=== PATIENT | male | born 1960 | race Caucasian/White ===

== ENCOUNTER → 2018-07-27 12:34 | Outpatient (CLI) | payer OTHER, SELFPAY ==
--- NOTE | 2018-07-27 12:38 | XR_ITS ---
XR shoulder LT min 2V HISTORY: ITS.REASON: Shoulder pain ORDERING PHYSICIAN: Devika Heath MD PATIENT AGE: 58 years Comparison: None FINDINGS: Osteoarthritic changes are present at the acromioclavicular joint. There is subacromial narrowing which may result in impingement symptomatology. Mild irregularity is present involving the greater tuberosity cortical surface which may be seen with rotator cuff disease. No acute fracture or dislocation. No lytic or blastic change. There is some cortical thickening of the distal shaft of the clavicle. Has the patient had an old clavicular fracture? IMPRESSION: Acromioclavicular arthropathy with subacromial stenosis which may result in impingement symptomatology. Please correlate with clinical findings
== END ==
PROVIDERS: PCP Family Medicine; Visit Provider Orthopaedic Surgery
DX: M25.512 Pain in left shoulder (principal)
CPT/HCPCS: 73030

== ENCOUNTER → 2022-07-06 14:16 | Outpatient (CLI) | payer OTHER, SELFPAY ==
--- NOTE | 2022-07-06 14:24 | CA_ITS ---
APPROVED REPORT EXAM: Comprehensive 2D, Doppler, and color-flow Echocardiogram College Administrator: HELIO Cabrera, RVS Ht: 5 ft 5 in Wt: 257lbs BSA: 2.20 BP: 130/78 mmHg Indications: SOA, Obesity, DM, HTN, HLD Echo Enhancing Agent Comments: Poor acoustic windows due to exterme body habitus. 2D Dimensions IVSd 1.17 cm LVEF (Visual) 64.50 % PWd 1.41 cm LA Volume 51.90 mL LVDd 5.17 cm LA Volume Index [id number] mL/m2 (M/F) 16-34 LVDs 3.34 cm LVOT 1.85 cm (M/F) 1.5-2.5 M-Mode Dimensions LA Diam 4.30 cm (1.9-4.0) Ao Diam 3.32 cm (2.0-3.7) EPSs 0.72 cm TAPSE 2.29 (<1.7) LV Diastology E Decel Time 203.00 (160-240 msec) E/A Ratio 0.99 MED E' 6.90 (< 7 cm/sec) MED A' 11.80 cm/s E'/MED E' Ratio 13.88 (>14) LAT E' 6.20 (<10 cm/sec) LAT A' 9.30 cm/s E/LAT E' Ratio 15.45 (>14) Aortic Valve LVOT Max 136.00 (70-110 cm/s) LVOT VTI 25.08 cm AoV Peak Coleman. 175.00 (50-130 cm/s) AO Peak GR. 12.30 mmHg AO Mean GR. 6.10 (<5 mmHg) AO VTI 31.00 (18-25 cm) RADHA (VTI) 2.17 (2.5-4.5 cm2) Mitral Valve MV A Velocity 97.00 (40-130 cm/s) E/A Ratio 0.99 MV Decel. Time 203.00 (160-240 ms) Pulmonary Valve PV Peak Velocity 130.00 (50-150 cm/s) Tricuspid Valve TR P. Velocity 152.00 cm/s Left Ventricle Left atrium is mildly enlarged, left ventricle is normal size, mild concentric left ventricular hypertrophy, estimated ejection fraction 55% with no regional wall motion abnormality. Grade 1 diastolic dysfunction seen without tissue Doppler evidence of raise left atrial pressure. Right Ventricle Right atrium and right ventricle are mildly enlarged with normal contractility. Aortic Valve Aortic valve is minimally thickened and fibrosed there is no aortic stenosis or aortic insufficiency. Mitral Valve Mitral valve is grossly normal, there is trace mitral regurgitation. Tricuspid Valve Tricuspid valve grossly normal, there is trace tricuspid regurgitation, tricuspid regurgitation jet velocity is inadequate for calculation of the right ventricular systolic pressure. Pulmonic Valve Pulmonic valve is poorly visualized. Great Vessels Aortic root is normal size. Inferior vena cava is poorly visualized. Pericardium No significant pericardial effusion noted. Conclusion 1. Technically difficult study because of the patient factors and poor acoustic windows. Mild biatrial enlargement, normal left ventricular size, mild concentric left ventricular hypertrophy, estimated ejection fraction 55% with no regional wall motion abnormality, grade 1 diastolic dysfunction seen without tissue Doppler evidence of raise left atrial pressure. 2. Mildly enlarged right ventricle with normal contractility. 3. Trace mitral and tricuspid regurgitation. 4. No significant pericardial effusion noted. 5. Inferior vena cava is poorly visualized. Electronically signed by : Bogdan Lara MD 07/07/2022 19:01:28
--- NOTE | 2022-07-06 14:51 | XR_ITS ---
FINAL REPORT TECHNIQUE: Chest PA & Lateral CLINICAL HISTORY: SOB FINDINGS: 2 views of the chest were performed. The heart size is normal. The mediastinum is within normal limits. There is no acute cardiopulmonary process. There are mild chronic changes in both lungs. There are no pleural effusions. There is no pneumothorax. The bony thorax appears intact. IMPRESSION: No acute cardiopulmonary process. Reviewed, Interpreted and Dictated by Yonis Coleman MD Transcribed by An Syed Authenticated and [facility]
== END ==
PROVIDERS: PCP Family Medicine; Visit Provider Family Medicine
DX: R06.02 Shortness of breath (principal)
CPT/HCPCS: 71046; 93306

== ENCOUNTER → 2022-08-05 10:30 | Outpatient (CLI) | payer OTHER, SELFPAY ==
[2022-08-05 19:29] LABS: Anion Gap 15.9 mEq/L (5-15); Blood Urea Nitrogen 17 mg/dl (9-20); Calcium 10.3 mg/dl (8.4-10.2); Carbon Dioxide 28 mmol/L (22.0-30.0); Chloride 102 mmol/L (98-107); Chol/HDL Ratio 5.7 (1-3.5); Cholesterol 176 mg/dl (140-200); Estimated Glomerular Filt Rate 114 ml/min (>60); GFR (African American) 138 ML/MIN (>60); Glucose 137 mg/dl (74-100); HDL Cholesterol 31 mg/dl (40-60); Potassium 4.9 mmoL/L (3.5-5.1); Sodium 141 mmol/L (136-145); Triglycerides 381 mg/dl (30-150); VLDL Cholesterol 76 mg/dL (0-40)
[2022-08-05 19:40] LABS: Direct LDL Cholesterol 73.47 mg/dL (100-129)
[2022-08-05 19:53] LABS: Microalbumin/Creatinine Ratio 215.2
[2022-08-05 19:55] LABS: Creatinine,Urine Random 17 mg/dL (Not Estab.)
[2022-08-05 20:00] LABS: Thyroid Stimulating Hormone 0.64 uIU/mL (0.465-4.68)
== END ==
PROVIDERS: PCP Family Medicine; Visit Provider Family Medicine
DX: E11.9 Type 2 diabetes mellitus without complications (principal); Z79.84 Long term (current) use of oral hypoglycemic drugs
CPT/HCPCS: 80048; 80061; 82043; 82570; 84443

== ENCOUNTER → 2022-10-07 23:30 | Outpatient (CLI) | payer OTHER, SELFPAY ==
[2022-10-07 19:20] LABS: Anion Gap 14.4 mEq/L (5-15); Blood Urea Nitrogen 15 mg/dl (9-20); Calcium 9.3 mg/dl (8.4-10.2); Carbon Dioxide 26 mmol/L (22.0-30.0); Chloride 103 mmol/L (98-107); Estimated Glomerular Filt Rate 136 ml/min (>60); GFR (African American) 165 ML/MIN (>60); Glucose 135 mg/dl (74-100); Potassium 4.4 mmoL/L (3.5-5.1); Sodium 139 mmol/L (136-145)
== END ==
PROVIDERS: PCP Family Medicine; Visit Provider Family Medicine
DX: I10 Essential (primary) hypertension (principal)
CPT/HCPCS: 80048

== ENCOUNTER → 2022-11-30 23:21 | Outpatient (CLI) | payer OTHER, SELFPAY ==
[2022-11-30 17:55] LABS: Adenovirus,PCR Not Detected (NotDetected); Bordetella Pertussis Not Detected (NotDetected); Chlamydophila Pneumoniae, PCR Not Detected (NotDetected); Coronavirus 19, PCR Not Detected (NotDetected); Coronavirus 229E Not Detected (NotDetected); Coronavirus NL63 Not Detected (NotDetected); Coronavirus OC43 Not Detected (NotDetected); Coronovirus HKU1,PCR Not Detected (NotDetected); Human Metapneumovirus Not Detected (NotDetected); Influenza A, PCR Not Detected (NotDetected); Influenza AH1, 2009 Not Detected (NotDetected); Influenza AH1, PCR Not Detected (NotDetected); Influenza AH3,PCR Not Detected (NotDetected); Influenza B, PCR Not Detected (NotDetected); Mycoplasma Pneumoniae, PCR Not Detected (NotDetected); Parainfluenza 1, PCR Not Detected (NotDetected); Parainfluenza 2, PCR Not Detected (NotDetected); Parainfluenza 4, PCR Not Detected (NotDetected); Respiratory Syncytial Virus Not Detected (NotDetected); Rhinovirus/Enterovirus Not Detected (NotDetected)
[2022-11-30 18:49] LABS: Basophils # 0.1 K/mm3 (0-0.2); Basophils % 0.7 % (0.1-2.0); Eosinophils # 0.2 K/mm3 (0.0-0.4); Eosinophils % 3.1 % (0.1-12.0); Hematocrit 53.8 % (42.0-52.0); Hemoglobin 16.4 g/dL (14.1-18.0); Lymphocytes # 1.7 K/mm3 (0.7-4.5); Mean Corpuscular HGB Conc 30.5 g/dL (31.8-35.4); Mean Corpuscular Hemoglobin 29.3 pg (27.0-31.2); Mean Corpuscular Volume 96.1 fl (80-94); Mean Platelet Volume 9.1 fl (7.4-10.4); Monocytes # 0.6 K/mm3 (0.1-1.0); Monocytes % 8.7 % (1.7-9.3); Neutrophils # 4.1 K/mm3 (1.8-7.8); Neutrophils % 61.5 % (37.0-80.0); Platelet Count 201 K/mm3 (142-424); White Blood Count 6.6 K/mm3 (4.8-10.8)
[2022-11-30 20:48] LABS: Parainfluenza 3, PCR Detected (NotDetected)
== END ==
PROVIDERS: PCP Nurse Practitioner; Visit Provider Nurse Practitioner
DX: J06.9 Acute upper respiratory infection, unspecified (principal); B34.8 Other viral infections of unspecified site
CPT/HCPCS: 85025; 87581; 87632; 87798; C9803; U0003; U0005

== ENCOUNTER → 2023-01-13 11:51 | Outpatient (CLI) | payer OTHER, SELFPAY ==
--- NOTE | 2023-01-13 12:05 | XR_ITS ---
FINAL REPORT CLINICAL HISTORY: cough COMPARISON: 07/06/2022 FINDINGS: Two views of the chest were obtained. The heart size and pulmonary vascularity are within normal limits. The mediastinum is normal. No acute pulmonary abnormality is identified. There is no pneumothorax. The bony thorax is intact. IMPRESSION: No active cardiopulmonary disease. Reviewed, Interpreted and Dictated by Ba Wilson III, MD Transcribed by Carley Mike Authenticated and [facility]
--- NOTE | 2023-01-13 12:05 | XR_ITS ---
FINAL REPORT CLINICAL HISTORY: low back pain FINDINGS: LUMBAR SPINE Five views demonstrate no acute fracture. There is a mild chronic T12 compression fracture. Mild and moderate degenerative changes with osteophytes are present. There is mild vascular calcification. Note is made of rightward curvature. There is no malalignment. IMPRESSION: Degenerative and chronic appearing findings. Reviewed, Interpreted and Dictated by Ba Wilson III, MD Transcribed by Carley Mike Authenticated and [facility]
[2023-01-13 13:06] LABS: Basophils # 0.1 K/mm3 (0-0.2); Basophils % 0.3 % (0.1-2.0); Eosinophils # 0.1 K/mm3 (0.0-0.4); Eosinophils % 0.4 % (0.1-12.0); Hematocrit 50.6 % (42.0-52.0); Hemoglobin 15.8 g/dL (14.1-18.0); Lymphocytes # 1.7 K/mm3 (0.7-4.5); Lymphocytes % 9.7 % (10-50); Mean Corpuscular HGB Conc 31.2 g/dL (31.8-35.4); Mean Corpuscular Hemoglobin 29.2 pg (27.0-31.2); Mean Corpuscular Volume 93.4 fl (80-94); Mean Platelet Volume 9.1 fl (7.4-10.4); Monocytes % 5.4 % (1.7-9.3); Neutrophils % 84.1 % (37.0-80.0); Platelet Count 248 K/mm3 (142-424); Red Blood Count 5.41 M/mm3 (4.60-6.20); Red Cell Distribution Width 13.8 % (11.5-17.5); White Blood Count 17.9 K/mm3 (4.8-10.8)
[2023-01-13 13:07] LABS: Creatinine,Urine Random 53 mg/dL (Not Estab.)
[2023-01-13 13:11] LABS: MANUAL DIFFERENTIAL MANUAL DIFFERENTIAL (MANUAL DIFF)
[2023-01-13 14:47] LABS: Lymphocytes % 11 % (10-50); Monocytes % 7 % (2-9); Neutrophils % 82 % (42-76); Platelet Estimate Normal; RBC Morphology Normal; Total Cells Counted 100
[2023-01-13 22:00] LABS: Creatinine,Urine Random 34 mg/dL (Not Estab.)
[2023-01-13 22:27] LABS: Microalbumin/Creatinine Ratio 161.7
== END ==
PROVIDERS: PCP Family Medicine; Visit Provider Family Medicine
DX: M54.50 Low back pain, unspecified (principal); R05.9 Cough, unspecified; E11.9 Type 2 diabetes mellitus without complications; Z79.84 Long term (current) use of oral hypoglycemic drugs
CPT/HCPCS: 36415; 71046; 72110; 82043; 82570; 85007; 85025

== ENCOUNTER → 2023-02-03 11:30 | Outpatient (CLI) | payer OTHER, SELFPAY ==
[2023-02-03 18:43] LABS: Basophils % 0.5 % (0.1-2.0); Eosinophils # 0.1 K/mm3 (0.0-0.4); Eosinophils % 1.9 % (0.1-12.0); Hematocrit 52.7 % (42.0-52.0); Hemoglobin 16.2 g/dL (14.1-18.0); Lymphocytes # 2.2 K/mm3 (0.7-4.5); Lymphocytes % 33.1 % (10-50); Mean Corpuscular HGB Conc 30.9 g/dL (31.8-35.4); Mean Corpuscular Hemoglobin 28.6 pg (27.0-31.2); Mean Corpuscular Volume 92.6 fl (80-94); Mean Platelet Volume 9.9 fl (7.4-10.4); Monocytes # 0.4 K/mm3 (0.1-1.0); Monocytes % 6.5 % (1.7-9.3); Neutrophils # 3.9 K/mm3 (1.8-7.8); Platelet Count 242 K/mm3 (142-424); Red Blood Count 5.69 M/mm3 (4.60-6.20); Red Cell Distribution Width 14.2 % (11.5-17.5); White Blood Count 6.7 K/mm3 (4.8-10.8)
[2023-02-03 19:48] LABS: Alanine Aminotransferase 44 U/L (12-78); Albumin Level 4.6 g/dl (3.5-5.0); Albumin/Globulin Ratio 1.9 (1.1-1.8); Alkaline Phosphatase 124 U/L (38-126); Anion Gap 19.6 mEq/L (5-15); Aspartate Amino Transferase 38 U/L (17-59); Bilirubin,Total 0.4 mg/dl (0.2-1.3); Blood Urea Nitrogen 12 mg/dl (9-20); Calcium 9.4 mg/dl (8.4-10.2); Carbon Dioxide 29 mmol/L (22.0-30.0); Chloride 97 mmol/L (98-107); Estimated Glomerular Filt Rate 167 ml/min (>60); GFR (African American) 203 ML/MIN (>60); Globulin 2.4 g/dL (1.3-3.2); Glucose 135 mg/dl (74-100); Magnesium 1.8 mg/dl (1.6-2.3); Phosphorous 3.9 mg/dl (2.5-4.5); Potassium 4.6 mmoL/L (3.5-5.1); Sodium 141 mmol/L (136-145)
[2023-02-03 20:04] LABS: 25-OH Vitamin D, Total 21.7 ng/mL (30-100)
[2023-02-03 20:15] LABS: Thyroid Stimulating Hormone 0.46 uIU/mL (0.465-4.68)
[2023-02-03 20:34] LABS: Vitamin B12 266 pg/mL (239-931)
== END ==
PROVIDERS: PCP Family Medicine; Visit Provider Family Medicine
DX: R53.83 Other fatigue (principal); I10 Essential (primary) hypertension; E55.9 Vitamin D deficiency, unspecified; E11.9 Type 2 diabetes mellitus without complications; Z79.84 Long term (current) use of oral hypoglycemic drugs
CPT/HCPCS: 80053; 82306; 82607; 83735; 84100; 84443; 85025

== ENCOUNTER → 2023-02-08 09:07 | Outpatient (CLI) | payer OTHER, SELFPAY | PROVIDERS: PCP Family Medicine; Visit Provider Family Medicine | DX: G47.33 Obstructive sleep apnea (adult) (pediatric) (principal); I10 Essential (primary) hypertension; R06.83 Snoring; R53.83 Other fatigue; E66.01 Morbid (severe) obesity due to excess calories | CPT/HCPCS: G0399 ==

== ENCOUNTER → 2023-08-12 16:46 | Outpatient (CLI) | payer OTHER, SELFPAY ==
--- NOTE | 2023-08-12 16:48 | MR_ITS ---
FINAL REPORT CLINICAL HISTORY: BILATERAL LOW BACK PAIN COMPARISON: None FINDINGS: Multiplanar MR imaging of the lumbar spine was performed without contrast. On the sagittal T2-weighted images, there is abnormal decreased signal throughout the lumbar discs. There is 30% loss of height of the superior endplate of T12 with associated bone marrow edema, likely an acute to subacute compression fracture. The vertebral alignment is normal. L1-2: There is no significant canal stenosis or neural foraminal narrowing. L2-3: There is no significant canal stenosis or neural foraminal narrowing. L3-4: There is no significant canal stenosis or neural foraminal narrowing. L4-5: There is no significant canal stenosis or neural foraminal narrowing. L5-S1: Mild annular bulge is present with endplate hypertrophy eccentric to the right, producing moderate right neural foraminal narrowing. IMPRESSION: 30% loss of height of the superior endplate of T12 with associated bone marrow edema, consistent with an acute to subacute compression fracture. Mild degenerative change at the L5-S1 level. Reviewed, Interpreted and Dictated by Yonis Coleman MD Transcribed by Natali Castillo Authenticated and [facility]
== END ==
PROVIDERS: PCP Family Medicine; Visit Provider Family Medicine
DX: M51.36 Other intervertebral disc degeneration, lumbar region (principal); M54.50 Low back pain, unspecified
CPT/HCPCS: 72148; 76376

== ENCOUNTER → 2023-09-09 09:02 | Outpatient (POV) | payer OTHER, SELFPAY ==
[2023-09-09 09:38] VITALS: BP 165/73; PULSE 87; RESP 18; O2SAT 92; BMI 40.2
--- NOTE | 2023-09-09 09:56 | EXP.PAIN.OV ---
HPI Data of Consult Patient: new to practice Consult date: 09/09/23 Requesting Physician: Kristin Low APRN Primary Care Provider: Harshal Garcia MD Consult Narrative Reason for consult: Mid back pain, low back pain History of present illness: Mr. Devries is a 63 year old male who presents today as a new patient. He is a referral from Dr. Garcia's office. Today he rates his pain an 8 out of 10. Patient states his pain is all in his mid to low back. He describes this as a fairly constant pain that is hard to describe. He states it is worse when he is getting up in the mornings and trying to get up and move around. He states the pain can go to a 10 out of 10. He states it is a achy, sharp sensation that does radiate around the bottom of his ribs and can go towards the left side of his abdomen. Patient states this is all related to a fall that occurred back in around March where he fell off a ladder. Patient does state he immediately had sharp shooting pains however it has gotten a little better from the initial injury. He states he had trouble getting imaging done due to insurance problems. Patient states that they just got the MRI approved in July. Patient states he has used Tylenol and ibuprofen along with heat and ice and topicals such as Aspercreme for temporary relief. Patient denies any recent physical therapy. Patient states that he tries to stay active but is limited due to the worsening pain. Patient denies any previous back surgery or history of osteoporosis to his knowledge. Patient does state that he had previous issues with his shoulders and did use to get steroid injections. Patient denies any blood thinners. His Tony has been reviewed and is appropriate. CC: Kristin Low APRN [facility] Disclaimer: The information contained in this section may have been updated after the patient was seen, as this information can be updated by other users. 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 Diastolic dysfunction DM type 2 (diabetes mellitus, type 2) Gout Hyperlipemia Hypertension Morbid obesity Negative colorectal cancer screening using DNA-based stool test Olecranon bursitis of left elbow Vitamin D deficiency Surgical History History of rotator cuff surgery History of tonsillectomy Family History Other Heart attack Stroke Social History (Updated 09/09/23 @ 09:39 by Poppy Tapia RN) Smoking Status: Never smoker alcohol intake: never current occupational status: employed Travel in the last 8 weeks: None Review of Systems Review of Systems Review of systems:: pertinent systems reviewed and negative unless documented below Review of systems (narrative): Review of Systems: General: No recent weight changes, no fever, no sleep disturbances Respiratory: No cough, no shortness of air, no recurring pulmonary infections Cardiovascular/peripheral vascular: No chest pain, no palpitations, no edema, no shortness of breath Gastrointestinal: No new onset incontinence, normal bowel movements reported Genitourinary: No new onset incontinence Musculoskeletal: Mid back pain, low back pain Psychiatric: [Normal mood/affect] Neurological: [Denies weakness in extremities], [denies balance issues] Meds Home Medications and Allergies Home Medications Medication Instructions Recorded Confirmed Type meloxicam 15 mg tablet 15 mg PO DAILY 03/11/22 09/09/23 History fluticasone propionate 50 1 spray intranasal DAILY #16 grams 08/31/22 09/09/23 Rx mcg/actuation nasal spray,suspension (Allergy Relief (fluticasone)) albuterol sulfate 90 mcg/actuation 2 puff inhalation Q4-6H PRN 11/30/22 09/09/23 Rx aerosol inhaler shortness of breath or wheezing #8.5 grams diazepam 5 mg tablet 5 mg PO DAILY PRN prior to 02/03/23 09/09/23 Rx procedure #1 tab blood sugar diagnostic (Accu-Chek #50 strips 02/17/23 09/09/23 Rx Jaz Plus test strips) ertugliflozin 15 mg tablet See Rx Instructions .Route 05/19/23 09/09/23 Rx (Steglatro) .COMPLEX #30 tabs pioglitazone 30 mg tablet 30 mg PO DAILY #90 tabs 07/08/23 09/09/23 Rx losartan 100 mg tablet See Rx Instructions .Route 07/27/23 09/09/23 Rx .COMPLEX #90 tabs spironolactone 25 mg tablet 25 mg PO DAILY #90 tabs 07/27/23 09/09/23 Rx simvastatin 20 mg tablet See Rx Instructions .Route 08/02/23 09/09/23 Rx .COMPLEX #30 tabs allopurinol 300 mg tablet See Rx Instructions .Route 08/16/23 09/09/23 Rx .COMPLEX #30 tabs metformin 1,000 mg tablet See Rx Instructions .Route 08/16/23 09/09/23 Rx .COMPLEX #60 tabs New Prescriptions to Start Prescriptions: Allergies Allergy/AdvReac Type Severity Reaction Status Date / Time No Known Allergies Allergy Verified 02/17/23 09:40 Objective Vital signs: Pulse Resp BP Pulse Ox O2 Del Method 87 18 165/73 H 92 L Room Air 09/09/23 09:38 09/09/23 09:38 09/09/23 09:38 09/09/23 09:38 09/09/23 09:38 Narrative: Physical Exam: General: Alert and oriented x3, no acute distress, pleasant and cooperative Lungs: Respirations even and unlabored, symmetrical chest expansion Eyes: PERRL Musculoskeletal: Flexion and extension of thoracic [spine] somewhat guarded secondary to pain, [antalgic gait noted] Neurological: Speech clear, no gross sensory deficit Additional findings Additional findings: FINDINGS: Multiplanar MR imaging of the lumbar spine was performed without contrast. On the sagittal T2-weighted images, there is abnormal decreased signal throughout the lumbar discs. There is 30% loss of height of the superior endplate of T12 with associated bone marrow edema, likely an acute to subacute compression fracture. The vertebral alignment is normal. L1-2: There is no significant canal stenosis or neural foraminal narrowing. L2-3: There is no significant canal stenosis or neural foraminal narrowing. L3-4: There is no significant canal stenosis or neural foraminal narrowing. L4-5: There is no significant canal stenosis or neural foraminal narrowing. L5-S1: Mild annular bulge is present with endplate hypertrophy eccentric to the right, producing moderate right neural foraminal narrowing. IMPRESSION: 30% loss of height of the superior endplate of T12 with associated bone marrow edema, consistent with an acute to subacute compression fracture. Mild degenerative change at the L5-S1 level. Reviewed, Interpreted and Dictated by Yonis Coleman MD Transcribed by Natali Castillo Authenticated and [facility] Assessment and Plan *Assessment and plan (1) Degenerative disc disease, lumbar: Status: Acute Category: Medical Code(s): M51.36 - Other intervertebral disc degeneration, lumbar region (2) Compression fracture of thoracic vertebra: Status: Acute Qualifiers: Thoracic vertebra fracture level: T12 Fracture healing: with delayed healing Encounter type: subsequent encounter Qualified Code(s): S22.080G - Wedge compression fracture of T11-T12 vertebra, subsequent encounter for fracture with delayed healing Category: Medical Code(s): S22.000A - Wedge compression fracture of unspecified thoracic vertebra, initial encounter for closed fracture (3) Mid back pain: Status: Acute Category: Medical Code(s): M54.9 - Dorsalgia, unspecified (4) Low back pain: Status: Acute Qualifiers: Chronicity: acute Back pain laterality: bilateral Sciatica presence: without sciatica Qualified Code(s): M54.50 - Low back pain, unspecified Category: Medical Code(s): M54.50 - Low back pain, unspecified Plan Patient is experiencing significant pain in his mid back related to a recent compression fracture of T12. I have discussed with the patient that he may be a beneficial candidate of a kyphoplasty procedure however due to this fracture occurring possibly in March we will review the images additionally with Dr. Hogue. Risk and benefits and educational handouts were given during today's visit. I will order a DEXA scan to review possible osteoporosis diagnosis. I have discussed with the patient that I do believe he would benefit from a thoracic epidural steroid injection at this level. Patient is agreeable to this. Risk and benefits were discussed with the patient and he would like to proceed forward. Patient is not on any blood thinners. We will schedule the patient for a TESI T12. Patient has been instructed to contact the clinic with any concerns before the next appointment. Dr. Hogue has reviewed this note and agrees with this plan of care. This note was dictated using voice recognition software and make contain errors or omissions.
== END ==
LOC: SC.PAIN 09:03
PROVIDERS: PCP Family Medicine; Visit Provider Nurse Practitioner Family
DX: M51.36 Other intervertebral disc degeneration, lumbar region (principal); S22.080G Wedge compression fracture of T11-T12 vertebra, subsequent encounter for fracture with delayed healing; M54.50 Low back pain, unspecified
CPT/HCPCS: 99202; G0463

== ENCOUNTER 2023-09-29 08:51 | Outpatient (CLI) | payer OTHER, SELFPAY ==
--- NOTE | 2023-09-29 08:55 | XR_ITS ---
FINAL REPORT TECHNIQUE: Bone densitometry calculations of the lumbar spine and left hip were obtained. CLINICAL HISTORY: SCREENING COMPARISON: None FINDINGS: Using L1-4, the bone mineral density of the spine is 0.98 g/cm2, corresponding to T-score of -1 and a Z score of -0.3. This is within the range of mild osteopenia. Using the left hip, the bone mineral density of the femoral neck is 0.76 g/cm2, corresponding to a T-score of -1.3 and a Z-score of -0.2. This is within the range of mild osteopenia. NOTE: T-score: Standard deviation compared with peak bone mass of young adult mean. *Following the recommendations of the International Society of Bone densitometry, classification of hip BMD is based on the lower of two T-scores; total hip or femoral neck. IMPRESSION: Bone mineral density of the lumbar spine within the range of mild osteopenia. Bone mineral density of the left femoral neck within the range of mild osteopenia. Reviewed, Interpreted and Dictated by Brinda Dunlap MD Transcribed by Natali Castillo Authenticated and [facility]
== END 2023-09-29 23:59 ==
LOC: RAD 08:51
PROVIDERS: PCP Family Medicine; Visit Provider Nurse Practitioner Family
DX: S22.000A Wedge compression fracture of unspecified thoracic vertebra, initial encounter for closed fracture (principal); M85.89 Other specified disorders of bone density and structure, multiple sites
CPT/HCPCS: 77080

== ENCOUNTER → 2023-10-21 12:45 | Outpatient (POV) | payer OTHER, SELFPAY ==
--- NOTE | 2023-10-21 13:18 | A.OFFVIS_ITS ---
[facility] Pain Management SOAP Note Subjective:: Patient is a pleasant 63-year-old who presents today for insurance denial of a kyphoplasty of T12 as well as a thoracic epidural of T12. We are currently treating the patient for mid to low back pain, degenerative disc disease of thoracic and lumbar spine with thoracic and lumbar radiculopathy symptoms, T12 superior endplate fracture. Today he rates his pain a 5 out of 10. Patient states he continues to have significant pain in and around his mid to low back more prominent on the left side. He does state it radiates down and describes it as a sharp achy sensation that is worse with increased activity or ambulation. He states he has significant difficulty getting up and going on due to this pain. He states it does interfere with his ability perform activities of daily living such as cooking and cleaning. Patient did have a fall that initially started all of his symptoms back in March where he fell off a ladder however the pain seemed to get better and then worse and just more recently. Patient was denied a MRI up until July and at that time was diagnosed with a compression fracture with 30% height loss. Patient is still wanting to proceed forward with the thoracic epidural and kyphoplasty if possible. Patient has tried Tylenol and ibuprofen along with heat and ice and multiple topicals with minimal relief. Patient is unable to tell right current physical therapy due to the worsening pain and limited range of motion related to the compression fracture. Patient was also given diazepam and tramadol in the past from his primary care provider however this did very little to change his pain symptoms. His Tony has been reviewed and is appropriate. Review of Systems: General: No recent weight changes, no fever, no sleep disturbances Respiratory: No cough, no shortness of air, no recurring pulmonary infections Cardiovascular/peripheral vascular: No chest pain, no palpitations, no edema, no shortness of breath Gastrointestinal: No new onset incontinence, normal bowel movements reported Genitourinary: No new onset incontinence Musculoskeletal: Mid to low back pain Psychiatric: [Normal mood/affect] Neurological: [Denies weakness in extremities], [denies balance issues] Objective:: Physical Exam: General: Alert and oriented x3, no acute distress, pleasant and cooperative Lungs: Respirations even and unlabored, symmetrical chest expansion Eyes: PERRL Musculoskeletal: Flexion and extension of thoracic [spine] somewhat guarded secondary to pain, [antalgic gait noted] point tenderness along the lower thoracic/upper lumbar region with palpation Neurological: Speech clear, no gross sensory deficit Assessment:: Mid to low back pain, degenerative disc disease of thoracic and lumbar spine with thoracic and lumbar radiculopathy symptoms, T12 superior endplate compression fracture Plan:: Patient is still experiencing significant pain related to his compression fracture of the T12 vertebra. Patient does have acute on chronic consistent findings. I have discussed with the patient that I will order a standing thoracic/lumbar x-ray of AP and lateral views to compare it to the previous MRI and determine if the fracture is still evolving. Patient will be resubmitted for the thoracic epidural steroid injection and kyphoplasty if his x-ray imaging findings are consistent with still an acute diagnosis. Risk and benefits of both of these procedures were explained to the patient and he would like to proceed forward with this plan of care. Patient has tried and failed conservative treatment such as oral medications, heat and ice, topicals, at home stretching and exercise longer than 6 weeks. We will submit for a TESI T11-T12 under fluoroscopy and wait until we have x-ray findings to determine whether or not to resubmit for the kyphoplasty. Patient has been instructed to contact the clinic with any concerns before the next appointment. Dr. Hogue has reviewed this note and agrees with this plan of care. This note was dictated using voice recognition software and make contain errors or omissions. [facility] Disclaimer: The information contained in this section may have been updated after the patient was seen, as this information can be updated by other users. 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
--- NOTE | 2023-10-21 13:30 | XR_ITS ---
FINAL REPORT CLINICAL HISTORY: MID BACK PAIN, COMPARE TO RECENT MRI COMPRESSION FX ALL IMAGES WERE DONE STANDING FINDINGS: THORACIC SPINE 2 views were obtained. There is no acute fracture. There is no malalignment. The disc spaces are preserved. There is minimal anterior osteophyte formation in the mid thoracic spine. There is no soft tissue abnormality. IMPRESSION: No acute bony abnormality. LUMBAR SPINE 2 views were obtained. There is no acute fracture. There is no malalignment. There are mild hypertrophic changes at L1-2 and L5-S1. There is no soft tissue abnormality. IMPRESSION: No acute bony abnormality. Reviewed, Interpreted and Dictated by Yonis Coleman MD Transcribed by Jyoti Barcenas Authenticated and [facility]
[2023-10-21 15:24] VITALS: BP 133/67; PULSE 94; RESP 18; O2SAT 92; BMI 39.1
== END ==
PROVIDERS: PCP Family Medicine; Visit Provider Nurse Practitioner Family
DX: M51.14 Intervertebral disc disorders with radiculopathy, thoracic region (principal); M51.16 Intervertebral disc disorders with radiculopathy, lumbar region; M48.54XG Collapsed vertebra, not elsewhere classified, thoracic region, subsequent encounter for fracture with delayed healing
CPT/HCPCS: 72083; 99212; G0463

== ENCOUNTER 2023-11-02 11:17 | Day surgery (SDC) | payer OTHER, SELFPAY ==
[2023-11-02 11:44] VITALS: BP 152/72; PULSE 93; RESP 18; TEMP 36.7; O2SAT 94; BMI 38.3
[2023-11-02] MEDS: methylPREDNISolone ACETATE 80MG/ML VIAL 80 MG (12:10)
--- NOTE | 2023-11-02 12:14 | P.PCN_ITS ---
Procedure Date: 11/02/23 Time: 12:00 Anesthesiologist:: Scott Dominguez CRNA Complications:: None Pre-procedure Diagnosis:: Degenerative disc thoracic spine. Thoracic radiculopathy. Post-procedure Diagnosis:: Same. Indications for Procedure:: Patient is a very pleasant 63-year-old male who comes our clinic today for thoracic epidural steroid injection at the T11-12 level. Patient reports T- spine pain. Some T-spine pain radiculopathy as well. He rates his pain 7/10. Procedure Details:: Procedure:Thoracic epidural steroid injection under fluoroscopy Informed consent was obtained and the risks and benefits of the procedure were explained to the patient. The patient was taken to the procedure room and noninvasive monitors placed, including noninvasive blood pressure cuff and pulse oximeter. The back was viewed using C-Arm fluoroscopy and prepped using Betadine as a cleansing solution and the T11-12 interspace was palpated. Skin and subcutaneous tissues were anesthetized using lidocaine 1.5% and a 25-gauge needle. After this, an 18-gauge Touhy epidural needle was placed into the T11-12 interspace and advanced using fluoroscopic guidance and loss of resistance to air until the epidural space was encountered. After confirmation of needle placement in the epidural space, with dye, a solution containing lidocaine 1.5%, 4 mL and Depo-Medrol 80 mg were incrementally injected into the thoracic epidural space. The patient tolerated the procedure well with no complications. The patient was observed in the Pain Clinic and then discharged home neurologically intact. Plan and Disposition:: Patient was discharged out incident.
[2023-11-02 12:18] VITALS: BP 164/90; PULSE 82; RESP 18; O2SAT 94
== END 2023-11-02 12:18 | disposition home or self-care (01) ==
PROVIDERS: PCP Family Medicine; Visit Provider Nurse Anesthetist, Certified Registered
DX: M51.14 Intervertebral disc disorders with radiculopathy, thoracic region (principal)
CPT/HCPCS: 62321; J1040

== ENCOUNTER 2023-11-17 14:05 | Outpatient (POV) | payer OTHER, SELFPAY ==
[2023-11-17 14:17] VITALS: BP 134/71; PULSE 90; RESP 18; BMI 40.1
--- NOTE | 2023-11-17 14:53 | A.OFFVIS_ITS ---
[facility] Pain Management SOAP Note Subjective:: Patient is a pleasant 63-year-old male who presents today for follow-up of thoracic epidural steroid injection T11-T12 on 11/02/2023. Today he rates his pain a 3 out of 10. Patient denies any new trauma or injury. He states he has had at least 80% relief following this injection and feels like it still providing continuous improvement. He does state that he has been able to increase his activity with decreased pain symptoms overall. He states he will occasionally still have some pain but is much more manageable and not as severe. His Tony has been reviewed and is appropriate. Review of Systems: General: No recent weight changes, no fever, no sleep disturbances Respiratory: No cough, no shortness of air, no recurring pulmonary infections Cardiovascular/peripheral vascular: No chest pain, no palpitations, no edema, no shortness of breath Gastrointestinal: No new onset incontinence, normal bowel movements reported Genitourinary: No new onset incontinence Musculoskeletal: Mid back pain Psychiatric: [Normal mood/affect] Neurological: [Denies weakness in extremities], [denies balance issues] Objective:: Physical Exam: General: Alert and oriented x3, no acute distress, pleasant and cooperative Lungs: Respirations even and unlabored, symmetrical chest expansion Eyes: PERRL Musculoskeletal: Flexion and extension of thoracic [spine] somewhat guarded secondary to pain, [antalgic gait noted] Neurological: Speech clear, no gross sensory deficit Assessment:: Degenerative disc disease of thoracic and lumbar spine with thoracic and lumbar radiculopathy symptoms, T12 superior endplate fracture Plan:: Patient has had significant improvement following his thoracic epidural and does not require any additional injection therapy. Patient will return to clinic in 1 month for reevaluation of symptoms and plan of care. Patient has been instructed to contact the clinic with any concerns before the next appointment. Dr. Hogue has reviewed this note and agrees with this plan of care. This note was dictated using voice recognition software and make contain errors or omissions. [facility] Disclaimer: The information contained in this section may have been updated after the patient was seen, as this information can be updated by other users. 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
== END 2023-11-17 23:59 ==
LOC: SC.PAIN 14:06
PROVIDERS: PCP Family Medicine; Visit Provider Nurse Practitioner Family
DX: M51.14 Intervertebral disc disorders with radiculopathy, thoracic region (principal); M51.16 Intervertebral disc disorders with radiculopathy, lumbar region; S22.080D Wedge compression fracture of T11-T12 vertebra, subsequent encounter for fracture with routine healing
CPT/HCPCS: 99212; G0463

== ENCOUNTER 2023-12-15 08:36 | Outpatient (POV) | payer OTHER, SELFPAY ==
[2023-12-15 08:44] VITALS: BP 173/71; PULSE 73; RESP 18; O2SAT 96; BMI 40.1
--- NOTE | 2023-12-15 09:05 | EXP.PAIN.SOA ---
[facility] Pain Management SOAP Note Subjective:: Patient is a pleasant 63-year-old male who presents today for 1 month follow-up. Today he rates his pain a 3 out of 10. Patient denies any new trauma or injury. He does state that he is still doing really well following his thoracic epidural. He states that it has continued to provide relief. Patient states that he has not had to even use [id number] medication due to the pain decreased. His Tony has been reviewed and is appropriate. Review of Systems: General: No recent weight changes, no fever, no sleep disturbances Respiratory: No cough, no shortness of air, no recurring pulmonary infections Cardiovascular/peripheral vascular: No chest pain, no palpitations, no edema, no shortness of breath Gastrointestinal: No new onset incontinence, normal bowel movements reported Genitourinary: No new onset incontinence Musculoskeletal: Mid back pain Psychiatric: [Normal mood/affect] Neurological: [Denies weakness in extremities], [denies balance issues] Objective:: Physical Exam: General: Alert and oriented x3, no acute distress, pleasant and cooperative Lungs: Respirations even and unlabored, symmetrical chest expansion Eyes: PERRL Musculoskeletal: Flexion and extension of thoracic [spine] somewhat guarded secondary to pain, [antalgic gait noted] Neurological: Speech clear, no gross sensory deficit Assessment:: Degenerative disc disease of thoracic and lumbar spine with thoracic and lumbar radiculopathy symptoms, T12 superior endplate fracture Plan:: Patient continues to do well and does not require any injection therapy at this time. Patient will return to clinic in 3 months for reevaluation of symptoms and plan of care. Patient has been instructed to contact the clinic with any concerns before the next appointment. Dr. Hogue has reviewed this note and agrees with this plan of care. This note was dictated using voice recognition software and make contain errors or omissions. [facility] Disclaimer: The information contained in this section may have been updated after the patient was seen, as this information can be updated by other users. 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
== END 2023-12-15 23:59 ==
LOC: SC.PAIN 08:37
PROVIDERS: PCP Family Medicine; Visit Provider Nurse Practitioner Family
DX: M51.14 Intervertebral disc disorders with radiculopathy, thoracic region (principal); M51.16 Intervertebral disc disorders with radiculopathy, lumbar region; S22.089D Unspecified fracture of T11-T12 vertebra, subsequent encounter for fracture with routine healing
CPT/HCPCS: 99212; G0463

== ENCOUNTER 2024-03-27 09:20 | Outpatient (POV) | payer MEDICARE, SELFPAY ==
[2024-03-27 09:28] VITALS: BP 143/77; PULSE 76; RESP 16; O2SAT 96; BMI 39.4
--- NOTE | 2024-03-27 09:50 | EXP.PAIN.SOA ---
[facility] Disclaimer: The information contained in this section may have been updated after the patient was seen, as this information can be updated by other users. 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 Today he rates his pain a 1 out of 10. Patient denies any new trauma or injury. He does state overall he is still doing really well. He states he will have pain from time to time when he has been working on his truck and goes to get up or in the mornings however it is still very manageable. His Tony has been reviewed and is appropriate. Review of Systems: General: No recent weight changes, no fever, no sleep disturbances Respiratory: No cough, no shortness of air, no recurring pulmonary infections Cardiovascular/peripheral vascular: No chest pain, no palpitations, no edema, no shortness of breath Gastrointestinal: No new onset incontinence, normal bowel movements reported Genitourinary: No new onset incontinence Musculoskeletal: Mid back pain Psychiatric: [Normal mood/affect] Neurological: [Denies weakness in extremities], [denies balance issues] Pain at rest (0-10 scale): 1 Objective Objective:: BreastPhysical Exam: General: Alert and oriented x3, no acute distress, pleasant and cooperative Lungs: Respirations even and unlabored, symmetrical chest expansion Eyes: PERRL Musculoskeletal: Flexion and extension of thoracic [spine] somewhat guarded secondary to pain, [antalgic gait noted] Neurological: Speech clear, no gross sensory deficit Has patient had previous pain injection?: No Conservative treatment options previously tried: Home exercise plan Length of treatment: Longer than 12 weeks Meds Home Medications and Allergies Home Medications ?Medication ?Instructions ?Recorded ?Confirmed ?Type meloxicam 15 mg tablet 15 mg PO DAILY 03/11/22 03/27/24 History fluticasone propionate 50 1 spray intranasal DAILY #16 grams 08/31/22 03/27/24 Rx mcg/actuation nasal spray,suspension (Allergy Relief (fluticasone)) albuterol sulfate 90 mcg/actuation 2 puff inhalation Q4-6H PRN 11/30/22 03/27/24 Rx aerosol inhaler shortness of breath or wheezing #8.5 grams diazepam 5 mg tablet 5 mg PO DAILY PRN prior to 02/03/23 03/27/24 Rx procedure #1 tab blood sugar diagnostic (Accu-Chek #50 strips 02/17/23 03/27/24 Rx Jaz Plus test strips) ertugliflozin 15 mg tablet See Rx Instructions .Route 05/19/23 03/27/24 Rx (Steglatro) .COMPLEX #30 tabs pioglitazone 30 mg tablet 30 mg PO DAILY #90 tabs 07/08/23 03/27/24 Rx spironolactone 25 mg tablet 25 mg PO DAILY #90 tabs 07/27/23 03/27/24 Rx allopurinol 300 mg tablet See Rx Instructions .Route 08/16/23 03/27/24 Rx .COMPLEX #30 tabs metformin 1,000 mg tablet See Rx Instructions .Route 08/16/23 03/27/24 Rx .COMPLEX #60 tabs losartan 100 mg tablet See Rx Instructions .Route 01/25/24 03/27/24 Rx .COMPLEX #90 tabs simvastatin 20 mg tablet See Rx Instructions .Route 01/25/24 03/27/24 Rx .COMPLEX #30 tabs New Prescriptions to Start Prescriptions: Allergies Allergy/AdvReac Type Severity Reaction Status Date / Time No Known Allergies Allergy Verified 03/27/24 09:30 Assessment and Plan *Assessment and plan (1) Mid back pain: Status: Acute Category: Medical Code(s): M54.9 - Dorsalgia, unspecified (2) Compression fracture of thoracic vertebra: Status: Acute Qualifiers: Encounter type: subsequent encounter Thoracic vertebra fracture level: T12 Fracture healing: with delayed healing Qualified Code(s): S22.080G - Wedge compression fracture of T11-T12 vertebra, subsequent encounter for fracture with delayed healing Category: Medical Code(s): S22.000A - Wedge compression fracture of unspecified thoracic vertebra, initial encounter for closed fracture Plan Patient continues to do well following her thoracic epidural and does not require any additional injection therapy at this time. Patient will return to clinic in 6 months for reevaluation of symptoms and plan of care. Patient has been instructed to contact the clinic with any concerns before the next appointment. Dr. Hogue has reviewed this note and agrees with this plan of care. This note was dictated using voice recognition software and make contain errors or omissions. All injections are used with Lidocaine or Bupivacaine and Depo Medrol.
== END 2024-03-27 23:59 | disposition home or self-care (01) ==
LOC: SC.PAIN 09:22
PROVIDERS: PCP Family Medicine; Visit Provider Nurse Practitioner Family
DX: M54.9 Dorsalgia, unspecified (principal); S22.080G Wedge compression fracture of T11-T12 vertebra, subsequent encounter for fracture with delayed healing
CPT/HCPCS: 99212; G0463

== ENCOUNTER 2024-11-23 09:30 | Outpatient (POV) | payer MEDICARE, SELFPAY ==
[2024-11-23 10:01] VITALS: BP 131/68; PULSE 84; RESP 18; O2SAT 97; BMI 39.7
--- NOTE | 2024-11-23 10:34 | A.OFFVIS_ITS ---
[facility] Disclaimer: The information contained in this section may have been updated after the patient was seen, as this information can be updated by other users. 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 Today he rates his pain a 8 out of 10. He denies any new injuries or falls. Patient does state that he is having worsening pain in his low back more prominent on the left side. He did previously have a thoracic epidural back in October 2023 that did provide significant relief and has lasted nearly a year. Patient does state that he did not end up doing the immediate follow-up because he was feeli ng so well. Patient does state that just now the pain has started to increase in intensity and he would did want to see about getting something done. Patient denies any radiating symptoms to his legs. He describes it as a aching sensation that is worse with certain movements such as bending, lifting and twisting. He does also make mention that prolonged sitting frequently aggravates his symptoms. He has continued conservative treatments. Patient is stating it is interfering with his ability perform activities of daily living such as cooking and cleaning. His Tony has been reviewed and is appropriate. Review of Systems: General: No recent weight changes, no fever, no sleep disturbances Respiratory: No cough, no shortness of air, no recurring pulmonary infections Cardiovascular/peripheral vascular: No chest pain, no palpitations, no edema, no shortness of breath Gastrointestinal: No new onset incontinence, normal bowel movements reported Genitourinary: No new onset incontinence Musculoskeletal: Low back pain left-sided Psychiatric: [Normal mood/affect] Neurological: [Denies weakness in extremities], [denies balance issues] Pain at rest (0-10 scale): 8 Objective Objective:: Physical Exam: General: Alert and oriented x3, no acute distress, pleasant and cooperative Lungs: Respirations even and unlabored, symmetrical chest expansion Eyes: PERRL Musculoskeletal: Flexion and extension of lumbar [spine] somewhat guarded secondary to pain, [antalgic gait noted] positive Kemps test left-sided Neurological: Speech clear, no gross sensory deficit Has patient had previous pain injection?: No Conservative treatment options previously tried: Home exercise plan Length of treatment: Longer than 12 weeks Meds Home Medications and Allergies Home Medications ?Medication ?Instructions ?Recorded ?Confirmed ?Type meloxicam 15 mg tablet 15 mg PO DAILY 03/11/22 11/23/24 History fluticasone propionate 50 1 spray intranasal DAILY #16 grams 08/31/22 11/23/24 Rx mcg/actuation nasal spray,suspension (Allergy Relief (fluticasone)) albuterol sulfate 90 mcg/actuation 2 puff inhalation Q4-6H PRN 11/30/22 11/23/24 Rx aerosol inhaler shortness of breath or wheezing #8.5 grams diazepam 5 mg tablet 5 mg PO DAILY PRN prior to 02/03/23 11/23/24 Rx procedure #1 tab blood sugar diagnostic (Accu-Chek #50 strips 02/17/23 11/23/24 Rx Jaz Plus test strips) ertugliflozin 15 mg tablet See Rx Instructions .Route 05/19/23 11/23/24 Rx (Steglatro) .COMPLEX #30 tabs pioglitazone 30 mg tablet 30 mg PO DAILY #90 tabs 07/08/23 11/23/24 Rx spironolactone 25 mg tablet 25 mg PO DAILY #90 tabs 07/27/23 11/23/24 Rx allopurinol 300 mg tablet See Rx Instructions .Route 08/16/23 11/23/24 Rx .COMPLEX #30 tabs metformin 1,000 mg tablet See Rx Instructions .Route 08/16/23 11/23/24 Rx .COMPLEX #60 tabs losartan 100 mg tablet See Rx Instructions .Route 04/24/24 11/23/24 Rx .COMPLEX #90 tabs simvastatin 20 mg tablet See Rx Instructions .Route 04/27/24 11/23/24 Rx .COMPLEX #30 tabs New Prescriptions to Start Prescriptions: Allergies Allergy/AdvReac Type Severity Reaction Status Date / Time No Known Allergies Allergy Verified 03/27/24 09:30 Assessment and Plan *Assessment and plan (1) Low back pain: Status: Acute Qualifiers: Chronicity: acute Back pain laterality: bilateral Sciatica presence: without sciatica Qualified Code(s): M54.50 - Low back pain, unspecified Category: Medical Code(s): M54.50 - Low back pain, unspecified (2) Mid back pain: Status: Acute Category: Medical Code(s): M54.9 - Dorsalgia, unspecified (3) Degenerative disc disease, lumbar: Status: Acute Category: Medical Code(s): M51.369 - Other intervertebral disc degeneration, lumbar region without mention of lumbar back pain or lower extremity pain (4) Lumbar facet arthropathy: Status: Acute Category: Medical Code(s): M47.816 - Spondylosis without myelopathy or radiculopathy, lumbar region Plan Patient is experiencing significant pain in his low back that is worse with bending, twisting or lifting. Patient did have limited range of motion of his lumbar spine with a positive left Kemps test during today's visit. I did discuss with the patient that I do believe he would benefit from a lumbar medial branch block. Risk and benefits were discussed with the patient and he would like to proceed forward with this plan of care. Patient has tried and failed conservative therapy including oral medications, heat and ice, topicals, at home stretching exercise for longer than 12 weeks. Patient has been experiencing chronic low back pain for longer than a year. Patient was counseled that if he does get significant relief with his first lumbar medial branch block that we will plan on repeating it with the plan to progress forward to a lumbar RFA at a later date. Patient agrees with this plan of care. Patient will be scheduled for [his] first diagnostic lumbar medial branch block left-sided L4-L5 and L5-S1 under fluoroscopy. Patient has been instructed to contact the clinic with any concerns before the next appointment. Dr. Hogue has reviewed this note and agrees with this plan of care. This note was dictated using voice recognition software and make contain errors or omissions. All injections are used with Lidocaine, Bupivacaine and Depo Medrol. Occasionally urine drug screen is needed to verify patient's compliance with our office pain contract. This is ordered based off specific treatments related to chronic pain with the potential to abuse certain medications.
== END 2024-11-23 23:59 | disposition home or self-care (01) ==
PROVIDERS: PCP Family Medicine; Visit Provider Nurse Practitioner Family
DX: M54.50 Low back pain, unspecified (principal); M54.9 Dorsalgia, unspecified; M51.369 Other intervertebral disc degeneration, lumbar region without mention of lumbar back pain or lower extremity pain; M47.816 Spondylosis without myelopathy or radiculopathy, lumbar region; Z73.89 Other problems related to life management difficulty
CPT/HCPCS: 99212; G0463

== ENCOUNTER 2024-12-12 14:04 | Day surgery (SDC) | payer MEDICARE, SELFPAY ==
[2024-12-12 14:16] VITALS: BP 118/71; PULSE 102; RESP 16; TEMP 37; O2SAT 96; BMI 39.6
--- NOTE | 2024-12-12 14:36 | EXP.PAIN.PRO ---
Procedure Date: 12/12/24 Time: 14:20 Anesthesiologist:: Scott Dominguez CRNA Complications:: None Pre-procedure Diagnosis:: Degenerative disc lumbar spine multilevels. Lumbar radiculopathy. Lumbar spondylosis. Multilevel lumbar facet arthropathy. Post-procedure Diagnosis:: Same. Indications for Procedure:: Patient is a pleasant 64-year-old male who comes our clinic today for ROUND ONE of left lumbar medial branch blocks/facet injections at the L4-5, L5-S1 level. Patient describes low lumbar back pain to the left that is constant, dull, aching. He reports having difficulty getting up out of a chair and/or off the floor when playing with the [employer]. He rates his pain 7/10. Procedure Details:: Informed consent was obtained and the risk and benefits of the procedure was explained to the patient. Patient was taken to the procedure room where noninvasive monitors were placed, including noninvasive blood pressure cuff as well as pulse oximeter. The area over the lumbar spine was cleansed using chlorhexidine as a cleansing solution. I anesthetized the skin and subcutaneous tissues with 1% Lidocaine. I placed 22-gauge spinal needles into the facet joint/ medial branches of the left L4-L5, and L5-S1. Needle placement was confirmed with fluoroscopy. After confirmation of needle placement, each site was injected with 1 mL of 1% lidocaine and 0.25 % Marcaine and 10 mg of Depo-Medrol. A total of 80 mg of depo medrol was used for bilateral medial branch blocks of the left L4-L5, and L5-S1. Patient tolerated the procedure without difficulty. There were no complications. Plan and Disposition:: Patient was discharged without incident.
[2024-12-12 14:38] VITALS: BP 149/74; PULSE 100; RESP 16; O2SAT 96
[2024-12-12] MEDS: BUPIVACAINE 0.25% 10ML INJ 25 MG IJ (14:43)
[2024-12-12] MEDS: LIDOCAINE 1% 5ML PF VIAL 5 ML (14:46)
[2024-12-12 14:52] VITALS: BP 121/78; PULSE 100; RESP 19; O2SAT 97
[2024-12-12 14:53] VITALS: BP 121/78; PULSE 100; RESP 18; O2SAT 97
== END 2024-12-12 14:38 | disposition home or self-care (01) ==
PROVIDERS: PCP Family Medicine; Visit Provider Nurse Anesthetist, Certified Registered
DX: M47.816 Spondylosis without myelopathy or radiculopathy, lumbar region (principal); M51.369 Other intervertebral disc degeneration, lumbar region without mention of lumbar back pain or lower extremity pain
CPT/HCPCS: 64493; 64494; J1010

== ENCOUNTER 2025-01-01 15:29 | Outpatient (POV) | payer MEDICARE, SELFPAY ==
--- NOTE | 2025-01-01 15:49 | A.OFFVIS_ITS ---
[facility] Disclaimer: The information contained in this section may have been updated after the patient was seen, as this information can be updated by other users. 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 Today he rates his pain a 10 out of 10. Patient states he really did not notice any additional improvement following this injection. Patient does state he is still having pain primarily on the left side of his low back and just seems to stay in this 1 location. He does state that he feels like the pain is worse when he is going from a seated to standing position and that on occasion it will radiate across to his low back but does not happen as frequently. Patient is using Aspercreme that does make improvements. He does state however that when it is bad that it does interfere with his ability perform ADLs such as cooking and cleaning. Patient is interested in any additional help we may be able to provide. Patient has continued conservative treatment. His Tony has been reviewed and is appropriate. Review of Systems: General: No recent weight changes, no fever, no sleep disturbances Respiratory: No cough, no shortness of air, no recurring pulmonary infections Cardiovascular/peripheral vascular: No chest pain, no palpitations, no edema, no shortness of breath Gastrointestinal: No new onset incontinence, normal bowel movements reported Genitourinary: No new onset incontinence Musculoskeletal: Left-sided low back pain Psychiatric: [Normal mood/affect] Neurological: [Denies weakness in extremities], [denies balance issues] Pain at rest (0-10 scale): 10 Objective Objective:: Physical Exam: General: Alert and oriented x3, no acute distress, pleasant and cooperative Lungs: Respirations even and unlabored, symmetrical chest expansion Eyes: PERRL Musculoskeletal: Flexion and extension of lumbar [spine] somewhat guarded secondary to pain, point tenderness along left lumbar paraspinous muscles Neurological: Speech clear, no gross sensory deficit Has patient had previous pain injection?: Yes Percent improvement in pain since last injection: Minimal Conservative treatment options previously tried: Home exercise plan Length of treatment: Longer than 12 weeks Meds Home Medications and Allergies Home Medications ?Medication ?Instructions ?Recorded ?Confirmed ?Type meloxicam 15 mg tablet 15 mg PO DAILY 03/11/22 01/01/25 History fluticasone propionate 50 1 spray intranasal DAILY #16 grams 08/31/22 01/01/25 Rx mcg/actuation nasal spray,suspension (Allergy Relief (fluticasone)) albuterol sulfate 90 mcg/actuation 2 puff inhalation Q4-6H PRN 11/30/22 01/01/25 Rx aerosol inhaler shortness of breath or wheezing #8.5 grams diazepam 5 mg tablet 5 mg PO DAILY PRN prior to 02/03/23 01/01/25 Rx procedure #1 tab blood sugar diagnostic (Accu-Chek #50 strips 02/17/23 01/01/25 Rx Jaz Plus test strips) ertugliflozin 15 mg tablet See Rx Instructions .Route 05/19/23 01/01/25 Rx (Steglatro) .COMPLEX #30 tabs pioglitazone 30 mg tablet 30 mg PO DAILY #90 tabs 07/08/23 01/01/25 Rx spironolactone 25 mg tablet 25 mg PO DAILY #90 tabs 07/27/23 01/01/25 Rx allopurinol 300 mg tablet See Rx Instructions .Route 08/16/23 01/01/25 Rx .COMPLEX #30 tabs metformin 1,000 mg tablet See Rx Instructions .Route 08/16/23 01/01/25 Rx .COMPLEX #60 tabs losartan 100 mg tablet See Rx Instructions .Route 04/24/24 01/01/25 Rx .COMPLEX #90 tabs simvastatin 20 mg tablet See Rx Instructions .Route 04/27/24 01/01/25 Rx .COMPLEX #30 tabs New Prescriptions to Start Prescriptions: Allergies Allergy/AdvReac Type Severity Reaction Status Date / Time No Known Allergies Allergy Verified 03/27/24 09:30 Assessment and Plan *Assessment and plan (1) Lumbar facet arthropathy: Status: Acute Category: Medical Code(s): M47.816 - Spondylosis without myelopathy or radiculopathy, lumbar region (2) Low back pain: Status: Acute Qualifiers: Back pain laterality: bilateral Chronicity: acute Sciatica presence: without sciatica Qualified Code(s): M54.50 - Low back pain, unspecified Category: Medical Code(s): M54.50 - Low back pain, unspecified (3) Myofascial pain on left side: Status: Acute Category: Medical Code(s): M79.18 - Myalgia, other site Plan Patient is experiencing worsening pain in his low back along the left side with tenderness in and around the lumbar paraspinous muscles. I did discuss with the patient that he may benefit from trigger point injections at this location along with a muscle relaxer of methocarbamol 750 mg 3 times daily as needed. I will send in a 2-week dose of the medication. We did discuss risk and benefits of the trigger point injections that he would like to proceed forward with this plan of care. Patient has tried and failed conservative measures such as oral medication, heat and ice, topicals, at home stretching exercise for longer than 12 weeks. Patient will be scheduled for trigger point injections of his left lumbar paraspinous muscles. These will be done without fluoroscopic or ultrasound guidance. Patient has been instructed to contact the clinic with any concerns before the next appointment. Dr. Hogue has reviewed this note and agrees with this plan of care. This note was dictated using voice recognition software and make contain errors or omissions. All injections are used with Lidocaine, Bupivacaine and dexamethasone. Occasionally urine drug screen is needed to verify patient's compliance with our office pain contract. This is ordered based off specific treatments related to chronic pain with the potential to abuse certain medications.
[2025-01-01 15:55] VITALS: BP 140/81; PULSE 89; RESP 14; O2SAT 97; BMI 38.8
== END 2025-01-01 23:59 | disposition home or self-care (01) ==
LOC: SC.PAIN 15:31
PROVIDERS: PCP Family Medicine; Visit Provider Nurse Practitioner Family
DX: M47.816 Spondylosis without myelopathy or radiculopathy, lumbar region (principal); M54.50 Low back pain, unspecified; M79.18 Myalgia, other site; Z73.89 Other problems related to life management difficulty
CPT/HCPCS: 99212; G0463

== ENCOUNTER 2025-01-17 14:55 | Day surgery (SDC) | payer MEDICARE, SELFPAY ==
[2025-01-17 15:20] VITALS: BP 112/64; PULSE 88; RESP 18; O2SAT 95; BMI 42.9
--- NOTE | 2025-01-17 15:21 | P.HP_ITS ---
History of Present Illness *Admission Date: 01/17/25 *Reason for visit:: Myofascial pain, trigger point injections *History of present illness: Same [facility] Disclaimer: The information contained in this section may have been updated after the patient was seen, as this information can be updated by other users. 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 DM type 2 (diabetes mellitus, type 2) Gout Morbid obesity Diastolic dysfunction Hyperlipemia Hypertension Olecranon bursitis of left elbow Surgical History History of tonsillectomy History of rotator cuff surgery Family History Other Heart attack Stroke Social History Smoking Status: Never smoker alcohol intake: never current occupational status: other Travel in the last 8 weeks?: None Other Medical History Have you received the Flu Vaccine for this season: Yes Have you received the Pneumonia Vaccine: No Review of Systems Review of Systems Review of systems:: pertinent systems reviewed and negative unless documented below Review of systems (narrative): Review of Systems: General: No recent weight changes, no fever, no sleep disturbances Respiratory: No cough, no shortness of air, no recurring pulmonary infections Cardiovascular/peripheral vascular: No chest pain, no palpitations, no edema, no shortness of breath Gastrointestinal: No new onset incontinence, normal bowel movements reported Genitourinary: No new onset incontinence Musculoskeletal: Chronic low back pain Psychiatric: [Normal mood/affect] Neurological: [Denies weakness in extremities], [denies balance issues] Meds Home Medications and Allergies Home Medications ?Medication ?Instructions ?Recorded ?Confirmed ?Type meloxicam 15 mg tablet 15 mg PO DAILY 03/11/22 01/01/25 History fluticasone propionate 50 1 spray intranasal DAILY #16 grams 08/31/22 01/01/25 Rx mcg/actuation nasal spray,suspension (Allergy Relief (fluticasone)) albuterol sulfate 90 mcg/actuation 2 puff inhalation Q4-6H PRN 11/30/22 01/01/25 Rx aerosol inhaler shortness of breath or wheezing #8.5 grams diazepam 5 mg tablet 5 mg PO DAILY PRN prior to 02/03/23 01/01/25 Rx procedure #1 tab blood sugar diagnostic (Accu-Chek #50 strips 02/17/23 01/01/25 Rx Jaz Plus test strips) ertugliflozin 15 mg tablet See Rx Instructions .Route 05/19/23 01/01/25 Rx (Steglatro) .COMPLEX #30 tabs pioglitazone 30 mg tablet 30 mg PO DAILY #90 tabs 07/08/23 01/01/25 Rx spironolactone 25 mg tablet 25 mg PO DAILY #90 tabs 07/27/23 01/01/25 Rx allopurinol 300 mg tablet See Rx Instructions .Route 08/16/23 01/01/25 Rx .COMPLEX #30 tabs metformin 1,000 mg tablet See Rx Instructions .Route 08/16/23 01/01/25 Rx .COMPLEX #60 tabs losartan 100 mg tablet See Rx Instructions .Route 04/24/24 01/01/25 Rx .COMPLEX #90 tabs simvastatin 20 mg tablet See Rx Instructions .Route 04/27/24 01/01/25 Rx .COMPLEX #30 tabs New Prescriptions to Start Prescriptions: Allergies Allergy/AdvReac Type Severity Reaction Status Date / Time No Known Allergies Allergy Verified 03/27/24 09:30 Exam Constitutional Constitutional: no acute distress *Routine HEENT Exam Head: Present normocephalic and atraumatic Eye: Present PERRL ENT: Present mucous membranes moist *Routine Neck Exam Neck: Present supple *Routine Respiratory Exam Respiratory: Present CTA bilaterally *Routine Cardiovascular Exam Cardiovascular: Present RRR *Routine Abdominal Exam Abdominal: Present soft *Routine Rectal Exam Rectal:: deferred *Routine Genitalia Exam Genitalia:: normal male Routine Back/Spine/Pelvis Exam Back/Spine: Present pain with flexion *Routine Skin Exam Skin: Present intact, dry and warm *Routine Neurological Exam Neurological: Present alert and oriented X3 Routine Psychiatric Exam Psychiatric: Present normal affect and normal thought process Assessment and Plan *Assessment and plan (1) Myofascial pain on left side: Status: Acute Category: Medical Code(s): M79.18 - Myalgia, other site Plan Patient has been instructed to contact the clinic with any concerns before the next appointment. Dr. Hogue has reviewed this note and agrees with this plan of care. This note was dictated using voice recognition software and make contain errors or omissions. All injections are used with Lidocaine, Bupivacaine and dexamethasone. Occasionally urine drug screen is needed to verify patient's compliance with our office pain contract. This is ordered based off specific treatments related to chronic pain with the potential to abuse certain medications.
--- NOTE | 2025-01-17 15:23 | EXP.PAIN.PRO ---
Procedure Date: 01/17/25 Time: 15:23 Anesthesiologist:: Kristin Low APRN Complications:: None Pre-procedure Diagnosis:: Myofascial pain left lumbar paraspinous, degenerative disc disease of lumbar spine, chronic pain syndrome Post-procedure Diagnosis:: Same Indications for Procedure:: Patient is a pleasant 64-year-old male who presents today for trigger point injections of his left lumbar paraspinous/latissimus muscles. He does state that he still wakes up with pretty significant pain is a 10 out of 10. He states it is not as severe currently. Patient does state that he still feels it all along his low back along the left side. Patient denies any new falls or injuries. Patient does state that the muscle relaxer I sent in of methocarbamol 750 mg 3 times a day did not seem to do much of anything. He denied any side effects. He does state that he has discontinued it since it made no change. His Tony has been reviewed and is appropriate. Physical Exam: General: Alert and oriented x3, no acute distress, pleasant and cooperative Lungs: Respirations even and unlabored, symmetrical chest expansion Eyes: PERRL Musculoskeletal: Flexion and extension of lumbar [spine] somewhat guarded secondary to pain, [antalgic gait noted] Neurological: Speech clear, no gross sensory deficit Procedure Details:: Patient did have noninvasive blood pressure cuff applied and pulse oximeter. Patient was placed in a sitting position and palpated along left lumbar paraspinous/latissimus muscles. Areas of point tenderness were marked and using a sterile 25-gauge needle approximately 10 mL of 0.25% bupivacaine, 1% lidocaine and 10 mg dexamethasone were incrementally injected into left lumbar paraspinous/latissimus muscles. Needle was removed and sterile bandages applied. Patient tolerated the procedure well with no complications and was discharged neurologically intact. Plan and Disposition:: Patient tolerated the procedure well with no complications and was discharged neurologically intact. I did discuss with the patient the possibility of trying diclofenac however after additional discussion it was made mention that he does see a night warehouse selector for a 1 year follow-up. Patient states he is unsure specifically what it was other than thinking that he had been told that they thought he had stage I heart failure. I have discussed with him that it is not recommended with a heart history to take NSAIDs on a regular basis. I will send in baclofen 10 mg 2 times daily as needed. He will return to clinic in 2 weeks for reevaluation of symptoms and plan of care. Patient has been instructed to contact the clinic with any concerns before the next appointment. Dr. Hogue has reviewed this note and agrees with this plan of care. This note was dictated using voice recognition software and make contain errors or omissions. All injections are used with Lidocaine, Bupivacaine and dexamethasone. Occasionally urine drug screen is needed to verify patient's compliance with our office pain contract. This is ordered based off specific treatments related to chronic pain with the potential to abuse certain medications.
[2025-01-17 15:28] VITALS: BP 130/70; PULSE 86; RESP 18; O2SAT 92
[2025-01-17] MEDS: BUPIVACAINE 0.25% 10ML INJ 25 MG IJ (15:45)
[2025-01-17] MEDS: LIDOCAINE 1% 5ML PF VIAL 5 ML (15:45)
[2025-01-17] MEDS: DEXAMETHASONE 10MG/ML 1ML VIAL 10 MG (15:45)
[2025-01-17 15:46] VITALS: BP 123/81; PULSE 88; RESP 18; O2SAT 97
== END 2025-01-17 15:49 | disposition home or self-care (01) ==
PROVIDERS: PCP Family Medicine; Visit Provider Nurse Practitioner Family
DX: M79.18 Myalgia, other site (principal); G89.4 Chronic pain syndrome; M51.369 Other intervertebral disc degeneration, lumbar region without mention of lumbar back pain or lower extremity pain
CPT/HCPCS: 20552; J1100

== ENCOUNTER 2025-02-05 14:04 | Outpatient (POV) | payer MEDICARE, SELFPAY ==
--- OUTSIDE RECORDS SUMMARY | 2024-04-26 11:00 | XMS_ITS ---
[facility] Organization [facility] [address] [place] [id number] Care Team Providers Care Community Health Consultant Name Role Phone Harshal Garcia Primary Care Provider Osman Aparicio Unavailable [phone] Allergies No Known Allergies Results Component Value [...] 1 capsule with food Orally every 12 hrs for 7 days 04/26/2024 Active CPAP machine and supplies - as directed as directed Active Multivitamin - 1 tab(s) orally once a day Active Fluticasone Propionate 50 MCG/ACT 1 spray(s) in each nostril once a day for 30 day(s) 06/18/2021 Active Allopurinol 300 MG 1 tab(s) orally once a day for 90 days Active metFORMIN HCl 1000 MG Take 1 Tablet by m outh twice daily. Orally Two times a day Active Losartan Potassium 100 MG 1 tab(s) orall y once a day Active Simvastatin 20 MG 1 tab(s) orally once a day (at bedtime) Active Tamsulosin HCl 0.4 MG 1 capsule Orally O nce a day for 30 day(s) 04/26/2024 Active Jardiance 25 MG 1 tablet Orally Once a day for 90 days 2024 Active Pioglitazone HCl 30 MG 1 tablet Orally O nce a day Active Problems Problem Type SNOMED Code ICD Code Onset Dates Problem Status W/U Status Risk Notes Problem [id number] Urinary hesitancy (R39.11) Active confirmed Vital Signs Blood pressure systolic 122 mm Hg 04/26/20 24 Blood pressure diastolic 78 mm Hg 024 Heart Rate 70 /min 04/26/2024 Height 65.5 in 04/26/2024 Weight 260 lbs 04/26/2024 BMI 42.60 kg/m2 04/26/2024 Encounters Encounter Location Date Provider Diagnosis [facility] [address] [facility] [address] [place] [id number] 04/26/2024 Harshal Garcia Urinary hesitancy R39.11 and [...] 1 capsule with food Orally every 12 hrs for 7 days 04/26/2024 Tamsulosin HCl 0.4 MG 1 capsule Orally O nce a day for 30 day(s) 04/26/2024 Treatment Notes Assessment Notes Pelvic pain Patient seems to hav e a UTI Next Appt Details Follow Up: as scheduled,and prn, Reason: Provider Name:Harshal Lee ry, 05/28/2025 09:15:00 AM, [address] [facility] [address] [facility], [address], [place], [id number], Progress Notes * BENJA SIMSOB:0 1960 (65 yo M)Acc No.[id number]:04/26/2024 Progress Notes Patient: BENJA UGALDE Provider: Franky Garcia M.D. :1960 A ge:64 Y S ex:Male Date:04/26/2024 Address:[address] [place] [address] Subjective: * Chief Complaints: * 1 . [...] Travel ouside [place]: no. * Medications: T akin CPAP machine and supplies - - as [...] G eneral Examination: General Appearance: N AD. Heart: R SR. Lungs: c lear to auscultation. Back: no CVA tenderness. Assessment: * Assessment: 1. [...] & Time - 04/26/2024)?Sensitive* Chayito Jones 04/28/2024 1:5 1:58 PM > no results on TENNolan,Nereyda 05/04/2024 [...] Procedure Codes: 8 1002 Urinalysis, no micro, 15316 SPECIMEN HANDLING * Follow Up: a s scheduled,and prn * Billing Information: * Visit Code: 71312 Office Visit, Est Pt., Level 3. * Procedure Codes: 61409 Urinalysis, no micro. 38064 SPECIMEN HANDLING. * Electronic signature of Peggy Garcia MD on 02/05/2025 at 02:07 PM EDT Sign off status: Pending * Provider: Franky Garcia M.D. Date: 04/26/2024 Generated for Candido ram/Katherine/Sitasmitting on: 02/05/2025 02:07 PM EDT History and Physical Notes * HPI (History [...]
--- OUTSIDE RECORDS SUMMARY | 2024-05-29 05:00 | XMS_ITS ---
Author Organization [facility] Address [address] [place] [id number] Care Team Providers Care Application Integrator Name Role Phone Harshal Garcia Primary Care Provider [phone] Osman Aparicio Unavailable [phone] Allergies No Known Allergies Results Component Value [...] 0.61 Performing Lab: Notes/Report: Test performed by [facility] [address] [place] [address] , [address], [place] [address] Damon Mireles MD, Typewriter Mechanic CLIA: [id number] Sodium 140 135-145 mmol/L Potassium 4.5 3.5-5.3 [...] 34 Performing Lab: Notes/Report: Test performed by [facility] [address] [place] [address] [address], [place] [address] Damon Mireles MD, Typewriter Mechanic CLIA: [id number] Cholesterol 141 <200 mg/dL Triglycerides 264 <150 [...] day Active Spironolactone 25 MG 1 tablet Orally for 30 day(s) Active CPAP machine and supplies - as directed as directed Active Tamsulosin HCl 0.4 MG 1 capsule Orally O nce a day for 30 day(s) 04/26/2024 Active Fluticasone Propionate 50 MCG/ACT 1 spray(s) in each nostril once a day for 30 day(s) 06/18/2021 Not-Taking Simvastatin 20 MG 1 tab(s) orally once a day (at bedtime) Active Jardiance 25 MG 1 tablet Orally Once a day for 90 days 2024 Active Allopurinol 300 MG [...] 05/29/2024 Encounters Encounter Location Date Provider Diagnosis [facility] [address] [facility] [address] [facility] [address] [place] [id number] 05/29/2024 Harshal Garcia Type 2 diabetes elvira [...] nce a day for 30 day(s) 04/26/2024 Next Appt Details Follow Up: 6 Months, Reason: Provider Name:Harshal Lee ry, 05/28/2025 09:15:00 AM, [address] [facility], [address], [place], [place], [id number], Progress Notes * BENJA SIMSOB:0 1960 (65 yo M)Acc No.[id number]:05/29/2024 Progress Notes Patient: BENJA UGALDE Provider: Franky Garcia M.D. :1960 A ge:64 Y S ex:Male Date:05/29/2024 Address:[address] [place], [place] [phone] Subjective: * Chief Complaints: * 1 . [...] Examination: E ndocrinology: General Appearance: N AD. Heart: R SR. Lungs: c lear to auscultation. Extremities: n o leg edema. G eneral Examination: [...] leah neg * G milana 2+ * JemAraceli 05/29/2024 10:06:0 7 AM > , Provider [...] G 2211 Complex e/[place], [address] GLUCOSE TEST, 22735 GLYCATED HEMOGLOBIN TEST, Modifiers: QW , 83574 Urinalysis, no micro, 20265 CBC WITH AUTO DIFF * Follow Up: 6 Months * Billing Information: * Visit Code: 55202 Office Visit, Est Pt., Level 4. * Procedure Codes: G2211 Complex e/[place]. [address] GLUCOSE TEST. 99680 GLYCATED HEMOGLOBIN TEST. Modifiers: QW 13384 Urinalysis, no micro. 34738 CBC WITH AUTO DIFF. * Electronic signature of Peggy Garcia MD on 02/05/2025 at 02:07 PM EDT Sign off status: Pending * Provider: Franky Garcia M.D. Date: 0 05/29/2024 Generated for Candido ram/Katherine/eTransmitting on: 0 02/05/2025 02:07 PM EDT History and Physical [...]
--- OUTSIDE RECORDS SUMMARY | 2024-11-24 05:00 | XMS_ITS ---
Author Organization [facility] Address [address] [facility] [address] [place] [phone] Care Team Providers Care Trade Embalmer Name Role Phone Harshal Garcia Primary Care Provider Osman Aparicio Unavailable [phone] Allergies No Known Allergies Results Component Value Reference Range Notes Glucose (In-House) Reviewed date:11/26/2024 11:48:02 AM Interpretation:130 Performing Lab: Notes/Report: 130 blood glucose 130 74 - 106 mg/dL P-Comprehensive Metabolic Pa jeanne (CMP) Reviewed date:11/26/2024 11:48:01 AM Interpretation:gluc 129, Cr 0.69 Performing Lab: Notes/Report: Test performed by [employer] [facility]0 [facility] , [address], [place] [address] Damon Mireles MD, Yeast Culture Developer CLIA: [id number] Sodium 141 135-145 mmol/L Potassium 4.8 3.5-5.3 [...] Interpretation:7.6 Performing Lab: Notes/Report: Test performed by [facility] [address] [place] [address] [place] [address] Damon Mireles MD, Yeast Culture Developer CLIA: [id number] Hemoglobin A1C 7.6 <5.7 % The following HbA1c ranges recommended by the [place] Diabetes Association (ADA) may be used as an aid in the diagnosis of diabetes mellitus. HbA1c Suggested Diagnosis >=6.5% Diabetic 5.7% - 6.4% Pre-Diabetic <5.7% Non-Diabetic P-Lipid Panel Reviewed date:11/26/2024 11:48:02 AM Interpretation:trigs 211, hdl 38 Performing Lab: Notes/Report: Test performed by [facility] [address] [place] [address] Herbert Covarrubias , [place] [address] Damon Mireles MD, Yeast Culture Developer CLIA: [id number] Cholesterol 140 <200 mg/dL Triglycerides 211 <150 [...] Interpretation:Normal Performing Lab: Notes/Report: Test performed by [facility] [address] [place], [place] [address] [place] , [address], [place] [address] Damon Mireles MD, Yeast Culture Developer CLIA: [id number] TSH reflex to FT4 1.04 0.43-5.25 mU/L P-Microalbumin/Creatinine, R andom Urine Sample Reviewed date:11/26/2024 11:48:02 AM Interpretation:a/c 41 Performing Lab: Notes/Report: Test performed by [facility] [address] [place] [address] , [address], [place] [address] Damon Mireles MD, Yeast Culture Developer CLIA: [id number] Albumin/Creatinine Ratio, Urine 41 0-30 ug/m g Microalbumin, Urine, Random 2.1 Creatinine, Urine 50.9 P-Uric Acid Reviewed date:11/26/2024 11:48:02 AM Interpretation:Normal Performing Lab: Notes/Report: Test performed by [facility] [address] [place] [address] [address], [place] [address] Damon Mireles MD, Yeast Culture Developer CLIA: [id number] Uric Acid 4.0 3.4-8.0 mg/dL Estimated Average Glucose Reviewed date:11/26/2024 11:48:02 AM Interpretation:171 Performing Lab: Notes/Report: Test performed by [facility] [address] [place] [address] Dr. [place] [id number] Damon Mireles MD, Yeast Culture Developer CLIA: [id number] Estimated Average Glucose (eAG) 171 Estimated Average [...] once a day for 90 days Active Pioglitazone HCl 30 MG 1 tablet Orally O nce a day for 90 days Active Jardiance 25 MG 1 tablet Orally Once a day for 30 days Active Simvastatin 20 MG 1 tab(s) orally once a day (at bedtime) for 90 days Active Losartan Potassium 100 MG 1 tab(s) orall y once a day for 90 days Active Spironolactone 25 MG 1 tablet Orally Onc e a day for 90 days Active Accu-Chek Softclix Lancets - USE TO TEST BLOOD SUGAR TWICE DAILY for 30 Active Accu-Chek Jaz Plus - Use to check bloo d sugar twice daily as directed. for 25 Active CPAP machine and supplies - as directed as directed Active Multivitamin - 1 tab(s) orally once a day Active metFORMIN HCl 1000 MG 1 tablet with a me al Orally Two times a day for 90 days Active Tamsulosin HCl 0.4 MG 1 capsule Orally O nce a day for 90 days 04/26/2024 Active Vital Signs Blood pressure systolic 130 mm Hg 11/25/19 25 Blood pressure diastolic 70 mm Hg 025 Heart Rate 82 /min 11/24/2024 Height 65.5 in 11/24/2024 Weight 265.6 lbs 11/24/2024 BMI 43.52 kg/m2 11/24/2024 Encounters Encounter Location Date Provider Diagnosis [facility] [address] [place] [id number] 11/24/2024 Harshal Garcia Type 2 diabetes elvira [...] [address], [address], [place], [place], [id number], Progress Notes * BENJA SIMS:0 1960 (65 yo M)Acc No.[id number]:11/24/2024 Progress Notes Patient: Vladimir BENJA VAN Provider: Franky Garcia M.D. :1960 A ge:64 Y S ex:Male Date:11/24/2024 Address:[address] [place] [address] Subjective: * Chief Complaints: * 1 . [...] to auscultation. Extremities: n o leg edema. Assessment: * Assessment: [...] 7.6 H <5.7 - % * TamConstanza 11/26/2024 11:47 :49 AM >See phone encounter ?LAB: P-TSH reflex to FT4 (Collection Date & Time - 11/24/2024 01:35 PM)? Normal* Value Reference Range T SH reflex to FT4 1.04 0.43-5.25 - mU/L * TamConstanza 11/26/2024 11:47 :49 AM >See phone encounter ?LAB: P-Microalbumin/Creatinine, Random Urine Sample (Collection Date & Time - 11/24/2024 01:35 PM)?a/c 41* Value Reference Range A lbumin/Creatinine Ratio, Urine 41 H 0-30 - ug /mg * C reatinine, Urine 50.9 - mg/dL * M icroalbumin, Urine, Random 2.1 - mg/dL * TamConstanza 11/26/2024 11:47 :49 AM >See phone encounter ?LAB: Glucose (In-House) (Collection Date & Time - 11/24/2024)?130* Value Reference Range b lood glucose 130 74 - 106 mg/dL * Arac[facility] Parish 11/24/2024 11:51:5 3 AM > TamConstanza 11/26/2024 11:47:49 AM >See phone encounter 2.?Essential [...] stimated Average Glucose 171 - mg/dL * [facility], IT support 11/25/2024 04:20:14 : This order was created by the Interface. Constanza Turcios 11/26/2024 11:47:49 AM >See phone encounter * Procedure Codes: G 2211 Complex e/[place], [address] GLUCOSE TEST, 3051F HG A1C>EQUAL 7.0%<8.0%, G8752 MOST RECENT SYSTOLIC BP < 140MM HG, G8754 MOST RECENT DIASTOLIC BP < 90MM HG * Follow Up: 6 Months * Billing Information: * Visit Code: 71915 Office Visit, Est Pt., Level 4. * Procedure Codes: G2211 Complex e/[place]. [address] GLUCOSE TEST. 3051F HG A1C>EQUAL 7.0%<8.0%. G8752 MOST RECENT SYSTOLIC BP < 140MM HG. G8754 MOST RECENT DIASTOLIC BP < 90MM HG. * Electronic signature of Peggy Garcia MD on 02/05/2025 at 02:07 PM EDT Sign off status: Pending * Provider: Franky Garcia M.D. Date: 0 11/24/2024 Generated for Candido ram/Katherine/Mitraitting on: 0 02/05/2025 02:07 PM EDT History [...]
--- OUTSIDE RECORDS SUMMARY | 2025-02-05 08:30 | XMS_ITS | Encounter Summary ---
Author Organization [place] [address] Care Team Providers Care Rn Radiation Name Role Phone Harshal Garcia MD Primary Care Provider [phone] Reason for Visit * Reason Comments Follow-up Encounter Details Date Type Department Care Team (Late st Contact Info) Description 02/05/2025 8:30 AM EDT Office Visit [facility] [place] [facility] [place] [address] [place] [address] Malachi Schafer MD [address] [place] [address] Diastolic dysfunction (Primary Dx); Mixed hyperlipidemia; Primary [...] file. Current Outpatient Medications: ACCU-CHEK SOFTCLIX LANCETS [facility], USE TO TEST BLOOD SUGAR TWICE DAILY, Disp: , Rfl: allopurinoL (ZYLOPRIM) 300 mg Oral Tablet, Take by mouth daily., Disp: , Rfl: BLOOD SUGAR DIAGNOSTIC [facility] [place], .COMPLEX, Disp: , Rfl: ertugliflozin (STEGLATRO) 15 mg Oral Tablet, Take 15 mg by mouth daily. (Patient not taking: Reported on 01/31/2024), Disp: , Rfl: fluticasone propionate (FLONASE) 50 mcg/actuation Nasl [place], Suspension, Daily, Disp: , Rfl: JARDIANCE 25 [...] , Rfl: oxymetazoline (AFRIN) 0.05 % Nasl [place], Non-Aerosol, 2 Sprays by Nasal route 2 [...] 45-50% with mild global hypokinesis Echo 07/21 ([facility]): TDS. EF 55%. Mild LVH. Grade I [...] - 02/05/2025 8:30 AM EDT Please call [phone] in May to schedule appointment between November [...] 01/17/2025 added in this encounter Care Teams Rn Radiation Relationship Specialty Start Date End Date Harshal Garcia MD [address] [place] [address] [place] [id number] PCP - General Family Medicine 08/05/18 documented as of this encounter
--- OUTSIDE RECORDS SUMMARY | 2025-02-05 14:07 | XMS_ITS | Clinical Summary ---
Author Organization [facility] Address One [facility] [address] [place], [place] [address] Phone Care Team Providers Care Bunk Assembler Name Role Phone Harshal Garcia MD Primary Care Provider [phone] Allergies No known active allergies Medications metFORMIN (GLUCOPHAGE) 1,000 mg Oral Tablet Take 1,000 mg by mouth 2 times daily (with meals). Active losartan (COZAAR) 100 mg Oral Tablet Take 100 mg by mouth daily. Active spironolactone (ALDACTONE) 25 mg Oral Tablet Take by mouth daily. Active allopurinoL (ZYLOPRIM) 300 mg Oral Tablet Take by mouth daily. Active pioglitazone (ACTOS) 30 mg Oral Tablet Take 30 mg by mouth daily. Active simvastatin (ZOCOR) 20 mg Oral Tablet Take by mouth nightly. Active multivitamin with folic acid (THERAGRAN) 400 mcg Oral Tablet Take by mouth daily. Active oxymetazoline (AFRIN) 0.05 % Nasl [place], Non-Aerosol 2 Sprays by Nasal route 2 times daily. Active [facility]LOOD [facility] 3 Active JARDIANCE 25 mg Oral Tablet Take 25 mg by mouth daily. 4 Active fluticasone propionate (FLONASE) 50 mcg/actuation Nasl [place], Suspension Daily 3 Active ACCU-CHEK SOFTCLIX LANCETS [facility] USE TO TEST BLOOD SUGAR TWICE DAILY 4 Active Melatonin 3 mg Oral Tablet Take 5 mg by mouth nightly. Active OZEMPIC 1 mg/dose (4 mg/3 mL) SubQ Pen Injector Inject 1 mg as directed once a week. 5 Active tamsulosin (FLOMAX) 0.4 mg Oral Capsule Take 0.4 mg by mouth daily. 5 Active ertugliflozin (STEGLATRO) 15 mg Oral Tablet Take 15 mg by mouth daily. 02/06/20 25 Discontinued (Patient Reported not taking medication) Active Problems Problem Noted Date Diagnosed Date Rotator cuff syndrome of left shoulder 8 Encounters Date Type Department Care Team Description 02/05/2025 8:30 AM EDT Office [place] [address] Malachi Schafer MD Diastolic dysfunction (Primary Dx); Mixed hyperlipidemia; Primary hypertension 01/31/2025 Travel from Last 3 Months Surgical History Surgery Date Site/Laterality Comments SHOULDER SURGERY Right Rotator cuff Surgery- long time ago Social History Tobacco Use Types Packs/Day Years Used Date Smoking Tobacco: Never Smokeless Tobacco: Never Tobacco Cessation:Counseling Given: Not Answered Sex and Gender Information Value Date Recorded Sex Assigned at Not on file Legal Sex Male 10:10 AM EDT Gender Identity Not on file Sexual Orientation Not on file Obstetrics History Last Filed Vital Signs Vital Sign Reading Time Taken Comments Blood Pressure 112/68 02/05/2025 8:35 AM EDT Pulse 88 02/05/2025 8:35 AM EDT Temperature - - Respiratory Rate - - Oxygen Saturation 93% 02/05/2025 8:35 AM EDT Inhaled Oxygen Concentration - - Weight 114.3 kg (252 lb) 02/05/2025 8:35 AM EDT Height 170.2 cm (5' 7 ) 01/31/2024 8:59 AM EDT Body Mass Index 39.47 01/31/2024 8:59 AM EDT Plan of Treatment Health Maintenance Due Date Last Done Comments Wellness Exam Medicare 1963 Hepatitis C Screening 1977 DTaP/TDaP/Td (1 - Tdap) 1978 Cologuard 01/29/2004 Colon Cancer Screening 01/29/2004 Colonoscopy 01/29/2004 FIT 01/29/2004 Sigmoidoscopy 01/29/2004 Virtual Colonography 01/29/2004 Pneumococcal Vaccine 50+ (1 of 1 - PCV) 2009 Zoster (1 of 2) 2009 RSV or 60+ (1 - Risk 60-74 years 1-dose series) 2019 COVID-19 Vaccine ( season) 2024 09/02/2021, 12/03/2020, 11/07/2020 Influenza Vaccine (Season Ended) 2025 06/29/2022, 06/18/2021, 06/14/2019, Additional history exists Hepatitis B Vaccine Aged Out No longe r eligible based on patient's age to complete this topic Meningococcal B Vaccine Aged Out No l onger eligible based on patient's age to complete this topic Insurance [employer] MED[employer] HMO MR [employer] MED[employer]ARE HMO MR Care Teams Bunk Assembler Relationship Specialty Start Date End Date Harshal Garcia MD [address] [place] [address] [place] [id number] PCP - General Family Medicine 08/05/18
--- OUTSIDE RECORDS SUMMARY | 2025-02-05 14:07 | XMS_ITS | Patient Health Record ---
Author Organization [facility] Address [address] [place] [id number] Care Team Providers Care German Professor Name Role Phone Jose Harshal Primary Care Provider Osman Aparicio Unavailable [phone] Allergies No Known Allergies Results Component Value Reference Range Notes Glucose (In-House) Reviewed date:11/26/2024 11:48:02 AM Interpretation:130 Performing Lab: Notes/Report: 130 blood glucose 130 74 - 106 mg/dL P-Comprehensive Metabolic Pa jeanne (CMP) Reviewed date:11/26/2024 11:48:01 AM Interpretation:gluc 129, Cr 0.69 Performing Lab: Notes/Report: Test performed by [facility] [address] [place] [address] , [address], [place] [address] Damon Mireles MD, Customs Compliance Manager CLIA: [id number] Sodium 141 135-145 mmol/L Potassium 4.8 3.5-5.3 [...] Interpretation:7.6 Performing Lab: Notes/Report: Test performed by [facility] [address] [place] [address] [place] [address] Damon Mireles MD, Customs Compliance Manager CLIA: [id number] Hemoglobin A1C 7.6 <5.7 % The following HbA1c ranges recommended by the [place] [employer] (ADA) may be used as an aid in the diagnosis of diabetes mellitus. HbA1c Suggested Diagnosis >=6.5% Diabetic 5.7% - 6.4% Pre-Diabetic <5.7% Non-Diabetic P-Lipid Panel Reviewed date:11/26/2024 11:48:02 AM Interpretation:trigs 211, hdl 38 Performing Lab: Notes/Report: Test performed by [facility] [address] [place] [address] [address] Covarrubias , [place] [address] Damon Mireles MD, Customs Compliance Manager CLIA: [id number] Cholesterol 140 <200 mg/dL Triglycerides 211 <150 [...] Interpretation:Normal Performing Lab: Notes/Report: Test performed by [facility] [address] [place], [place] [address] [place] , [place] [address] Damon Mireles MD, Customs Compliance Manager CLIA: [id number] TSH reflex to FT4 1.04 0.43-5.25 mU/L P-Microalbumin/Creatinine, R andom Urine Sample Reviewed date:11/26/2024 11:48:02 AM Interpretation:a/c 41 Performing Lab: Notes/Report: Test performed by [facility] [address] [place], [place] [address] [place] , [address], [place] [address] Damon Mireles MD, Customs Compliance Manager CLIA: [id number] Albumin/Creatinine Ratio, Urine 41 0-30 ug/mg Microalbumin, Urine, Random 2.1 Creatinine, Urine 50.9 P-Uric Acid Reviewed date:11/26/2024 11:48:02 AM Interpretation:Normal Performing Lab: Notes/Report: Test performed by [facility] [address] [place] [address] , [place] [address] Damon Mireles MD, Customs Compliance Manager CLIA: [id number] Uric Acid 4.0 3.4-8.0 mg/dL Urinalysis - Inhouse Reviewed date:04/26/2024 04:19:20 PM Interpretation: Performing Lab: Notes/Report: Color/Clarity yellow/clear Leuk neg Nitrite neg Urobili 3.2 Protein neg pH 5.5 Blood trace-intact Sp. Gr. 1.010 Ketone 1+ Bili neg Gluc 2+ TEN-UTI panel Reviewed date:05/04/2024 01:19:03 PM Interpretation:Sensitive Performing Lab: Notes/Report: Sensitive Estimated Average Glucose Reviewed date:11/26/2024 11:48:02 AM Interpretation:171 Performing Lab: Notes/Report: Test performed by [facility] [address] [place] [address] , [place] [address] Damon Mireles MD, Customs Compliance Manager CLIA: [id number] Estimated Average Glucose (eAG) 171 Estimated Average Glucose (eAG) is calculated using the equation eAG = (28.7 x HbA1c) - 46.7 based on the guidelines established by the ADA. If the patient has certain diseases including kidney disease, sickle cell anemia, thalassemia, or is taking medications such as dapsone, erythropoietin, or iron, eAG should not be evaluated. Urinalysis - Inhouse Reviewed date:05/29/2024 10:23:06 AM [...] 0.61 Performing Lab: Notes/Report: Test performed by [facility] [address] [place] [address] , [address], [place] [address] Damon Mireles MD, Customs Compliance Manager CLIA: [id number] Sodium 140 135-145 mmol/L Potassium 4.5 3.5-5.3 [...] 34 Performing Lab: Notes/Report: Test performed by [facility] [address] [place] [address] , [address], [place] [address] Damon Mireles MD, Customs Compliance Manager CLIA: [id number] Cholesterol 141 <200 mg/dL Triglycerides 264 <150 [...] Results: 54 Units: mg/dL % Change: -34% Medications Medication SIG (Take, Route, Frequency, Duration) Notes Start Date End Date Status Simvastatin 20 MG Take 1 Tablet by reshma th once daily at bedtime. for 90 Active metFORMIN HCl 1000 MG Take 1 Tablet by m outh twice daily with a meal. for 90 Active Allopurinol 300 MG 1 tab(s) orally once a day for 90 days Active Pioglitazone HCl 30 MG 1 tablet Orally O nce a day for 90 days Active CPAP machine and supplies - as directed as directed Active Multivitamin - 1 tab(s) orally once a day Active Jardiance 25 MG TAKE 1 TABLET BY RESHMA TH DAILY for 30 Active Tamsulosin HCl 0.4 MG Take 1 Capsule by mouth once daily. for 90 Active Ozempic (1 MG/DOSE) 4 MG/3ML 1 mg Subcutaneous once weekly 12/18/2024 Active Accu-Chek Softclix Lancets - USE TO TEST BLOOD SUGAR TWICE DAILY for 30 Active Losartan Potassium 100 MG Take 1 Tablet by mouth once daily. for 90 Active Spironolactone 25 MG Take 1 Tablet by mo uth once daily. for 90 Active Accu-Chek Jaz Plus - Use to check bloo d sugar twice daily as directed. for 25 Active Immunizations Vaccine Route Administration Date Status Comme nts COVID 19 Moderna Unknown 11/07/2020 Administered COVID 19 Moderna Unknown 12/03/2020 Administered COVID 19 Moderna Unknown 09/02/2021 Administered Fluzone High Dose (65yr and older) Unknown 05/29/2024 Pending Fluzone PF Quad (6-35 months) Unknown 06/29/2022 Administered Fluzone Quad (6months&older) IM Intramuscular 07/22/2016 Administered Fluzone Quad (6months&older) IM Intramuscular 07/21/2017 Administered Fluzone Quad (6months&older) IM Intramuscular 07/27/2018 Administered Fluzone Quad (6months&older) IM Intramuscular 06/14/2019 Administered Fluzone Quad (6months&older) Unknown 06/19/2020 Pending Fluzone Quad (6months&older) IM Intramuscular 06/18/2021 Administered Tetanus Tdap-Adacel (over 7yrs) IM Intramuscular 07/22/2016 Administered Problems Problem Type SNOMED Code ICD Code Onset Dates Problem Status W/U Status Risk Notes Problem 28704272 Essential hypert ension (I10) Active confirmed Problem 932080241 Morbid obesity (E66.01) Active confir med Problem 022570670 Pure hypercholesterolemia (E78.0) Active confirmed Problem 60647080 Lumbar degenerat isrrael disc disease (M51.36) Active confirmed Problem 1095551 Urinary hesitanc y (R39.11) Active confirmed Problem 03098511 Type 2 diabetes mellitus without complication (E11.9) Active confirmed Problem 51917901 Obstructive slee p apnea syndrome (G47.33) Active confirmed Problem 51215926 Gout, unspecifie d cause, unspecified chronicity, unspecified site (M10.9) Active confirmed Problem 43869187 Tinnitus of righ t ear (H93.11) Active confirmed Problem 106652767 Pure hypercholesterolemia (E78.00) Active confirmed Problem 519883544 Pure hypercholesterolemia, unspecified (E78.00) Active confirmed Problem 93852883 Hearing loss, unspecified hearing loss type, unspecified laterality (H91.90) Active confirmed Problem 04162012 Non-seasonal all ergic rhinitis, unspecified trigger (J30.89) Active confirmed Problem 490008665 Type 2 diabetes mellitus without complication, unspecified whether group home insulin use (E11.9) Active confirmed Vital Signs Heart Rate 82 /min 11/24/2024 Blood pressure diastolic 70 mm Hg 11/24/2024 Height 65.5 in 11/24/2024 Blood pressure systolic 130 mm Hg 11/24/2024 Weight 265.6 lbs 11/24/2024 BMI 43.52 kg/m2 11/24/2024 Encounters Encounter Location Date Provider Diagnosis [facility] [address] [place], [place] [id number] 04/26/2024 Harshal Lawton Urinary hesitancy R3 9.11 and Pelvic pain R10.2 [facility] [address] [place], [place] [id number] 05/29/2024 Harshal Lawton Type 2 diabetes elvira itus without complication E11.9 ; Essential hypertension I10 ; Pure hypercholesterolemia, unspecified E78.00 ; Left-sided low back pain without sciatica, unspecified chronicity M54.50 ; Recent urinary tract infection Z87.440 and Urinary hesitancy R39.11 [facility] [address] [place], [place] [id number] 11/24/2024 Harshal Lawton Type 2 diabetes elvira itus without complication E11.9 ; Essential hypertension I10 ; Pure hypercholesterolemia, unspecified E78.00 and Gout, unspecified cause, unspecified chronicity, unspecified site M10.9 [facility] [address] [place], [place] [id number] 05/30/2024 Harshal Lawton [facility] [address] [place], [place] [id number] 07/04/2024 Osman Aparicio Urinary hesitancy R3 9.11 [facility] [address] [place], [place] [id number] 07/25/2024 Harshal Lawton Pure hypercholestero lemia E78.00 and Essential hypertension I10 [facility] [address] [place], [place] [id number] 09/29/2024 Harshal Lawton Type 2 diabetes elvira itus without complication, unspecified whether group home insulin use E11.9 [facility] [address] [place], [place] [id number] 11/26/2024 Harshal Lawton [facility] [address] [place], [place] [id number] 12/18/2024 Harshal Lawton Type 2 diabetes elvira itus without complication E11.9 Assessments Encounter Date Diagnosis (ICD Code) Assessment Notes Treatment Notes Treatment Clinical Notes Section Notes 04/26/2024 Urinary hesitancy (ICD-10 - R39.11) 04/26/2024 Pelvic pain (ICD-10 - R10.2) Patient seems to have a UTI 05/29/2024 Essential hypertensi on (ICD-10 - I10) 05/29/2024 Type 2 diabetes elvira itus without complication (ICD-10 - E11.9) 07/25/2024 Pure hypercholesterolemia (ICD-10 - E78.00) 09/29/2024 Type 2 diabetes elvira itus without complication, unspecified whether manager intermediate insulin use (ICD-10 - E11.9) 07/04/2024 Urinary hesitancy (ICD-10 - R39.11) 11/24/2024 Essential hypertensi on (ICD-10 - I10) 11/24/2024 Type 2 diabetes elvira itus without complication (ICD-10 - E11.9) 12/18/2024 Type 2 diabetes elvira itus without complication (ICD-10 - E11.9) 11/24/2024 Pure hypercholesterolemia, unspecified (ICD-10 - E78.00) 07/25/2024 Essential hypertensi on (ICD-10 - I10) 05/29/2024 Pure hypercholesterolemia, unspecified (ICD-10 - E78.00) 05/29/2024 Left-sided low back pain without sciatica, unspecified chronicity (ICD-10 - M54.50) 11/24/2024 Gout, unspecified ca use, unspecified chronicity, unspecified site (ICD-10 - M10.9) 05/29/2024 Recent urinary tract infection (ICD-10 - Z87.440) 05/29/2024 Urinary hesitancy (ICD-10 - R39.11) Plan Of Treatment Next Appt Details Provider Name:Harshal Lee , 05/28/2025 09:15:00 AM, [address] [facility] [address] [facility], [address], [place], [place], [id number], Insurance Providers Payer Name Payer Address Payer Phone Subscriber Number Group Number Insured Name Patient Relationship to Insured Coverage Start Date Coverage End Date [facility] [employer] [facility] [address] [address] [place], [place] [phone] [id number] BENJA GARCÍA Self - patient is the insured Medications Administered Medication Instructions Date of Administration Dosage Notes Depo- Medrol 40 mg/ml 06/10/2009 1.5 mL Dexamethasone 01/31/2007 1 mL Dexamethasone 08/17/2008 1.0 mL Dexamethasone 08/12/2009 Dexamethasone 08/15/2012 1.0 Dexamethasone 09/30/2012 1.0 mL Dexamethasone 10/29/2014 1 mL Dexamethasone 11/06/2016 1 mL Dexamethasone 01/21/2018 1 mL Medical (General) History Medical History History ICD Code Hyperlipidemia Hypertension Diabetes Mellitus 2 Sleep Apnea Gout Allergic Rhinitis RT Rotator Cuff Tear x 2 Lumbar Disc Disease Lumbar facet arthropathy Chronic Back Pain Surgical History Surgery Date(Month/Year) RT Rotator Cuff Tear x 2 Hospitalization History Reason Date(Month/Year) Pneumonia
--- OUTSIDE RECORDS SUMMARY | 2025-02-05 14:08 | XMS_ITS | Encounter Summary ---
Author Organization [facility] [place] [address] Care Team Providers Care Investment Sales Assistant Name Role Phone Harshal Garcia MD Primary Care Provider [phone] Encounter Details Date Type Department Care Team (Latest Contact Info) Description 01/31/2025 Travel Social History Tobacco Use Types Packs/Day Years Used Date Smoking Tobacco: Never Smokeless Tobacco: Never Sex and Gender Information Value Date Recorded Sex Assigned at Not on file Legal Sex Male 10:10 AM EDT Gender Identity Not on file Sexual Orientation Not on file documented as of this encounter Plan of Treatment Not on file documented as of this encounter Visit Diagnoses Not on filedocumented in this encounter Care Teams Investment Sales Assistant Relationship Specialty Start Date End Date Harshal Garcia MD [address] [place] [address] [place] [phone] PCP - General Family Medicine 08/05/18 documented as of this encounter
--- NOTE | 2025-02-05 14:23 | A.OFFVIS_ITS ---
[facility] Disclaimer: The information contained in this section may have been updated after the patient was seen, as this information can be updated by other users. Medical History (Updated 02/05/25 @ 16:15 by Kristin Low APRN) Negative colorectal cancer screening using DNA-based stool test Vitamin D deficiency Degeneration of intervertebral disc of lumbar region with osteophyte of lumbar vertebra DM type 2 (diabetes mellitus, type 2) Gout Morbid obesity Diastolic dysfunction Hyperlipemia Hypertension Olecranon bursitis of left elbow Surgical History History of tonsillectomy History of rotator cuff surgery Family History Other Heart attack Stroke Social History (Updated 01/17/25 @ 15:24 by Poppy Tapia RN) Smoking Status: Never smoker alcohol intake: never current occupational status: other Travel in the last 8 weeks?: None PM Subjective & Objective Subjective Subjective:: Patient is a pleasant 65-year-old male who presents today for follow-up of trigger point injections of his left lumbar paraspinous/latissimus muscles on 01/17/2025. Today he rates his pain a 3 out of 10 but does state the pain will go to a 5 or more with increased movement. Patient denies any new trauma or injury. He does state that he felt like these injections really did help while it was nice and numb however immediately started going back towards his baseline after. Patient was sent in baclofen 10 mg twice a day at our last visit. He states that this did not seem to make much difference. Patient does state he is still having the low back pain that will radiate across his low back and does have pain into his knees bilaterally. Patient states the pain is worse with increased activity or trying to ambulate or get up. Patient does state that he is interested in additional injection therapy. Patient was tried on lumbar facet injections previously however did not notice any improvement even while the numbing medication had been injected. Patient has tried conservative therapy with no additional changes. His Tony has been reviewed and is appropriate. Patient did just have a follow-up with cardiology and is good for 1 year. Review of Systems: General: No recent weight changes, no fever, no sleep disturbances Respiratory: No cough, no shortness of air, no recurring pulmonary infections Cardiovascular/peripheral vascular: No chest pain, no palpitations, no edema, no shortness of breath Gastrointestinal: No new onset incontinence, normal bowel movements reported Genitourinary: No new onset incontinence Musculoskeletal: Low back pain, bilateral knee pain, leg pain Psychiatric: [Normal mood/affect] Neurological: [Denies weakness in extremities], [denies balance issues] Pain at rest (0-10 scale): 5 Objective Objective:: Physical Exam: General: Alert and oriented x3, no acute distress, pleasant and cooperative Lungs: Respirations even and unlabored, symmetrical chest expansion Eyes: PERRL Musculoskeletal: Flexion and extension of lumbar [spine] somewhat guarded secondary to pain, positive leg raise Neurological: Speech clear, no gross sensory deficit Has patient had previous pain injection?: Yes Percent improvement in pain since last injection: Than 50% however only while numb Conservative treatment options previously tried: Home exercise plan Length of treatment: Longer than 12 weeks Meds Home Medications and Allergies Home Medications ?Medication ?Instructions ?Recorded ?Confirmed ?Type meloxicam 15 mg tablet 15 mg PO DAILY 03/11/2205/24 History fluticasone propionate 50 1 spray intranasal DAILY #16 grams 08/31/22 02/05/25 Rx mcg/actuation nasal spray,suspension (Allergy Relief (fluticasone)) albuterol sulfate 90 mcg/actuation 2 puff inhalation Q 4-6H PRN 11/30/22 02/05/25 Rx aerosol inhaler shortness of breath or wheez ing #8.5 grams diazepam 5 mg tablet 5 mg PO DAILY PRN prior to 0 02/03/23 02/05/25 Rx procedure #1 tab blood sugar diagnostic (Accu-Chek #50 strips 02/17/23 02/05/25 Rx Jaz Plus test strips) ertugliflozin 15 mg tablet See Rx Instructions .Route 05/19/23 02/05/25 Rx (Steglatro) .COMPLEX #30 tabs pioglitazone 30 mg tablet 30 mg PO DAILY #90 tabs 05/2202/05/25 Rx spironolactone 25 mg tablet 25 mg PO DAILY #90 tabs 02/05/25 Rx allopurinol 300 mg tablet See Rx Instructions .Route 1 10/17/22 02/05/25 Rx .COMPLEX #30 tabs metformin 1,000 mg tablet See Rx Instructions .Route 1 10/17/22 02/05/25 Rx .COMPLEX #60 tabs losartan 100 mg tablet See Rx Instructions .Route 0 04/24/24 02/05/25 Rx .COMPLEX #90 tabs simvastatin 20 mg tablet See Rx Instructions .Route 0 04/27/24 02/05/25 Rx .COMPLEX #30 tabs baclofen 10 mg tablet 10 mg PO BID #28 tabs 02/05/25 Rx New Prescriptions to Start Prescriptions: Allergies Allergy/AdvReac Type Severity Reaction Status Date / Time No Known Allergies Allergy Verified 03/27/24 09:30 Assessment and Plan *Assessment and plan (1) Low back pain: Status: Acute Qualifiers: Chronicity: acute Back pain laterality: bilateral Sciatica presence: without sciatica Qualified Code(s): M54.50 - Low back pain, unspecified Category: Medical Code(s): M54.50 - Low back pain, unspecified (2) Degenerative disc disease, lumbar: Status: Acute Category: Medical Code(s): M51.369 - Other intervertebral disc degeneration, lumbar region without mention of lumbar back pain or lower extremity pain (3) Lumbar radiculopathy: Status: Acute Category: Medical Code(s): M54.16 - Radiculopathy, lumbar region Plan Patient is experiencing worsening pain in his low back with numbness and tingling into his lower extremities. Patient did have limited range of motion of his lumbar spine with a positive leg raise. I did discuss with patient that I do believe they would benefit from a lumbar epidural steroid injection. Risk and benefits were discussed with patient and the patient would like to proceed forward with this plan of care. Patient is not on any blood thinners. Patient has tried and failed conservative therapy including oral medications, heat and ice, topicals and continued at home stretching exercise for longer than 12 weeks between injections. Patient has had chronic back pain for longer than 6 mo nths. Patient has not had any lumbar epidurals in the past. We will schedule the patient for an LESI L4-L5 under fluoroscopy. Patient has been instructed to contact the clinic with any concerns before the next appointment. Dr. Hogue has reviewed this note and agrees with this plan of care. This note was dictated using voice recognition software and make contain errors or omissions. All injections are used with Lidocaine, Bupivacaine and dexamethasone. Occasionally urine drug screen is needed to verify patient's compliance with our office pain contract. This is ordered based off specific treatments related to chronic pain with the potential to abuse certain medications.
[2025-02-05 14:48] VITALS: BP 129/70; PULSE 89; RESP 18; O2SAT 96; BMI 39.7
== END 2025-02-05 23:59 | disposition home or self-care (01) ==
LOC: SC.PAIN 14:05
PROVIDERS: PCP Family Medicine; Visit Provider Nurse Practitioner Family
DX: M51.16 Intervertebral disc disorders with radiculopathy, lumbar region (principal)
CPT/HCPCS: 99212; G0463

== ENCOUNTER 2025-02-26 11:32 | Outpatient (CLI) | payer MEDICARE, SELFPAY ==
--- OUTSIDE RECORDS SUMMARY | 2024-05-29 05:00 | XMS_ITS ---
Author Organization [facility] Address [address] [place] [id number] Care Team Providers Care Thread Twister Name Role Phone Harshal Garcia Primary Care Provider Osman Aparicio Unavailable [phone] Allergies No Known Allergies Results Component Value [...] 0.61 Performing Lab: Notes/Report: Test performed by [facility] [address] [place] [address] , [address], [place] [address] Damon Mireles MD, Grinder [employer] Plant CLIA: [id number] Sodium 140 135-145 mmol/L Potassium 4.5 3.5-5.3 [...] 34 Performing Lab: Notes/Report: Test performed by [facility] [address] [place] [address] [address], [place] [address] Damon Mireles MD, Grinder [employer] CLIA: [id number] Cholesterol 141 <200 mg/dL Triglycerides 264 <150 [...] Provider Diagnosis [facility] [address] [phone] 05/29/2024 Harshal Garcia Type 2 diabetes elvira [...] [address], [address], [place], [place], [id number], Progress Notes * BENJA SIMSOB:0 1960 (65 yo M)Acc No.[id number]:05/29/2024 Progress Notes Patient: BENJA UGALDE Provider: Franky Garcia M.D. :1960 A ge:64 Y S ex:Male Date:05/29/2024 Address:[address] [place] [address] Subjective: * Chief Complaints: * 1 . [...] latlet 193 100 - 400 * Araceli Pairsh 05/29/2024 10:08:1 4 AM > , Provider [...] G 2211 Complex e/[place], [address] GLUCOSE TEST, 56857 GLYCATED HEMOGLOBIN TEST, Modifiers: QW , 66737 Urinalysis, no micro, 98573 CBC WITH AUTO DIFF * Follow Up: 6 Months * Images: Billing Information: * Visit Code: 78294 Office Visit, Est Pt., Level 4. * Procedure Codes: G2211 Complex e/[place]. [address] GLUCOSE TEST. 76549 GLYCATED HEMOGLOBIN TEST. Modifiers: QW 41819 Urinalysis, no micro. 45649 CBC WITH AUTO DIFF. * Electronic signature of Peggy Garcia MD on 02/26/2025 at 11:37 AM EDT Sign off status: Pending * Provider: Franky Garcia M.D. Date: 0 05/29/2024 Generated for Candido ram/Katherine/eTransmitting on: 0 02/26/2025 11:37 AM EDT History and Physical Notes * [...]
--- OUTSIDE RECORDS SUMMARY | 2024-11-24 05:00 | XMS_ITS ---
[facility] Address [address] [facility] [address] [place] [id number] Care Team Providers Care Neon Sign Installer Name Role Phone Harshal Garcia Primary Care Provider Osman Aparicio Unavailable [phone] Allergies No Known Allergies Results Component Value Reference Range Notes Glucose (In-House) Reviewed date:11/26/2024 11:48:02 AM Interpretation:130 Performing Lab: Notes/Report: 130 blood glucose 130 74 - 106 mg/dL P-Comprehensive Metabolic Pa jeanne (CMP) Reviewed date:11/26/2024 11:48:01 AM Interpretation:gluc 129, Cr 0.69 Performing Lab: Notes/Report: Test performed by [facility] [facility]ly [facility] , [address], [place] [address] Damon Mireles MD, Classics Teacher CLIA: [id number] Sodium 141 135-145 mmol/L Potassium 4.8 3.5-5.3 [...] Interpretation:7.6 Performing Lab: Notes/Report: Test performed by [employer] [address] [place] [address] [place] [address] Damon Mireles MD, Classics Teacher CLIA: [id number] Hemoglobin A1C 7.6 <5.7 % The following HbA1c ranges recommended by the [place] [employer] (ADA) may be used as an aid in the diagnosis of diabetes mellitus. HbA1c Suggested Diagnosis >=6.5% Diabetic 5.7% - 6.4% Pre-Diabetic <5.7% Non-Diabetic P-Lipid Panel Reviewed date:11/26/2024 11:48:02 AM Interpretation:trigs 211, hdl 38 Performing Lab: Notes/Report: Test performed by [facility] [address] [place] [address] [address] , [place] [address] Damon Mireles MD, Classics Teacher CLIA: [id number] Cholesterol 140 <200 mg/dL Triglycerides 211 <150 [...] Interpretation:Normal Performing Lab: Notes/Report: Test performed by [facility] [address] [place], [place] [address] [place] , [address], [place] [address] Damon Mireles MD, Classics Teacher CLIA: [id number] TSH reflex to FT4 1.04 0.43-5.25 mU/L P-Microalbumin/Creatinine, R andom Urine Sample Reviewed date:11/26/2024 11:48:02 AM Interpretation:a/c 41 Performing Lab: Notes/Report: Test performed by [facility] [address] [place] [address] , [address], [place] [address] Damon Mireles MD, Classics Teacher CLIA: [id number] Albumin/Creatinine Ratio, Urine 41 0-30 ug/m g Microalbumin, Urine, Random 2.1 Creatinine, Urine 50.9 P-Uric Acid Reviewed date:11/26/2024 11:48:02 AM Interpretation:Normal Performing Lab: Notes/Report: Test performed by [employer] [address] [place] [address] [address], [place] [address] Damon Mireles MD, Classics Teacher CLIA: [id number] Uric Acid 4.0 3.4-8.0 mg/dL Estimated Average Glucose Reviewed date:11/26/2024 11:48:02 AM Interpretation:171 Performing Lab: Notes/Report: Test performed by [facility] [address] [place] [address] Dr. [place] [id number] Damon Mireles MD, Classics Teacher CLIA: [id number] Estimated Average Glucose (eAG) 171 Estimated Average [...] Encounter Location Date Provider Diagnosis [facility]IVASA[facility]Kat[facility] [address] [facility] [address] [facility] [address] [place] [id number] 11/24/2024 Harshal Garcia Type 2 diabetes elvira [...] Lee ry, 05/28/2025 09:15:00 AM, [address] [facility] [address] [facility], [address], [place], [id number], Progress Notes * BENJA SIMSOB:0 1960 (65 yo M)Acc No.[id number]:11/24/2024 Progress Notes Patient: Vladimir BENJA VAN Provider: Franky Garcia M.D. :1960 A ge:64 Y S ex:Male Date:11/24/2024 Address:[address] [place] [address] Subjective: * Chief Complaints: * 1 . [...] stimated Average Glucose 171 - mg/dL * [facility], IT support 11/25/2024 04:20:14 : This order was created by the Interface. Constanza Turcios 11/26/2024 11:47:49 AM >See phone encounter * Procedure Codes: G 2211 Complex e/[place], [address] GLUCOSE TEST, 3051F HG A1C>EQUAL 7.0%<8.0%, G8752 MOST RECENT SYSTOLIC BP < 140MM HG, G8754 MOST RECENT DIASTOLIC BP < 90MM HG * Follow Up: 6 Months * Images: Billing Information: * Visit Code: 35191 Office Visit, Est Pt., Level 4. * Procedure Codes: G2211 Complex e/[place]. [address] GLUCOSE TEST. 3051F HG A1C>EQUAL 7.0%<8.0%. G8752 MOST RECENT SYSTOLIC BP < 140MM HG. G8754 MOST RECENT DIASTOLIC BP < 90MM HG. * Electronic signature of Peggy Garcia MD on 02/26/2025 at 11:38 AM EDT Sign off status: Pending * Provider: Franky Garcia M.D. Date: 0 11/24/2024 Generated for Candido ram/Katherine/eTransmitting on: 0 02/26/2025 11:38 AM EDT History and Physical Notes * [...]
--- OUTSIDE RECORDS SUMMARY | 2025-02-05 08:30 | XMS_ITS | Encounter Summary ---
Author Organization [place] [address] Care Team Providers Care Concreter Name Role Phone Harshal Garcia MD Primary Care Provider [phone] Reason for Visit * Reason Comments Follow-up Encounter Details Date Type Department Care Team (Late st Contact Info) Description 02/05/2025 8:30 AM EDT Office Visit [facility] [place] [facility] [place] [address] [place] [address] Malachi Schafer MD [address] [place] [address] Diastolic dysfunction (Primary Dx); Mixed hyperlipidemia; Primary hypertension Social History Tobacco Use Types Packs/Day Years Used Date Smoking Tobacco: Never Smokeless Tobacco: Never Tobacco Cessation:Counseling Given: Not Answered Sex and Gender Information Value Date Recorded Sex Assigned at Not on file Legal Sex Male 10:10 AM EDT Gender Identity Not on file Sexual Orientation Not on file documented as of this encounter Last Filed Vital Signs Vital Sign Reading Time Taken Comments Blood Pressure 112/68 02/05/2025 8:35 AM EDT Pulse 88 02/05/2025 8:35 AM EDT Temperature - - Respiratory Rate - - Oxygen Saturation 93% 02/05/2025 8:35 AM EDT Inhaled Oxygen Concentration - - Weight 114.3 kg (252 lb) 02/05/2025 8:35 AM EDT Height - - Body Mass Index 39.47 01/31/2024 8:59 AM EDT documented in this encounter Progress Notes * Malachi Schafer MD - 02/05/2025 8:30 AM EDT Cardiology Consultation Name: Wiliam Burnham : 1960 Referring Physician Harshal Garcia MD Reason for consult SOB, Diastolic Dysfunction HPI 65 y.o. male seen for follow up regarding chronic sob and diastolic dysfunctoin. He admits he has remained very sedentary but recently started Ozempic and has lost a few pounds. No change in chronic sob. Blood pressure has been controlled. No chest pain, anginal type symptoms or palpitations. Compliant with CPAP. ROS Denies: Change in vision, headache, fever, chills, nausea, vomiting, anorexia, diarrhea, change in bowel or bladder habits. No palpitations, lightheadedness, dizziness, syncope, or near syncope. No extreme fatigue, daytime solomence or change in energy level. No significant depression or anhedonia. No past medical history on file. No past surgical history on file. Current Outpatient Medications: ACCU-CHEK SOFTCLIX LANCETS [facility], USE TO TEST BLOOD SUGAR TWICE DAILY, Disp: , Rfl: allopurinoL (ZYLOPRIM) 300 mg Oral Tablet, Take by mouth daily., Disp: , Rfl: BLOOD SUGAR DIAGNOSTIC [facility] [place], .COMPLEX, Disp: , Rfl: ertugliflozin (STEGLATRO) 15 mg Oral Tablet, Take 15 mg by mouth daily. (Patient not taking: Reported on 01/31/2024), Disp: , Rfl: fluticasone propionate (FLONASE) 50 mcg/actuation Nasl [place], Suspension, Daily, Disp: , Rfl: JARDIANCE 25 mg Oral Tablet, Take 25 mg by mouth daily., Disp: , Rfl: losartan (COZAAR) 100 mg Oral Tablet, Take 100 mg by mouth daily., Disp: , Rfl: Melatonin 3 mg Oral Tablet, Take 5 mg by mouth nightly., Disp: , Rfl: metFORMIN (GLUCOPHAGE) 1,000 mg Oral Tablet, Take 1,000 mg by mouth 2 times daily (with meals)., Disp: , Rfl: multivitamin with folic acid (THERAGRAN) 400 mcg Oral Tablet, Take by mouth daily., Disp: , Rfl: oxymetazoline (AFRIN) 0.05 % Nasl [place], Non-Aerosol, 2 Sprays by Nasal route 2 times daily., Disp:, Rfl: pioglitazone (ACTOS) 30 mg Oral Tablet, Take 30 mg by mouth daily., Disp: , Rfl: simvastatin (ZOCOR) 20 mg Oral Tablet, Take by mouth nightly., Disp: , Rfl: spironolactone (ALDACTONE) 25 mg Oral Tablet, Take by mouth daily., Disp: , Rfl: Social History Socioeconomic History Marital status: Spouse name: Not on file Number of children: Not on file Years of education: Not on file Highest education level: Not on file Occupational History Not on file Tobacco Use Smoking status: Never Smokeless tobacco: Never Substance and Sexual Activity Alcohol use: Not on file Drug use: Not on file Sexual activity: Not on file Other Topics Concern Not on file Social History Narrative Not on file Social Drivers of Health Financial Resource Strain: Not on file Food Insecurity: Not on file Transportation Needs: Not on file Physical Activity: Not on file Stress: Not on file Social Connections: Not on file Intimate Partner Violence: Not on file Housing Stability: Not on file No Known Allergies No family history on file. Objective There were no vitals filed for this visit. Exam: GENERAL APPEARANCE: In no acute distress HEENT: Normocephalic, Atraumatic, Sclera anicteric, Pupils equal, round, and reactive. NECK: No JVD, No Bruit. Carotid upstrokes are full. RESPIRATORY: Normal breath sounds bilaterally. No rales or wheezing HEART: Normal S1, S2- No S3, S4. No Murmur VASCULAR: Normal pulses, equal bilaterally. ABDOMEN: Soft, nontender, no organomegaly, no distension. Bowel sounds are normoactive. EXTREMITIES: No edema Calves are soft. Good capillary refill. Cardiac Testing: Cardiac Cath 01/03: no significant CAD. EF 45-50% with mild global hypokinesis Echo 07/21 ([facility]): TDS. EF 55%. Mild LVH. Grade I Diastolic dysfunction. Mild RVD. Mild YAMILE. Stress Echo 04/21: 6.[address] changes. No echocardiographic evidence of ischemia. EF 55-60%. Outside Labs 11/20: LDL - 83, HDL - 36, Trig - 325, Non HDL - 148 Assessment Diastolic Dysfunction - Grade 1 H/o Syncope - mediated by coughing - quiet Hypertension - controlled Type 2 Diabetes Obesity - no on Ozempic Hyperlipemia - stable on Simvastatin - labs thru Primary AAYUSH - now using CPAP Plan Continue Simvastatin, Losartan and Spironolactone Encouraged dietary discretion and more exercise Labs thru Primary Echo on f/u RTC 12 months P. Gavino Schafer MD documented in this encounter Miscellaneous Notes * Patient Instructions - Keith Mancia MA - 02/05/2025 8:30 AM EDT Please call [phone] in May to schedule appointment between November and January of 2026. documented in this encounter Plan of Treatment Not on file documented as of this encounter Visit Diagnoses Diagnosis Diastolic dysfunction- Primary Heart disease, unspecified Mixed hyperlipidemia Primary hypertension Unspecified essential hypertension documented in this encounter Discontinued Medications Medication Sig Discontinue Reason Start Date End Da te ertugliflozin (STEGLATRO) 15 mg Oral Tablet Take 15 mg by mouth daily. Patient Reported not taking medication 02/05/2025 documented as of this encounter Historical Medications * This list may reflect changes made after this encounter. tamsulosin (FLOMAX) 0.4 mg Oral Capsule Take 0.4 mg by mouth daily. 12/25/2024 OZEMPIC 1 mg/dose (4 mg/3 mL) SubQ Pen Injector Inject 1 mg as directed once a week. 01/17/2025 added in this encounter Care Teams Concreter Relationship Specialty Start Date End Date Harshal Garcia MD [address] [place] [address] [place] [id number] PCP - General Family Medicine 08/05/18 documented as of this encounter
--- NOTE | 2025-02-26 11:35 | XR_ITS ---
FINAL REPORT TECHNIQUE: 3 views CLINICAL HISTORY: PAIN UPPER BACK COMPARISON: None FINDINGS: THORACIC SPINE: AP, lateral, and swimmer's views of the thoracic spine were obtained. There is no prior exam for comparison. There is no acute fracture. There is 10 degrees of dextroscoliosis present. Mild multilevel anterior osteophytes are present. Vertebral body height is preserved. Paraspinal soft tissues are within normal limits. IMPRESSION: Mild degenerative change, with no acute process. Reviewed, Interpreted and Dictated by Yonis Coleman MD Transcribed by Natali Castillo Authenticated and . [facility]
--- OUTSIDE RECORDS SUMMARY | 2025-02-26 11:38 | XMS_ITS | Patient Health Record ---
Author Organization [facility] Address [address] [place] [phone] Care Team Providers Care Bus Company Manager Name Role Phone Harshal Garcia Primary Care Provider Osman Aparicio Unavailable [phone] Allergies No Known Allergies Results Component Value Reference Range Notes TEN-UTI panel Reviewed date:05/04/2024 01:19:03 PM Interpretation:Sensitive Performing Lab: Notes/Report: Sensitive Urinalysis - Inhouse Reviewed date:04/26/2024 04:19:20 PM Interpretation: Performing Lab: Notes/Report: Color/Clarity yellow/clear Leuk neg Nitrite neg Urobili 3.2 Protein neg pH 5.5 Blood trace-intact Sp. Gr. 1.010 Ketone 1+ Bili neg Gluc 2+ Urinalysis - Inhouse Reviewed date:05/29/2024 10:23:06 AM [...] 0.61 Performing Lab: Notes/Report: Test performed by [employer] [address] [place] [address] , [address], [place] [address] Damon Mireles MD, Bunk Assembler CLIA: [id number] Sodium 140 135-145 mmol/L Potassium 4.5 3.5-5.3 [...] 34 Performing Lab: Notes/Report: Test performed by [employer] [address] [place] [address] , [address], [place] [address] Damon Mireles MD, Bunk Assembler CLIA: [id number] Cholesterol 141 <200 mg/dL Triglycerides 264 <150 [...] Results: 54 Units: mg/dL % Change: -34% Estimated Average Glucose Reviewed date:11/26/2024 11:48:02 AM Interpretation:171 Performing Lab: Notes/Report: Test performed by [employer] [address] [place] [address] , [place] [address] Damon Mireles MD, Bunk Assembler DILSHADIA: [id number] Estimated Average Glucose (eAG) 171 Estimated Average Glucose (eAG) is calculated using the equation eAG = (28.7 x HbA1c) - 46.7 based on the guidelines established by the ADA. If the patient has certain diseases including kidney disease, sickle cell anemia, thalassemia, or is taking medications such as dapsone, erythropoietin, or iron, eAG should not be evaluated. P-Uric Acid Reviewed date:11/26/2024 11:48:02 AM Interpretation:Normal Performing Lab: Notes/Report: Test performed by [employer] [address] [place] [address] , [address], [place] [address] Damon Mireles MD, Bunk Assembler CLIA: [id number] Uric Acid 4.0 3.4-8.0 mg/dL P-Microalbumin/Creatinine, R andom Urine Sample Reviewed date:11/26/2024 11:48:02 AM Interpretation:a/c 41 Performing Lab: Notes/Report: Test performed by [employer] [address] [place] [address] , [place] [address] Damon Mireles MD, Bunk Assembler CLIA: [id number] Albumin/Creatinine Ratio, Urine 41 0-30 ug/mg Microalbumin, Urine, Random 2.1 Creatinine, Urine 50.9 P-TSH reflex to FT4 Reviewed date:11/26/2024 11:48:02 AM Interpretation:Normal Performing Lab: Notes/Report: Test performed by [employer] [address] [place] [address] , [address], [place] [address] Damon Mireles MD, Bunk Assembler CLIA: [id number] TSH reflex to FT4 1.04 0.43-5.25 mU/L P-Lipid Panel Reviewed date:11/26/2024 11:48:02 AM Interpretation:trigs 211, hdl 38 Performing Lab: Notes/Report: Test performed by [employer] [address] [place] [address] [address], [place] [address] Damon Mireles MD, Bunk Assembler CLIA: [id number] Cholesterol 140 <200 mg/dL Triglycerides 211 <150 [...] Results: 60 Units: mg/dL % Change: +11% P-Hemoglobin A1C Reviewed date:11/26/2024 11:48:02 AM Interpretation:7.6 Performing Lab: Notes/Report: Test performed by [employer] [address] [place] [address] [address] , [place] [address] Damon Mireles MD, Bunk Assembler CLIA: [id number] Hemoglobin A1C 7.6 <5.7 % The following HbA1c ranges recommended by the [place] [employer] (ADA) may be used as an aid in the diagnosis of diabetes mellitus. HbA1c Suggested Diagnosis >=6.5% Diabetic 5.7% - 6.4% Pre-Diabetic <5.7% Non-Diabetic P-Comprehensive Metabolic Pa jeanne ([facility]) Reviewed date:11/26/2024 11:48:01 AM Interpretation:gluc 129, Cr 0.69 Performing Lab: Notes/Report: Test performed by [employer] [address] [place] [address] [address] , [place] [address] Damon Mireles MD, Bunk Assembler CLIA: [id number] Sodium 141 135-145 mmol/L Potassium 4.8 3.5-5.3 [...] 0.3 <0.2-1.2 mg/dL A/G Ratio 2.0 1.1-2.5 Glucose (In-House) Reviewed date:11/26/2024 11:48:02 AM Interpretation:130 Performing Lab: Notes/Report: 130 blood glucose 130 74 - 106 mg/dL Medications Medication SIG (Take, Route, Frequency, Duration) Notes Start Date End Date Status Multivitamin - 1 tab(s) orally once a day Active Simvastatin 20 MG Take 1 Tablet by reshma th once daily at bedtime.; Duration: 90 Active CPAP machine and supplies - as directed as directed Active Spironolactone 25 MG Take 1 Tablet by mo uth once daily.; Duration: 90 Active Accu-Chek Softclix Lancets - USE TO TEST BLOOD SUGAR TWICE DAILY; Duration: 30 Active Accu-Chek Jaz Plus - Use to check bloo d sugar twice daily as directed.; Duration: 25 Active Allopurinol 300 MG 1 tab(s) orally once a day; Duration: 90 days Active Jardiance 25 MG TAKE 1 TABLET BY RESHMA TH DAILY; Duration: 30 Active Pioglitazone HCl 30 MG 1 tablet Orally O nce a day; Duration: 90 days Active metFORMIN HCl 1000 MG Take 1 Tablet by m outh twice daily with a meal.; Duration: 90 Active Ozempic (1 MG/DOSE) 4 MG/3ML 1 mg Subcutaneous once weekly 12/18/2024 Active Losartan Potassium 100 MG Take 1 Tablet by mouth once daily.; Duration: 90 Active Tamsulosin HCl 0.4 MG Take 1 Capsule by mouth once daily.; Duration: 90 Active Immunizations Vaccine Route Administration Date Status [...] Problem Status W/U Status Risk Notes Problem Essential hypertension (25547543) Essential hypertension (I10) Active confirmed Problem Morbid obesity (313014535) Morbid obesity (E66.01) Active confirmed Problem Pure hypercholesterolemia (207289995) Pure hypercholesterolemia (E78.0) Active confirmed Problem Degeneration of lumbar intervertebral disc (22589488) Lumbar degenerative disc disease (M51.36) Active confirmed Problem Urinary hesitancy (3472444) Urinary hesitancy (R39.11) Active confirmed Problem Type II diabetes mellitus without complication (256676488) Type 2 diabetes mellitus without complication (E11.9) Active confirmed Problem Obstructive sleep apnea syndrome (41439059) Obstructive sleep apnea syndrome (G47.33) Active confirmed Problem Gout (63587725) Gout, unspecifie d cause, unspecified chronicity, unspecified site (M10.9) Active confirmed Problem Tinnitus of right ea r (1381190744234) Tinnitus of right ear (H93.11) Active confirmed Problem Pure hypercholesterolemia (176929724) Pure hypercholesterolemia (E78.00) Active confirmed Problem Pure hypercholesterolemia (248760811) Pure hypercholesterolemia, unspecified (E78.00) Active confirmed Problem Hearing loss (45179372) Hearing loss, unspecified hearing loss type, unspecified laterality (H91.90) Active confirmed Problem Allergic rhinitis (29584377) Non-seasonal allergic rhinitis, unspecified trigger (J30.89) Active confirmed Problem Type II diabetes mellitus without complication (025496540) Type 2 diabetes mellitus without complication, unspecified whether nursing home insulin use (E11.9) Active confirmed Vital Signs Heart Rate 79 /min 02/26/2025 Blood pressure diastolic 70 mm Hg 02/26/2025 Height 65.5 in 02/26/2025 Blood pressure systolic 122 mm Hg 02/26/2025 Weight 256 lbs 02/26/2025 BMI 41.95 kg/m2 02/26/2025 Encounters Encounter Location Date Provider Diagnosis [facility] [address] [place], [place] [id number] 04/26/2024 Harshal Provencal Urinary hesitancy R3 9.11 and Pelvic pain R10.2 [facility] [address] [place], [place] [id number] 05/29/2024 Harshal Provencal Type 2 diabetes elivra itus without complication E11.9 ; Essential hypertension I10 ; Pure hypercholesterolemia, unspecified E78.00 ; Left-sided low back pain without sciatica, unspecified chronicity M54.50 ; Recent urinary tract infection Z87.440 and Urinary hesitancy R39.11 [facility] [address] [place], [place] [id number] 11/24/2024 Harshal Provencal Type 2 diabetes elvira itus without complication E11.9 ; Essential hypertension I10 ; Pure hypercholesterolemia, unspecified E78.00 and Gout, unspecified cause, unspecified chronicity, unspecified site M10.9 [facility] [address] [place], [place] [id number] 02/26/2025 Harshal Provencal Pain, upper back M54 .9 and Pain in left elbow M25.522 [facility] [address] [place], [place] [id number] 05/30/2024 Harshal Provencal [facility] [address] [facility] [address] [place], [place] [id number] 07/04/2024 Osman Aparicio Urinary hesitancy R3 9.11 [facility] [address] [place], [place] [id number] 07/25/2024 Harshal Provencal Pure hypercholestero lemia E78.00 and Essential hypertension I10 [facility] [address] [place], [place] [id number] 09/29/2024 Harshal Provencal Type 2 diabetes elvira itus without complication, unspecified whether termite treater helper insulin use E11.9 [facility] [address] [place], [place] [id number] 11/26/2024 Harshal Provencal [facility] [address] [place], [place] [id number] 12/18/2024 Harshal Provencal Type 2 diabetes elvira itus without complication E11.9 [facility] [address] [place], [place] [id number] 02/14/2025 Harshal Provencal Assessments Encounter Date Diagnosis (ICD Code) Assessment Notes Treatment Notes Treatment Clinical Notes Section Notes 04/26/2024 Urinary hesitancy (ICD-10 - R39.11) 04/26/2024 Pelvic pain (ICD-10 - R10.2) Patient seems to have a UTI 05/29/2024 Essential hypertensi on (ICD-10 - I10) 05/29/2024 Type 2 diabetes elvira itus without complication (ICD-10 - E11.9) 07/04/2024 Urinary hesitancy (ICD-10 - R39.11) 07/25/2024 Pure hypercholesterolemia (ICD-10 - E78.00) 09/29/2024 Type 2 diabetes elvira itus without complication, unspecified whether termite treater helper insulin use (ICD-10 - E11.9) 11/24/2024 Essential hypertensi on (ICD-10 - I10) 11/24/2024 Type 2 diabetes elvira itus without complication (ICD-10 - E11.9) 12/18/2024 Type 2 diabetes elvira itus without complication (ICD-10 - E11.9) 02/26/2025 Pain in left elbow (ICD-10 - M25.522) 02/26/2025 Pain, upper back (IC D-10 - M54.9) 11/24/2024 Pure hypercholesterolemia, unspecified (ICD-10 - E78.00) 07/25/2024 Essential hypertensi on (ICD-10 - I10) 05/29/2024 Pure hypercholesterolemia, unspecified (ICD-10 - E78.00) 05/29/2024 Left-sided low back pain without sciatica, unspecified chronicity (ICD-10 - M54.50) 11/24/2024 Gout, unspecified ca use, unspecified chronicity, unspecified site (ICD-10 - M10.9) 05/29/2024 Recent urinary tract infection (ICD-10 - Z87.440) 05/29/2024 Urinary hesitancy (ICD-10 - R39.11) Plan Of Treatment Pending Test Test Name Order Date X ray : Spine, thoracic spine 02/26/2025 Next Appt Details Provider Name:Harshal carvajal, 05/28/2025 09:15:00 AM, [address], [address], [place], [place], [phone], Insurance Providers Payer Name Payer Address Payer Phone Subscriber Number Group Number Insured Name Patient Relationship to Insured Coverage Start Date Coverage End Date [employer] [address] [address] [place], [place] [id number] BENJA GARCÍA Self - patient is the [...]
--- OUTSIDE RECORDS SUMMARY | 2025-02-26 11:38 | XMS_ITS | Clinical Summary ---
Author Organization [facility] Address [address] [facility] [address] [place], [place] [address] Phone Care Team Providers Care Camouflage Specialist Name Role Phone Harshal Garcia MD Primary Care Provider [phone] Allergies No known active allergies Medications metFORMIN [...] daily. Active oxymetazoline (AFRIN) 0.05 % Nasl [place], Non-Aerosol 2 Sprays by Nasal route 2 times daily. Active [facility] .[facility] 3 Active JARDIANCE 25 mg Oral Tablet Take 25 mg by mouth daily. 4 Active fluticasone propionate (FLONASE) 50 mcg/actuation Nasl [place], Suspension Daily 3 Active ACCU-CHEK SOFTCLIX LANCETS [facility] USE TO TEST BLOOD SUGAR TWICE [...] 8:30 AM EDT [place] [address] Malachi Schafer MD Diastolic dysfunction (Primary Dx); [...] MR [employer]NA MEDICARE HMO MR Care Teams Camouflage Specialist Relationship Specialty Start Date End Date Harshal Garcia MD [address] [address] [place] [address] PCP - General Family Medicine 08/05/18
--- OUTSIDE RECORDS SUMMARY | 2025-02-26 11:38 | XMS_ITS | Encounter Summary ---
Author Organization [facility] [place] [address] Care Team Providers Care Pattern Grader Supervisor Name Role Phone Harshal Garcia MD Primary Care Provider [phone] Encounter Details Date Type Department Care Team [...] on filedocumented in this encounter Care Teams Pattern Grader Supervisor Relationship Specialty Start Date End Date Harshal Garcia MD [address] [place] [place] [id number] PCP - General Family Medicine 08/05/18 documented as of this encounter
== END 2025-02-26 23:59 | disposition home or self-care (01) ==
LOC: RAD 11:33
PROVIDERS: PCP Family Medicine; Visit Provider Family Medicine
DX: M47.814 Spondylosis without myelopathy or radiculopathy, thoracic region (principal)
CPT/HCPCS: 72072

== ENCOUNTER 2025-03-06 10:31 | Day surgery (SDC) | payer MEDICARE, SELFPAY ==
[2025-03-06 10:33] VITALS: BP 129/67; PULSE 68; RESP 16; O2SAT 96; BMI 38.5
[2025-03-06] MEDS: DEXAMETHASONE 10MG/ML 1ML VIAL 10 MG (10:46)
[2025-03-06 10:47] VITALS: BP 141/65; PULSE 79; RESP 18; O2SAT 94
[2025-03-06 10:48] VITALS: BP 141/65; PULSE 79; RESP 18; O2SAT 94
[2025-03-06 10:52] VITALS: BP 132/76; PULSE 94; RESP 18; O2SAT 96
--- NOTE | 2025-03-06 10:57 | EXP.PAIN.PRO ---
Procedure Date: 03/06/25 Time: 10:30 Anesthesiologist:: Scott Dominguez CRNA Complications:: None Pre-procedure Diagnosis:: Degenerative disc lumbar spine multilevels. Lumbar radiculopathy Post-procedure Diagnosis:: Same. Indications for Procedure:: Patient is a very pleasant 65-year-old male who comes our clinic today for lumbar epidural steroid injection. Patient describes low lumbar back pain as well as bilateral hip and leg radicular symptoms. He is having difficulty with sitting, standing, ambulation due to the low back pain as well as radicular symptoms. He rates his pain 7/10. Procedure Details:: Procedure: Lumbar epidural steroid injection under fluoroscopy Informed consent was obtained and the risks and benefits of the procedure were explained to the patient. The patient was taken to the procedure room and noninvasive monitors placed, including noninvasive blood pressure cuff and pulse oximeter. The back was viewed using C-arm Fluoroscopy and prepped using Chloraprep as a cleansing solution and the L4-L5 interspace was palpated. Skin and subcutaneous tissues were anesthetized using lidocaine 1.5% and a 25-gauge needle. After this, an 18-gauge Touhy epidural needle was placed into the L4-L5 interspace and advanced using fluoroscopic guidance and loss of resistance to air until the epidural space was encountered. After confirmation of needle placement in the epidural space, with dye, a solution containing normal saline, 3 mL and dexamethasone 10 mg were incrementally injected into the lumbar epidural space. The patient tolerated the procedure well with no complications. The patient was observed in the Pain Clinic and then discharged home neurologically intact. Plan and Disposition:: Patient was discharged without incident.
== END 2025-03-06 10:52 | disposition home or self-care (01) ==
PROVIDERS: PCP Family Medicine; Visit Provider Nurse Anesthetist, Certified Registered
DX: M51.16 Intervertebral disc disorders with radiculopathy, lumbar region (principal); E11.9 Type 2 diabetes mellitus without complications; M10.9 Gout, unspecified; E78.5 Hyperlipidemia, unspecified; E66.01 Morbid (severe) obesity due to excess calories; Z68.38 Body mass index [BMI] 38.0-38.9, adult; I10 Essential (primary) hypertension; E55.9 Vitamin D deficiency, unspecified; Z79.84 Long term (current) use of oral hypoglycemic drugs; Z79.899 Other long term (current) drug therapy
CPT/HCPCS: 64483; J1100

== ENCOUNTER 2025-03-22 08:35 | Outpatient (POV) | payer MEDICARE, SELFPAY ==
--- OUTSIDE RECORDS SUMMARY | 2024-05-29 05:00 | XMS_ITS ---
[facility] [address] [place] [phone] Care Team Providers Care Office Support Assistant Name Role Phone Harshal Garcia Primary Care Provider Osman Aparicio Unavailable [phone] Allergies No Known Allergies Results Component Value [...] 0.61 Performing Lab: Notes/Report: Test performed by [facility] [address] [place] [address] , [address], [place] [address] Damon Mireles MD, Complaint Evaluation Supervisor CLIA: [id number] Sodium 140 135-145 mmol/L Potassium 4.5 3.5-5.3 [...] 34 Performing Lab: Notes/Report: Test performed by [facility] [address] [place] [address] [address], [place] [address] Damon Mireles MD, Complaint Evaluation Supervisor CLIA: [id number] Cholesterol 141 <200 mg/dL Triglycerides 264 <150 [...] older) Unknown 05/29/2024 P ending Vital Signs Weight 259.8 lbs 05/29/2024 Blood pressure systolic 120 mm Hg 05/29/20 24 Blood pressure diastolic 80 mm Hg 024 Heart Rate 80 /min 05/29/2024 Height 65.5 in 05/29/2024 BMI 42.57 kg/m2 05/29/2024 Encounters Encounter Location Date Provider Diagnosis [facility] [address] [phone] 05/29/2024 Harshal Garcia Type 2 diabetes elvira [...] Up: 6 Months, Reason: Provider Name:Harshal carvajal, 05/28/2025 09:15:00 AM, [address], [address], [place], [place], [id number], Progress Notes * BENJA SIMSOB:0 1960 (65 yo M)Acc No.[id number]:05/29/2024 Progress Notes Patient: BENJA UGALDE Provider: Franky Garcia M.D. :1960 A ge:64 Y S ex:Male Date:05/29/2024 Address:[address] [place] [address] Subjective: * Chief Complaints: * 1 . 6 month checkup. * HPI: C ardiology: 64 year old male presents with c/o Blood Pressure Elevated?Pt here for 6 mo f/u on hypertension, [...] G 2211 Complex e/[place], [address] GLUCOSE TEST, 04862 GLYCATED HEMOGLOBIN TEST, Modifiers: QW , 45021 Urinalysis, no micro, 55073 CBC WITH AUTO DIFF * Follow Up: 6 Months * Images: Billing Information: * Visit Code: 45004 Office Visit, Est Pt., Level 4. * Procedure Codes: G2211 Complex e/[place]. [address] GLUCOSE TEST. 21458 GLYCATED HEMOGLOBIN TEST. Modifiers: QW 12177 Urinalysis, no micro. 64475 CBC WITH AUTO DIFF. * Electronic signature of Peggy Garcia MD on 03/22/2025 at 08:38 AM EDT Sign off status: Pending * Provider: Franky Garcia M.D. Date: 0 05/29/2024 Generated for Candido ram/Katherine/eTransmitting on: 0 03/22/2025 08:38 AM EDT History and Physical Notes * HPI [...]
--- OUTSIDE RECORDS SUMMARY | 2024-11-24 05:00 | XMS_ITS ---
Author [facility] Address [address] [facility] [address] [place] [id number] Care Team Providers Care Chemical Blender Name Role Phone Harshal Garcia Primary Care Provider Osman Aparicio Unavailable [phone] Allergies No Known Allergies Results Component Value Reference Range Notes Glucose (In-House) Reviewed date:11/26/2024 11:48:02 AM Interpretation:130 Performing Lab: Notes/Report: 130 blood glucose 130 74 - 106 mg/dL P-Comprehensive Metabolic Pa jeanne (CMP) Reviewed date:11/26/2024 11:48:01 AM Interpretation:gluc 129, Cr 0.69 Performing Lab: Notes/Report: Test performed by [employer] [facility] , [address], [place] [address] Damon Mireles MD, Broom Stitcher CLIA: [id number] Sodium 141 135-145 mmol/L Potassium 4.8 3.5-5.3 [...] Interpretation:7.6 Performing Lab: Notes/Report: Test performed by [facility] [address] [place] [address] [place] [address] Damon Mireles MD, Broom Stitcher CLIA: [id number] Hemoglobin A1C 7.6 <5.7 % The following HbA1c ranges recommended by the [place] Diabetes Association (ADA) may be used as an aid in the diagnosis of diabetes mellitus. HbA1c Suggested Diagnosis >=6.5% Diabetic 5.7% - 6.4% Pre-Diabetic <5.7% Non-Diabetic P-Lipid Panel Reviewed date:11/26/2024 11:48:02 AM Interpretation:trigs 211, hdl 38 Performing Lab: Notes/Report: Test performed by [facility] [address] [place] [address] [address] Covarrubias , [place] [address] Damon Mireles MD, Broom Stitcher CLIA: [id number] Cholesterol 140 <200 mg/dL Triglycerides 211 <150 [...] Interpretation:Normal Performing Lab: Notes/Report: Test performed by [facility] [address] [place], [place] [address] , [address], [place] [address] Damon Mireles MD, Broom Stitcher CLIA: [id number] TSH reflex to FT4 1.04 0.43-5.25 mU/L P-Microalbumin/Creatinine, R andom Urine Sample Reviewed date:11/26/2024 11:48:02 AM Interpretation:a/c 41 Performing Lab: Notes/Report: Test performed by [facility] [address] [place] [address] , [address], [place] [address] Damon Mireles MD, Broom Stitcher CLIA: [id number] Albumin/Creatinine Ratio, Urine 41 0-30 ug/m g Microalbumin, Urine, Random 2.1 Creatinine, Urine 50.9 P-Uric Acid Reviewed date:11/26/2024 11:48:02 AM Interpretation:Normal Performing Lab: Notes/Report: Test performed by [facility] [address] [place] [address] [address], [place] [address] Damon Mireles MD, Broom Stitcher CLIA: [id number] Uric Acid 4.0 3.4-8.0 mg/dL Estimated Average Glucose Reviewed date:11/26/2024 11:48:02 AM Interpretation:171 Performing Lab: Notes/Report: Test performed by [facility] [address] [place] [address] Dr. [place] [id number] Damon Mireles MD, Broom Stitcher CLIA: [id number] Estimated Average Glucose (eAG) 171 Estimated Average [...] Encounter Location Date Provider Diagnosis [facility] 1210 [facility] 36 [facility] [address] [place] [id number] 11/24/2024 Harshal Garcia Type 2 diabetes elvira [...] 05/28/2025 09:15:00 AM, [address] [facility] 36 [facility], [address], [place], [id number], Progress Notes * BENJA SIMSOB:0 1960 (65 yo M)Acc No.[id number]:11/24/2024 Progress Notes Patient: Vladimir BENJA VAN Provider: Franky Garcia M.D. :1960 A ge:64 Y S ex:Male Date:11/24/2024 Address:[address] [place] [address] Subjective: * Chief Complaints: * 1 . [...] stimated Average Glucose 171 - mg/dL * [facility], IT support 11/25/2024 04:20:14 : This order was created by the Interface. Constanza Turcios 11/26/2024 11:47:49 AM >See phone encounter * Procedure Codes: G 2211 Complex e/[place], [address] GLUCOSE TEST, 3051F HG A1C>EQUAL 7.0%<8.0%, G8752 MOST RECENT SYSTOLIC BP < 140MM HG, G8754 MOST RECENT DIASTOLIC BP < 90MM HG * Follow Up: 6 Months * Images: Billing Information: * Visit Code: 51645 Office Visit, Est Pt., Level 4. * Procedure Codes: G2211 Complex e/[place]. [address] GLUCOSE TEST. 3051F HG A1C>EQUAL 7.0%<8.0%. G8752 MOST RECENT SYSTOLIC BP < 140MM HG. G8754 MOST RECENT DIASTOLIC BP < 90MM HG. * Electronic signature of Peggy Garcia MD on 03/22/2025 at 08:38 AM EDT Sign off status: Pending * Provider: Franky Garcia M.D. Date: 0 11/24/2024 Generated for Candido ram/Katherine/eTransmitting on: 0 03/22/2025 [...]
--- OUTSIDE RECORDS SUMMARY | 2025-02-05 08:30 | XMS_ITS | Encounter Summary ---
Author Organization [place] [address] Care Team Providers Care Framing Inspector Name Role Phone Harshal Garcia MD Primary Care Provider [phone] Reason for Visit * Reason Comments Follow-up Encounter Details Date Type Department Care Team (Late st Contact Info) Description 02/05/2025 8:30 AM EDT Office Visit [facility] [place] [facility] [place] [address] [place] [address] Malachi Schafer MD [address] [place] [address] Diastolic dysfunction (Primary Dx); Mixed hyperlipidemia; Primary [...] file. Current Outpatient Medications: ACCU-CHEK SOFTCLIX LANCETS [facility], USE TO TEST BLOOD SUGAR TWICE DAILY, Disp: , Rfl: allopurinoL (ZYLOPRIM) 300 mg Oral Tablet, Take by mouth daily., Disp: , Rfl: BLOOD SUGAR DIAGNOSTIC [facility] [place], .COMPLEX, Disp: , Rfl: ertugliflozin (STEGLATRO) 15 mg Oral Tablet, Take 15 mg by mouth daily. (Patient not taking: Reported on 01/31/2024), Disp: , Rfl: fluticasone propionate (FLONASE) 50 mcg/actuation Nasl [place], Suspension, Daily, Disp: , Rfl: JARDIANCE 25 [...] , Rfl: oxymetazoline (AFRIN) 0.05 % Nasl [place], Non-Aerosol, 2 Sprays by Nasal route 2 [...] 45-50% with mild global hypokinesis Echo 07/21 ([facility]): TDS. EF 55%. Mild LVH. Grade I [...] - 02/05/2025 8:30 AM EDT Please call [phone] in May to schedule appointment between November [...] 01/17/2025 added in this encounter Care Teams Framing Inspector Relationship Specialty Start Date End Date Harshal Garcia MD [address] [place] [address] [place] [id number] PCP - General Family Medicine 08/05/18 documented as of this encounter
--- OUTSIDE RECORDS SUMMARY | 2025-02-26 06:30 | XMS_ITS ---
Author Organization [facility] Address [address] [place] [phone] Care Team Providers Care Managing Director Atlas Name Role Phone Harshal Garcia Primary Care Provider Osman Aparicio Unavailable [phone] Allergies No Known Allergies Results Component Value [...] 02/26/2025 Encounters Encounter Location Date Provider Diagnosis [facility] [address] [facility] 36 [facility] [address] [place], [place] [phone] 02/26/2025 Harshal Garcia Pain, upper back M54 [...] Name:Harshal Lee ry, 05/28/2025 09:15:00 AM, [address] [facility] 36 [facility], [address], [place], [place], [phone], Progress Notes * BENJA SIMSOB:0 1960 (65 yo M)Acc No.[id number]:02/26/2025 Progress Notes Patient: BENJA UGALDE Provider: Franky Garcia M.D. :1960 A ge:65 Y S ex:Male Date:02/26/2025 Address:[address] [place] [address] Subjective: * Chief Complaints: * 1 . [...] * Images: Billing Information: * Visit Code: 75224 Office Visit, Est Pt., Level 3. * [...] Date: 02/26/2025 Generated for Candido ram/Katherine/Rosalinda on: 03/22/2025 08:38 AM EDT History and Physical [...]
--- OUTSIDE RECORDS SUMMARY | 2025-03-22 08:38 | XMS_ITS | Encounter Summary ---
Author Organization [facility] [place] [address] Care Team Providers Care Circulation Analyst Name Role Phone Harshal Garcia MD Primary Care Provider [phone] Encounter Details Date Type Department Care Team [...] on filedocumented in this encounter Care Teams Circulation Analyst Relationship Specialty Start Date End Date Harshal Garcia MD [address] [place] [id number] PCP - General Family Medicine 08/05/18 documented as of this encounter
--- OUTSIDE RECORDS SUMMARY | 2025-03-22 08:38 | XMS_ITS | Clinical Summary ---
Author Organization [facility] Address [address] [facility] [address] [place], [place] [address] Phone Care Team Providers Care Civil Manager Name Role Phone Harshal Garcia MD Primary Care Provider [phone] Allergies No known active allergies Medications metFORMIN [...] daily. Active oxymetazoline (AFRIN) 0.05 % Nasl [place], Non-Aerosol 2 Sprays by Nasal route 2 times daily. Active BLOOD SUGAR DIAGNOSTIC [facility] .COMPLEX 02/17/2023 Act isrrael JARDIANCE 25 mg Oral Tablet Take 25 mg by mouth daily. 2024 Active fluticasone propionate (FLONASE) 50 mcg/actuation Nasl [place], Suspension Daily 08/31/2022 Active ACCU-CHEK SOFTCLIX LANCETS [facility] USE TO TEST BLOOD SUGAR TWICE DAILY 11/01/2023 Active Melatonin 3 mg Oral Tablet Take 5 mg by mouth nightly. Active OZEMPIC 1 mg/dose (4 mg/3 mL) SubQ Pen Injector Inject 1 mg as directed once a week. 01/17/2025 Active tamsulosin (FLOMAX) 0.4 mg Oral Capsule Take 0.4 mg by mouth daily. 12/25/2024 Active Active Problems Problem Noted Date Diagnosed Date Rotator cuff syndrome of left shoulder 8 Encounters Date Type Department Care Team Description 02/05/2025 8:30 AM EDT Office [place] [address] Malachi Schafer MD Diastolic dysfunction (Primary Dx); [...] season) 2024 09/02/2021, 12/03/2020, 11/07/2020 Influenza Vaccine (#1) 2025 2, 06/18/2021, 06/14/2019, Additional history exists Hepatitis B Vaccine Aged Out No longe r eligible based on patient's age to complete this topic Meningococcal B Vaccine Aged Out No l onger eligible based on patient's age to complete this topic Insurance HU[employer]NA MEDICARE HMO MR HU[employer]NA MEDICARE HMO MR [place] [id number] Care Teams Civil Manager Relationship Specialty Start Date End Date Harshal Garcia MD [address] [place] [phone] PCP - General Family Medicine 08/05/18
--- OUTSIDE RECORDS SUMMARY | 2025-03-22 08:38 | XMS_ITS | Patient Health Record ---
Author [facility] Address [address] [place] [id number] Care Team Providers Care Traffic Lieutenant Name Role Phone Harshal Garcia Primary Care Provider [phone] Osman Aparicio Unavailable [phone] Allergies No Known Allergies Results Component Value Reference Range Notes Estimated Average Glucose Reviewed date:11/26/2024 11:48:02 AM Interpretation:171 Performing Lab: Notes/Report: Test performed by [facility] [address] [place], [place] [address]mo[address] , [address], [place] [address] Damon Mireles MD, Drupal Web Developer CLIA: [id number] Estimated Average Glucose (eAG) 171 Estimated Average [...] Interpretation:Normal Performing Lab: Notes/Report: Test performed by [facility] [address] [place], [place] [address] , [address], [place] [address] Damon Mireles MD, Drupal Web Developer CLIA: [id number] Uric Acid 4.0 3.4-8.0 mg/dL P-Microalbumin/Creatinine, R andom Urine Sample Reviewed date:11/26/2024 11:48:02 AM Interpretation:a/c 41 Performing Lab: Notes/Report: Test performed by [facility], [address] , [address], [place] [address] Damon Mireles MD, Drupal Web Developer CLIA: [id number] Albumin/Creatinine Ratio, Urine 41 0-30 ug/mg Microalbumin, Urine, Random 2.1 Creatinine, Urine 50.9 P-TSH reflex to FT4 Reviewed date:11/26/2024 11:48:02 AM Interpretation:Normal Performing Lab: Notes/Report: Test performed by [facility] [address], [place] [address] Damon Mireles MD, Drupal Web Developer CLIA: [id number] TSH reflex to FT4 1.04 0.43-5.25 mU/L P-Lipid Panel Reviewed date:11/26/2024 11:48:02 AM Interpretation:trigs 211, hdl 38 Performing Lab: Notes/Report: Test performed by [facility] [address], [place] [address] Daomn Mireles MD, Drupal Web Developer CLIA: [id number] Cholesterol 140 <200 mg/dL Triglycerides 211 <150 [...] Interpretation:7.6 Performing Lab: Notes/Report: Test performed by [facility] [address] [place], [place] [address] , [address] , [place] [address] Damon Mireles MD, Drupal Web Developer CLIA: [id number] Hemoglobin A1C 7.6 <5.7 % The following HbA1c ranges recommended by the [place] [employer] (ADA) may be used as an aid in the diagnosis of diabetes mellitus. HbA1c Suggested Diagnosis >=6.5% Diabetic 5.7% - 6.4% Pre-Diabetic <5.7% Non-Diabetic P-Comprehensive Metabolic Pa jenane ([facility]) Reviewed date:11/26/2024 11:48:01 AM Interpretation:gluc 129, Cr 0.69 Performing Lab: Notes/Report: Test performed by [facility] [address] [place] [address] , [address], [place] [address] Damon Mireles MD, Drupal Web Developer CLIA: [id number] Sodium 141 135-145 mmol/L Potassium 4.8 3.5-5.3 [...] blood glucose 130 74 - 106 mg/dL P-Lipid Panel Reviewed date:05/30/2024 10:44:07 AM Interpretation:trigs 264, hdl 34 Performing Lab: Notes/Report: Test performed by [facility] [address] [place] [address] , [address], [place] [address] Damon Mireles MD, Drupal Web Developer CLIA: [id number] Cholesterol 141 <200 mg/dL Triglycerides 264 <150 [...] Results: 54 Units: mg/dL % Change: -34% P-Comprehensive Metabolic Pa jeanne (CMP) Reviewed date:05/30/2024 10:44:07 AM Interpretation:gluc 136, Cr 0.61 Performing Lab: Notes/Report: Test performed by [facility] , [address], [place] [address] Damon Mireles MD, Drupal Web Developer CLIA: [id number] Sodium 140 135-145 mmol/L Potassium 4.5 3.5-5.3 [...] 0.3 <0.2-1.2 mg/dL A/G Ratio 2.3 1.1-2.5 Glycohemoglobin A1c (in hous e) Reviewed date:05/29/2024 10:23:32 AM Interpretation: Performing Lab: Notes/Report: glycohemoglobin 7.6% 5 - 6.5 % CBC Venipuncture (in house) Reviewed date:05/29/2024 10:23:24 [...] - 38 platlet 193 100 - 400 Glucose (In-House) Reviewed date:05/29/2024 10:23:15 AM Interpretation: Performing Lab: Notes/Report: blood glucose 148 74 - 106 mg/dL Urinalysis - Inhouse Reviewed date:05/29/2024 10:23:06 AM Interpretation: Performing Lab: Notes/Report: Color/Clarity yellow/clear Leuk neg Nitrite neg Urobili 3.2 Protein neg pH 5.5 Blood neg Sp. Gr. 1.015 Ketone neg Bili neg Gluc 2+ X ray : Spine, thoracic spin e Reviewed date:02/28/2025 05:02:40 PM Interpretation:mild degenerative change Performing Lab: Notes/Report: mild degenerative change Urinalysis - Inhouse Reviewed date:04/26/2024 04:19:20 PM Interpretation: Performing Lab: Notes/Report: Color/Clarity yellow/clear Leuk neg Nitrite neg Urobili 3.2 Protein neg pH 5.5 Blood trace-intact Sp. Gr. 1.010 Ketone 1+ Bili neg Gluc 2+ TEN-UTI panel Reviewed date:05/04/2024 01:19:03 PM Interpretation:Sensitive Performing Lab: Notes/Report: Sensitive Medications Medication SIG (Take, Route, Frequency, Duration) [...] twice daily as directed.; Duration: 25 Active Jardiance 25 MG TAKE 1 TABLET BY RESHMA TH DAILY; Duration: 30 Active metFORMIN HCl 1000 MG Take 1 Tablet by m outh twice daily with a meal.; Duration: 90 Active Ozempic (1 MG/DOSE) 4 MG/3ML 1 mg Subcutaneous once weekly 12/18/2024 Active Allopurinol 300 MG 1 tab(s) orally once a day; Duration: 90 days Active Losartan Potassium 100 MG Take 1 Tablet by mouth once daily.; Duration: 90 Active Tamsulosin HCl 0.4 MG Take 1 Capsule by mouth once daily.; Duration: 90 Active Pioglitazone HCl 30 MG TAKE 1 TABLET BY MOUTH DAILY; Duration: 90 Active Immunizations Vaccine Route Administration Date Status Comme nts Tetanus Tdap-Adacel (over 7yrs) IM Intramuscular 07/22/2016 Administered Fluzone Quad (6months&older) IM Intramuscular 07/22/2016 Administered Fluzone Quad (6months&older) IM Intramuscular 07/21/2017 Administered Fluzone Quad (6months&older) IM Intramuscular 07/27/2018 Administered Fluzone Quad (6months&older) IM Intramuscular 06/14/2019 Administered Fluzone Quad (6months&older) Unknown 06/19/2020 Pending Fluzone Quad (6months&older) IM Intramuscular 06/18/2021 Administered Fluzone PF Quad (6-35 months) Unknown 06/29/2022 Administered Fluzone High Dose (65yr and older) Unknown 05/29/2024 Pending COVID 19 Moderna Unknown 11/07/2020 Administered COVID 19 Moderna Unknown 12/03/2020 Administered COVID 19 Moderna Unknown 09/02/2021 Administered Problems Problem Type SNOMED Code ICD Code Onset Dates Problem Status W/U Status Risk Notes Problem Essential hypertension (91438099) Essential hypertension (I10) Active confirmed Problem Morbid obesity (817279728) Morbid obesity (E66.01) Active confirmed Problem Pure hypercholesterolemia (344116446) Pure hypercholesterolemia (E78.0) Active confirmed Problem Degeneration of lumbar intervertebral disc (09489478) Lumbar degenerative disc disease (M51.36) Active confirmed Problem Urinary hesitancy (7863787) Urinary hesitancy (R39.11) Active confirmed Problem Type II diabetes mellitus without complication (337862942) Type 2 diabetes mellitus without complication (E11.9) Active confirmed Problem Obstructive sleep apnea syndrome (27879195) Obstructive sleep apnea syndrome (G47.33) Active confirmed Problem Gout (61827584) Gout, unspecifie d cause, unspecified chronicity, unspecified site (M10.9) Active confirmed Problem Tinnitus of right ea r (7629476940264) Tinnitus of right ear (H93.11) Active confirmed Problem Pure hypercholesterolemia (044659604) Pure hypercholesterolemia (E78.00) Active confirmed Problem Pure hypercholesterolemia (166699840) Pure hypercholesterolemia, unspecified (E78.00) Active confirmed Problem Hearing loss (67422306) Hearing loss, unspecified hearing loss type, unspecified laterality (H91.90) Active confirmed Problem Allergic rhinitis (30729621) Non-seasonal allergic rhinitis, unspecified trigger (J30.89) Active confirmed Problem Type II diabetes mellitus without complication (486378574) Type 2 diabetes mellitus without complication, unspecified whether penitentiary insulin use (E11.9) Active confirmed Vital Signs Heart Rate 79 /min 02/26/2025 Blood pressure diastolic 70 mm Hg 02/26/2025 Height 65.5 in 02/26/2025 Blood pressure systolic 122 mm Hg 02/26/2025 Weight 256 lbs 02/26/2025 BMI 41.95 kg/m2 02/26/2025 Encounters Encounter Location Date Provider Diagnosis [facility] [address] [place] [id number] 04/26/2024 Harshal Ivanhoe Urinary hesitancy R3 9.11 and Pelvic pain R10.2 [facility] [address] [place] [id number] 05/29/2024 Harshal Ivanhoe Type 2 diabetes elvira itus without complication E11.9 ; Essential hypertension I10 ; Pure hypercholesterolemia, unspecified E78.00 ; Left-sided low back pain without sciatica, unspecified chronicity M54.50 ; Recent urinary tract infection Z87.440 and Urinary hesitancy R39.11 [facility] [address] [place], [place] [id number] 11/24/2024 Harshal Ivanhoe Type 2 diabetes elvira itus without complication E11.9 ; Essential hypertension I10 ; Pure hypercholesterolemia, unspecified E78.00 and Gout, unspecified cause, unspecified chronicity, unspecified site M10.9 [facility] [address] [place], [place] [id number] 02/26/2025 Harshal Ivanhoe Pain, upper back M54 .9 and Pain in left elbow M25.522 [facility] [address] [place] [id number] 03/13/2025 Harshal Ivanhoe [facility] [address] [place] [id number] 05/30/2024 Harshal Ivanhoe [facility] [address] [place] [id number] 07/04/2024 Osman Aparicio Urinary hesitancy R3 9.11 [facility] [address] [place], [place] [id number] 07/25/2024 Harshal Ivanhoe Pure hypercholestero lemia E78.00 and Essential hypertension I10 [facility] [address] [place], [place] [id number] 09/29/2024 Harshal Ivanhoe Type 2 diabetes elvira itus without complication, unspecified whether intermediate project manager insulin use E11.9 [facility] [address] [place], [place] [id number] 11/26/2024 Harshal Ivanhoe [facility] [address] [place], [place] [id number] 12/18/2024 Harshal Ivanhoe Type 2 diabetes elvira itus without complication E11.9 [facility] [address] [place] [id number] 02/14/2025 Harshalcarrol StanleyIvanhoe [facility] [address] [place] [id number] 02/28/2025 Harshal Garcia Assessments Encounter Date Diagnosis (ICD Code) Assessment Notes Treatment Notes Treatment Clinical Notes Section Notes 04/26/2024 Urinary hesitancy (ICD-10 - R39.11) 04/26/2024 Pelvic pain (ICD-10 - R10.2) Patient seems to have a UTI 05/29/2024 Essential hypertensi on (ICD-10 - I10) 05/29/2024 Type 2 diabetes mellitus without complication (ICD-10 - E11.9) 07/04/2024 Urinary hesitancy (ICD-10 - R39.11) 07/25/2024 Pure hypercholesterolemia (ICD-10 - E78.00) 09/29/2024 Type 2 diabetes mellitus without complication, unspecified whether intermediate project manager insulin use (ICD-10 - E11.9) 11/24/2024 Essential hypertensi on (ICD-10 - I10) 11/24/2024 Type 2 diabetes mellitus without complication (ICD-10 - E11.9) 12/18/2024 Type 2 diabetes mellitus without complication (ICD-10 - E11.9) 02/26/2025 Pain in left elbow (ICD-10 - M25.522) 02/26/2025 Pain, upper back (ICD-10 - M54.9) heating pad to affected areas 2 to 3 times a day TENS unit OTC recommended 11/24/2024 Pure hypercholesterolemia, unspecified (ICD-10 - E78.00) 07/25/2024 Essential hypertensi on (ICD-10 - I10) 05/29/2024 Pure hypercholesterolemia, unspecified (ICD-10 - E78.00) 05/29/2024 Left-sided low back pain without sciatica, unspecified chronicity (ICD-10 - M54.50) 11/24/2024 Gout, unspecified cause, unspecified chronicity, unspecified site (ICD-10 - M10.9) 05/29/2024 Recent urinary tract infection (ICD-10 - Z87.440) 05/29/2024 Urinary hesitancy (ICD-10 - R39.11) Plan Of Treatment Next Appt Details Provider Name:Harshal Stanleyracheal ry, 05/28/2025 09:15:00 AM, [address], [place], [place], [id number], Insurance Providers Payer Name Payer Address Payer Phone Subscriber Number Group Number Insured Name Patient Relationship to Insured Coverage Start Date Coverage End Date [employer] [address] [address] [place], [place] [id number] BENJA GARCÍA Self - patient is the [...]
[2025-03-22 08:47] VITALS: BP 125/70; PULSE 78; RESP 18; O2SAT 95; BMI 38.0
--- NOTE | 2025-03-22 09:03 | EXP.PAIN.SOA ---
[facility] Disclaimer: The information contained in this section may have been updated after the patient was seen, as this information can be updated by other users. Medical History Negative colorectal cancer screening using DNA-based stool test Vitamin D deficiency Degeneration of intervertebral disc of lumbar region with osteophyte of lumbar vertebra DM type 2 (diabetes mellitus, type 2) Gout Morbid obesity Diastolic dysfunction Hyperlipemia Hypertension Olecranon bursitis of left elbow Surgical History History of tonsillectomy History of rotator cuff surgery Family History Other Heart attack Stroke Social History Smoking Status: Never smoker alcohol intake: never current occupational status: other Travel in the last 8 weeks?: None PM Subjective & Objective Subjective Subjective:: Patient is a pleasant 65-year-old male who presents today for follow-up status post lumbar epidural steroid injection L4-L5 on 03/06/2025. Today he rates his pain a 4 out of 10. Patient states it is still all across to his low back and states he really did not notice any improvement with this injection. Patient states that he felt like he never really got numb and did not really get much benefit from this. Patient does state the pain is worse when he is getting up and starting to move around. Patient states that is fairly constant. His Tony has been reviewed and is appropriate. Review of Systems: General: No recent weight changes, no fever, no sleep disturbances Respiratory: No cough, no shortness of air, no recurring pulmonary infections Cardiovascular/peripheral vascular: No chest pain, no palpitations, no edema, no shortness of breath Gastrointestinal: No new onset incontinence, normal bowel movements reported Genitourinary: No new onset incontinence Musculoskeletal: Low back pain Psychiatric: [Normal mood/affect] Neurological: [Denies weakness in extremities], [denies balance issues] Pain at rest (0-10 scale): 4 Objective Objective:: Physical Exam: General: Alert and oriented x3, no acute distress, pleasant and cooperative Lungs: Respirations even and unlabored, symmetrical chest expansion Eyes: PERRL Musculoskeletal: Flexion and extension of lumbar [spine] somewhat guarded secondary to pain, [antalgic gait noted] Neurological: Speech clear, no gross sensory deficit Has patient had previous pain injection?: Yes Percent improvement in pain since last injection: Minimal Conservative treatment options previously tried: Home exercise plan Length of treatment: Longer than 12 weeks Meds Home Medications and Allergies Home Medications ?Medication ?Instructions ?Recorded ?Confirmed ?Type meloxicam 15 mg tablet 15 mg PO DAILY 03/11/22 03/22/25 History fluticasone propionate 50 1 spray intranasal DAILY #16 grams 08/31/22 03/22/25 Rx mcg/actuation nasal spray,suspension (Allergy Relief (fluticasone)) albuterol sulfate 90 mcg/actuation 2 puff inhalation Q4-6H PRN 11/30/22 03/22/25 Rx aerosol inhaler shortness of breath or wheezing #8.5 grams diazepam 5 mg tablet 5 mg PO DAILY PRN prior to 02/03/23 03/22/25 Rx procedure #1 tab blood sugar diagnostic (Accu-Chek #50 strips 02/17/23 03/22/25 Rx Jaz Plus test strips) ertugliflozin 15 mg tablet See Rx Instructions .Route 05/19/23 03/22/25 Rx (Steglatro) .COMPLEX #30 tabs pioglitazone 30 mg tablet 30 mg PO DAILY #90 tabs 07/08/23 03/22/25 Rx spironolactone 25 mg tablet 25 mg PO DAILY #90 tabs 07/27/23 03/22/25 Rx allopurinol 300 mg tablet See Rx Instructions .Route 08/16/23 03/22/25 Rx .COMPLEX #30 tabs metformin 1,000 mg tablet See Rx Instructions .Route 08/16/23 03/22/25 Rx .COMPLEX #60 tabs losartan 100 mg tablet See Rx Instructions .Route 04/24/24 03/22/25 Rx .COMPLEX #90 tabs simvastatin 20 mg tablet See Rx Instructions .Route 04/27/24 03/22/25 Rx .COMPLEX #30 tabs baclofen 10 mg tablet 10 mg PO BID #28 tabs 01/17/25 03/22/25 Rx diclofenac sodium 75 mg 75 mg PO BID #28 tabs 03/22/25 Rx tablet,delayed release New Prescriptions to Start Prescriptions: torie sodium Low,Kristin A Allergies Allergy/AdvReac Type Severity Reaction Status Date / Time No Known Allergies Allergy Verified 03/27/24 09:30 Assessment and Plan *Assessment and plan (1) Lumbar radiculopathy: Status: Acute Category: Medical Code(s): M54.16 - Radiculopathy, lumbar region (2) Lumbar facet arthropathy: Status: Acute Category: Medical Code(s): M47.816 - Spondylosis without myelopathy or radiculopathy, lumbar region (3) Low back pain: Status: Acute Qualifiers: Chronicity: acute Back pain laterality: bilateral Sciatica presence: without sciatica Qualified Code(s): M54.50 - Low back pain, unspecified Category: Medical Code(s): M54.50 - Low back pain, unspecified (4) Degenerative disc disease, lumbar: Status: Acute Category: Medical Code(s): M51.369 - Other intervertebral disc degeneration, lumbar region without mention of lumbar back pain or lower extremity pain Plan I did discuss with the patient due to not having any improvement following this injection I would like to order advanced imaging of an MRI with out contrast of his lumbar spine. Patient has not had any advanced imaging since 2022. I will also order the patient diclofenac 75 mg twice daily. Patient denied any heart or kidney issues. Patient was counseled to discontinue all other NSAIDs while taking this medication and to take it with food to minimize GI upset. Patient will return to clinic in 1 month for reevaluation of symptoms and plan of care. Patient has been instructed to contact the clinic with any concerns before the next appointment. Dr. Hogue has reviewed this note and agrees with this plan of care. This note was dictated using voice recognition software and make contain errors or omissions. All injections are used with Lidocaine, Bupivacaine and dexamethasone. Occasionally urine drug screen is needed to verify patient's compliance with our office pain contract. This is ordered based off specific treatments related to chronic pain with the potential to abuse certain medications.
== END 2025-03-22 23:59 | disposition home or self-care (01) ==
PROVIDERS: PCP Family Medicine; Visit Provider Nurse Practitioner Family
DX: M51.16 Intervertebral disc disorders with radiculopathy, lumbar region (principal); M47.816 Spondylosis without myelopathy or radiculopathy, lumbar region; Z79.1 Long term (current) use of non-steroidal anti-inflammatories (NSAID)
CPT/HCPCS: 99212; G0463

== ENCOUNTER 2025-03-26 07:34 | Outpatient (CLI) | payer MEDICARE, SELFPAY ==
--- OUTSIDE RECORDS SUMMARY | 2024-05-29 05:00 | XMS_ITS ---
Author Organization [facility] Address [address] [place] [id number] Care Team Providers Care Electronic Parts Salesperson Name Role Phone Harshal Garcia Primary Care Provider [phone] Osman Aparicio Unavailable [phone] Allergies No Known Allergies Results Component Value [...] 0.61 Performing Lab: Notes/Report: Test performed by [facility] [address] [place] [address] , [address], [place] [address] Damon Mireles MD, [employer] CLIA: [id number] Sodium 140 135-145 mmol/L Potassium 4.5 3.5-5.3 [...] 34 Performing Lab: Notes/Report: Test performed by [facility] [address] [place] [address] [address], [place] [address] Damon Mireles MD, [employer] CLIA: [id number] Cholesterol 141 <200 mg/dL Triglycerides 264 <150 [...] Provider Diagnosis [facility] [address] [phone] 05/29/2024 Harshal Garcia Type 2 diabetes elvira [...] [address], [address], [place], [place], [id number], Progress Notes * BENJA SIMSOB:0 1960 (65 yo M)Acc No.[id number]:05/29/2024 Progress Notes Patient: BENJA UGALDE Provider: Franky Garcia M.D. :1960 A ge:64 Y S ex:Male Date:05/29/2024 Address:[address] [place] [address] Subjective: * Chief Complaints: * 1 . [...] G 2211 Complex e/[place], [address] GLUCOSE TEST, 81596 GLYCATED HEMOGLOBIN TEST, Modifiers: QW , 24760 Urinalysis, no micro, 35705 CBC WITH AUTO DIFF * Follow Up: 6 Months * Images: Billing Information: * Visit Code: 10348 Office Visit, Est Pt., Level 4. * Procedure Codes: G2211 Complex e/[place]. [address] GLUCOSE TEST. 40552 GLYCATED HEMOGLOBIN TEST. Modifiers: QW 37076 Urinalysis, no micro. 26142 CBC WITH AUTO DIFF. * Electronic signature of Peggy Garcia MD on 03/26/2025 at 07:36 AM EDT Sign off status: Pending * Provider: Franky Garcia M.D. Date: 0 05/29/2024 Generated for Candido ram/Katherine/eTransmitting on: 0 03/26/2025 07:36 AM EDT History and Physical Notes * [...]
--- OUTSIDE RECORDS SUMMARY | 2024-11-24 05:00 | XMS_ITS ---
Author Organization [facility] Address [address] [facility] [address] [place] [id number] Care Team Providers Care Early Childhood Assistant Name Role Phone Harshal Garcia Primary Care Provider Osman Aparicio Unavailable [phone] Allergies No Known Allergies Results Component Value Reference Range Notes Glucose (In-House) Reviewed date:11/26/2024 11:48:02 AM Interpretation:130 Performing Lab: Notes/Report: 130 blood glucose 130 74 - 106 mg/dL P-Comprehensive Metabolic Pa jeanne (CMP) Reviewed date:11/26/2024 11:48:01 AM Interpretation:gluc 129, Cr 0.69 Performing Lab: Notes/Report: Test performed by [employer] [facility]0 [facility] , [address], [place] [address] Damon Mireles MD, Pharmaceutical Analyst CLIA: [id number] Sodium 141 135-145 mmol/L Potassium 4.8 3.5-5.3 [...] Interpretation:7.6 Performing Lab: Notes/Report: Test performed by [employer] [address] [place] [address] [place] [address] Damon Mireles MD, Pharmaceutical Analyst CLIA: [id number] Hemoglobin A1C 7.6 <5.7 % The following HbA1c ranges recommended by the [place] Diabetes Association (ADA) may be used as an aid in the diagnosis of diabetes mellitus. HbA1c Suggested Diagnosis >=6.5% Diabetic 5.7% - 6.4% Pre-Diabetic <5.7% Non-Diabetic P-Lipid Panel Reviewed date:11/26/2024 11:48:02 AM Interpretation:trigs 211, hdl 38 Performing Lab: Notes/Report: Test performed by [employer] [address] [place] [address] Herbert Covarrubias , [place] [address] Damon Mireles MD, Pharmaceutical Analyst CLIA: [id number] Cholesterol 140 <200 mg/dL Triglycerides 211 <150 [...] Interpretation:Normal Performing Lab: Notes/Report: Test performed by [employer] [address] [place], [place] [address] , [address], [place] [address] Damon Mireles MD, Pharmaceutical Analyst CLIA: [id number] TSH reflex to FT4 1.04 0.43-5.25 mU/L P-Microalbumin/Creatinine, R andom Urine Sample Reviewed date:11/26/2024 11:48:02 AM Interpretation:a/c 41 Performing Lab: Notes/Report: Test performed by [employer] [address] [place] [address] , [address], [place] [address] Damon Mireles MD, Pharmaceutical Analyst CLIA: [id number] Albumin/Creatinine Ratio, Urine 41 0-30 ug/m g Microalbumin, Urine, Random 2.1 Creatinine, Urine 50.9 P-Uric Acid Reviewed date:11/26/2024 11:48:02 AM Interpretation:Normal Performing Lab: Notes/Report: Test performed by [employer] [address] [place] [address] [address], [place] [address] Damon Mireles MD, Pharmaceutical Analyst CLIA: [id number] Uric Acid 4.0 3.4-8.0 mg/dL Estimated Average Glucose Reviewed date:11/26/2024 11:48:02 AM Interpretation:171 Performing Lab: Notes/Report: Test performed by [employer] [address] [place] [address] Dr. [place] [id number] Damon Mireles MD, Pharmaceutical Analyst CLIA: [id number] Estimated Average Glucose (eAG) 171 Estimated Average [...] Duration: 90 days 04/26/2024 Active Vital Signs Weight 265.6 lbs 11/24/2024 Blood pressure systolic 130 mm Hg 11/25/19 25 Blood pressure diastolic 70 mm Hg 025 Heart Rate 82 /min 11/24/2024 Height 65.5 in 11/24/2024 BMI 43.52 kg/m2 11/24/2024 Encounters Encounter Location Date Provider Diagnosis [facility] 1210 [facility] 36 [facility] [address] [place] [id number] 11/24/2024 Harshal Garcia Type 2 diabetes elvira [...] Lee ry, 05/28/2025 09:15:00 AM, [address] [facility] [address] [facility], [address], [place], [phone], Progress Notes * BENJA SIMSOB:0 1960 (65 yo M)Acc No.[id number]:11/24/2024 Progress Notes Patient: Vladimir BENJA VAN Provider: Franky Garcia M.D. :1960 A ge:64 Y S ex:Male Date:11/24/2024 Address:[address] [place] [address] Subjective: * Chief Complaints: * 1 . [...] by Creatinine 102 >59 - mL/min/1.73m2 * Tam,Constanza 11/26/2024 11:47 :49 AM >See phone encounter ?LAB: P-Hemoglobin A1C (Collection Date & Time - 11/24/2024 01:35 PM)?7.6* Value Reference Range H emoglobin A1C 7.6 H <5.7 - % * Constanza Turcios 11/26/2024 11:47 :49 AM [...] bekah Acid 4.0 3.4-8.0 - mg/dL * Constanza Turcios 11/26/2024 11:47 :49 AM >See phone encounter * Labs: * L ab: Estimated Average Glucose (Collection Date & Time - 11/24/2024 01:35 PM) 1 71 Value Reference Range E stimated Average Glucose 171 - mg/dL * [facility], IT support 11/25/2024 04:20:14 : This order was created by the Interface. Constanza Turcios 11/26/2024 11:47:49 AM >See phone encounter * Procedure Codes: G 2211 Complex e/[place], [address] GLUCOSE TEST, 3051F HG A1C>EQUAL 7.0%<8.0%, G8752 MOST RECENT SYSTOLIC BP < 140MM HG, G8754 MOST RECENT DIASTOLIC BP < 90MM HG * Follow Up: 6 Months * Images: Billing Information: * Visit Code: 07423 Office Visit, Est Pt., Level 4. * Procedure Codes: G2211 Complex e/[place]. [address] GLUCOSE TEST. 3051F HG A1C>EQUAL 7.0%<8.0%. G8752 MOST RECENT SYSTOLIC BP < 140MM HG. G8754 MOST RECENT DIASTOLIC BP < 90MM HG. * Electronic signature of Peggy Garcia MD on 03/26/2025 at 07:36 AM EDT Sign off status: Pending * Provider: Franky Garcia M.D. Date: 0 11/24/2024 Generated for Candido ram/Katherine/eTransmitting on: 0 03/26/2025 [...]
--- OUTSIDE RECORDS SUMMARY | 2025-02-05 08:30 | XMS_ITS | Encounter Summary ---
Author Organization [place] [address] Care Team Providers Care Commercial Lawn Specialist Name Role Phone Harshal Garcia MD Primary Care Provider [phone] Reason for Visit * Reason Comments Follow-up Encounter Details Date Type Department Care Team (Late st Contact Info) Description 02/05/2025 8:30 AM EDT Office Visit [facility] [place] [facility] [place] [address] [place] [address] Malachi Schafer MD [address] [place] [address] Diastolic dysfunction (Primary Dx); Mixed hyperlipidemia; Primary [...] file. Current Outpatient Medications: ACCU-CHEK SOFTCLIX LANCETS [facility], USE TO TEST BLOOD SUGAR TWICE DAILY, Disp: , Rfl: allopurinoL (ZYLOPRIM) 300 mg Oral Tablet, Take by mouth daily., Disp: , Rfl: BLOOD SUGAR DIAGNOSTIC [facility], .COMPLEX, Disp: , Rfl: ertugliflozin (STEGLATRO) 15 mg Oral Tablet, Take 15 mg by mouth daily. (Patient not taking: Reported on 01/31/2024), Disp: , Rfl: fluticasone propionate (FLONASE) 50 mcg/actuation Nasl [place], Suspension, Daily, Disp: , Rfl: JARDIANCE 25 [...] , Rfl: oxymetazoline (AFRIN) 0.05 % Nasl [place], Non-Aerosol, 2 Sprays by Nasal route 2 [...] 45-50% with mild global hypokinesis Echo 07/21 ([facility]): TDS. EF 55%. Mild LVH. Grade I [...] - 02/05/2025 8:30 AM EDT Please call [phone] in May to schedule appointment between November [...] 01/17/2025 added in this encounter Care Teams Commercial Lawn Specialist Relationship Specialty Start Date End Date Harshal Garcia MD [address] [place] [address] [place] [id number] PCP - General Family Medicine 08/05/18 documented as of this encounter
--- OUTSIDE RECORDS SUMMARY | 2025-02-26 06:30 | XMS_ITS ---
Author Organization [facility] Address [address] [place] [phone] Care Team Providers Care Director Internal Communications Name Role Phone Harshal Garcia Primary Care Provider Osman Aparicio Unavailable [phone] Allergies No Known Allergies Results Component Value [...] as directed.; Duration: 25 Active Vital Signs Weight 256 lbs 02/26/2025 Blood pressure systolic 122 mm Hg 02/27/20 25 Blood pressure diastolic 70 mm Hg 025 Heart Rate 79 /min 02/26/2025 Height 65.5 in 02/26/2025 BMI 41.95 kg/m2 02/26/2025 Encounters Encounter Location Date Provider Diagnosis [facility] [address] [facility] 36 [facility] [address] [place], [place] [phone] 02/26/2025 Harshal Garcia Pain, upper back M54 .9 and Pain [...] test results, Reason: Provider Name:Harshal Lee ry, 05/28/2025 09:15:00 AM, [address] [facility] 36 [facility], [address], [place], [place], [phone], Progress Notes * BENJA SIMSOB:0 1960 (65 yo M)Acc No.[id number]:02/26/2025 Progress Notes Patient: BENJA UGALDE Provider: Franky Garcia M.D. :1960 A ge:65 Y S ex:Male Date:02/26/2025 Address:[address] [place] [address] Subjective: * Chief Complaints: * 1 . [...] . * Hospitalization/Major Diagno stic Procedure: P mikhail . * Family History: F ather: . [...] Temp: 97.9, BP: 122/70, HR: 79, Nurse: tosha, Ht: 65.5, BMI:41.95. * Examination: G eneral [...] * Images: Billing Information: * Visit Code: 65741 Office Visit, Est Pt., Level 3. * [...] Pending * Provider: Franky Garcia M.D. Date: 02/26/2025 Generated for Candido ram/Katherine/Rosalinda on: 03/26/2025 07:36 AM EDT History and Physical [...]
--- NOTE | 2025-03-26 | MR_ITS ---
FINAL REPORT TECHNIQUE: Multiplanar and multisequence imaging of the lumbar spine was obtained without contrast. CLINICAL HISTORY: LBP fall x 2 year COMPARISON: 08/12/2023 FINDINGS: There is normal alignment of the lumbar vertebral bodies. There is a chronic superior endplate fracture involving the T12 level, which is stable since the prior exam of 2022. The spinal cord ends at the level of L2. There is normal signal intensity within the substance of the distal spinal cord. No acute bone marrow edema or pathologic marrow replacement. No acute paraspinal abnormality is identified. L1-2: There is no focal disc herniation, central canal stenosis or neuroforaminal narrowing. L2-3: An annular bulge is present with mild facet osteoarthropathy. There is mild left neural foraminal narrowing, without evidence of central canal stenosis. L3-4: There is no focal disc herniation, central canal stenosis or neuroforaminal narrowing. L4-5: A mild annular bulge is present with mild facet osteoarthropathy, no central canal stenosis, and mild left neural foraminal narrowing. L5-S1: An annular bulge is present, with bilateral facet osteoarthropathy, no central canal stenosis. There is moderate right and mild left neural foraminal narrowing. IMPRESSION: Lumbar degenerative change is present, most pronounced at the L5-S1 level as described. Reviewed, Interpreted and Dictated by Josseline Allen MD Transcribed by Natali Castillo Authenticated and [facility]
--- OUTSIDE RECORDS SUMMARY | 2025-03-26 07:36 | XMS_ITS | Clinical Summary ---
Author Organization [facility] Address [address] [place], [place] [address] Phone Care Team Providers Care Population Health Manager Name Role Phone Harshal Garcia MD Primary Care Provider [phone] Allergies No known active allergies Medications metFORMIN [...] daily. Active oxymetazoline (AFRIN) 0.05 % Nasl Hamlin, Non-Aerosol 2 Sprays by Nasal route 2 times daily. Active BLOOD SUGAR DIAGNOSTIC [facility] .COMPLEX 02/17/2023 Act isrrael JARDIANCE 25 mg Oral Tablet Take 25 mg by mouth daily. 2024 Active fluticasone propionate (FLONASE) 50 mcg/actuation Nasl Hamlin, Suspension Daily 08/31/2022 Active ACCU-CHEK SOFTCLIX LANCETS [facility] USE TO TEST BLOOD SUGAR TWICE [...] 8:30 AM EDT Office [place] [address] Malachi Schafer MD Diastolic dysfunction (Primary Dx); [...] MEDICARE HMO MR [employer] MEDICARE HMO MR [place] [phone] Care Teams Population Health Manager Relationship Specialty Start Date End Date Harshal Garcia MD [address] [place] [address] [place] [phone] PCP - General Family Medicine 08/05/18
--- OUTSIDE RECORDS SUMMARY | 2025-03-26 07:36 | XMS_ITS | Patient Health Record ---
Author Organization [facility] Address [address] [place] [id number] Care Team Providers Care Technical Services Analyst Name Role Phone Harshal Garcia Primary Care Provider Osman Aparicio Unavailable [phone] Allergies No Known Allergies Results Component Value Reference Range Notes X ray : Spine, thoracic spin e Reviewed date:02/28/2025 05:02:40 PM Interpretation:mild degenerative change Performing Lab: Notes/Report: mild degenerative change Glucose (In-House) Reviewed date:11/26/2024 11:48:02 AM Interpretation:130 Performing Lab: Notes/Report: 130 blood glucose 130 74 - 106 mg/dL P-Comprehensive Metabolic Pa jeanne ([facility]) Reviewed date:11/26/2024 11:48:01 AM Interpretation:gluc 129, Cr 0.69 Performing Lab: Notes/Report: Test performed by [facility] , [address], [place] [address] Damon Mireles MD, Recruitment And Outreach Assistant CLIA: [id number] Sodium 141 135-145 mmol/L Potassium 4.8 3.5-5.3 [...] Interpretation:7.6 Performing Lab: Notes/Report: Test performed by [facility] [address] [place], [place] [address] [address], [place] [address] Damon Mireles MD, Recruitment And Outreach Assistant CLIA: [id number] Hemoglobin A1C 7.6 <5.7 % The following HbA1c ranges recommended by the [place] [employer] (ADA) may be used as an aid in the diagnosis of diabetes mellitus. HbA1c Suggested Diagnosis >=6.5% Diabetic 5.7% - 6.4% Pre-Diabetic <5.7% Non-Diabetic P-Lipid Panel Reviewed date:11/26/2024 11:48:02 AM Interpretation:trigs 211, hdl 38 Performing Lab: Notes/Report: Test performed by [facility] [address] [place], [place] [address] [address], [place] [address] Damon Mireles MD, Recruitment And Outreach Assistant CLIA: [id number] Cholesterol 140 <200 mg/dL Triglycerides 211 <150 [...] Interpretation:Normal Performing Lab: Notes/Report: Test performed by [facility] [address] [place] [address] , [address], [place] [address] Damon Mireles MD, Recruitment And Outreach Assistant CLIA: [id number] TSH reflex to FT4 1.04 0.43-5.25 mU/L P-Microalbumin/Creatinine, R andom Urine Sample Reviewed date:11/26/2024 11:48:02 AM Interpretation:a/c 41 Performing Lab: Notes/Report: Test performed by [facility], [address] , [address], [place] [id number] Damon Mireles MD, Recruitment And Outreach Assistant CLIA: [id number] Albumin/Creatinine Ratio, Urine 41 0-30 ug/mg Microalbumin, Urine, Random 2.1 Creatinine, Urine 50.9 P-Uric Acid Reviewed date:11/26/2024 11:48:02 AM Interpretation:Normal Performing Lab: Notes/Report: Test performed by [facility] [address] [place] [address] , [address], [place] [address] Damon Mireles MD, Recruitment And Outreach Assistant CLIA: [id number] Uric Acid 4.0 3.4-8.0 mg/dL Estimated Average Glucose Reviewed date:11/26/2024 11:48:02 AM Interpretation:171 Performing Lab: Notes/Report: Test performed by [facility] [address] [place] [address] , [place] [address] Damon Mireles MD, Recruitment And Outreach Assistant CLIA: [id number] Estimated Average Glucose (eAG) 171 Estimated Average [...] 0.61 Performing Lab: Notes/Report: Test performed by [facility] [address] [place] [address] , [address], [place] [address] Damon Mireles MD, Recruitment And Outreach Assistant CLIA: [id number] Sodium 140 135-145 mmol/L Potassium 4.5 3.5-5.3 [...] 34 Performing Lab: Notes/Report: Test performed by [facility] [address] [place] [address] , [address], [place] [address] Damon Mireles MD, Recruitment And Outreach Assistant CLIA: [id number] Cholesterol 141 <200 mg/dL Triglycerides 264 <150 [...] Results: 54 Units: mg/dL % Change: -34% Urinalysis - Inhouse Reviewed date:04/26/2024 04:19:20 PM [...] W/U Status Risk Notes Problem Essential hypertension (02104250) Essential hypertension (I10) Active confirmed Problem Morbid obesity (706794933) Morbid obesity (E66.01) Active confirmed Problem Pure hypercholesterolemia (446426591) Pure hypercholesterolemia (E78.0) Active confirmed Problem Degeneration of lumbar intervertebral disc (70293992) Lumbar degenerative disc disease (M51.36) Active confirmed Problem Urinary hesitancy (0032750) Urinary hesitancy (R39.11) Active confirmed Problem Type II diabetes mellitus without complication (165853878) Type 2 diabetes mellitus without complication (E11.9) Active confirmed Problem Obstructive sleep apnea syndrome (20071339) Obstructive sleep apnea syndrome (G47.33) Active confirmed Problem Gout (98036429) Gout, unspecifie d cause, unspecified chronicity, unspecified site (M10.9) Active confirmed Problem Tinnitus of right ea r (1071542752192) Tinnitus of right ear (H93.11) Active confirmed Problem Pure hypercholesterolemia (580168962) Pure hypercholesterolemia (E78.00) Active confirmed Problem Pure hypercholesterolemia (490666064) Pure hypercholesterolemia, unspecified (E78.00) Active confirmed Problem Hearing loss (15305283) Hearing loss, unspecified hearing loss type, unspecified laterality (H91.90) Active confirmed Problem Allergic rhinitis (89742956) Non-seasonal allergic rhinitis, unspecified trigger (J30.89) Active confirmed Problem Type II diabetes mellitus without complication (587721372) Type 2 diabetes mellitus without complication, unspecified whether fpc insulin use (E11.9) Active confirmed Vital Signs Heart Rate 79 /min 02/26/2025 Blood pressure diastolic 70 mm Hg 02/26/2025 Height 65.5 in 02/26/2025 Blood pressure systolic 122 mm Hg 02/26/2025 Weight 256 lbs 02/26/2025 BMI 41.95 kg/m2 02/26/2025 Encounters Encounter Location Date Provider Diagnosis [facility] [address] [place] [id number] 04/26/2024 Harshal [place] Urinary hesitancy R3 9.11 and Pelvic pain R10.2 [facility] [address] [place] [id number] 05/29/2024 Harshal [place] Type 2 diabetes elvira itus without complication E11.9 ; Essential hypertension I10 ; Pure hypercholesterolemia, unspecified E78.00 ; Left-sided low back pain without sciatica, unspecified chronicity M54.50 ; Recent urinary tract infection Z87.440 and Urinary hesitancy R39.11 [facility] [address] [place], [place] [id number] 11/24/2024 Harshal [place] Type 2 diabetes elvira itus without complication E11.9 ; Essential hypertension I10 ; Pure hypercholesterolemia, unspecified E78.00 and Gout, unspecified cause, unspecified chronicity, unspecified site M10.9 [facility] [address] [place] [id number] 02/26/2025 Harshal [place] Pain, upper back M54 .9 and Pain in left elbow M25.522 [facility] [address] [place] [id number] 03/13/2025 Harshal [place] [facility] [address] [place], [place] [id number] 05/30/2024 Harshal [place] [facility] [address] [place] [id number] 07/04/2024 Osman Aparicio Urinary hesitancy R3 9.11 [facility] [address] [place] [id number] 07/25/2024 Harshal [place] Pure hypercholestero lemia E78.00 and Essential hypertension I10 [facility] [address] [place], [place] [id number] 09/29/2024 Harshal [place] Type 2 diabetes elvira itus without complication, unspecified whether director long term care insulin use E11.9 [facility] [address] [place], [place] [id number] 11/26/2024 Harshal [place] [facility] [address] [place], [place] [id number] 12/18/2024 Harshal [place] Type 2 diabetes elvira itus without complication E11.9 [facility] [address] [place] [id number] 02/14/2025 Harshalcarrol Garcia [facility] [address] [place] [id number] 02/28/2025 Harshal Garcia Assessments Encounter Date Diagnosis (ICD Code) Assessment Notes Treatment Notes Treatment Clinical Notes Section Notes 04/26/2024 Urinary hesitancy (ICD-10 - R39.11) 04/26/2024 Pelvic pain (ICD-10 - R10.2) Patient seems to have a UTI 05/29/2024 Essential hypertensi on (ICD-10 - I10) 05/29/2024 Type 2 diabetes mellitus without complication (ICD-10 - E11.9) 07/25/2024 Pure hypercholesterolemia (ICD-10 - E78.00) 11/24/2024 Essential hypertensi on (ICD-10 - I10) 11/24/2024 Type 2 diabetes mellitus without complication (ICD-10 - E11.9) 12/18/2024 Type 2 diabetes mellitus without complication (ICD-10 - E11.9) 02/26/2025 Pain in left elbow (ICD-10 - M25.522) 02/26/2025 Pain, upper back (ICD-10 - M54.9) heating pad to affected areas 2 to 3 times a day TENS unit OTC recommended 09/29/2024 Type 2 diabetes mellitus without complication, unspecified whether director long term care insulin use (ICD-10 - E11.9) 07/04/2024 Urinary hesitancy (ICD-10 - R39.11) 11/24/2024 Pure hypercholesterolemia, unspecified (ICD-10 - E78.00) 05/29/2024 Pure hypercholesterolemia, unspecified (ICD-10 - E78.00) 07/25/2024 Essential hypertensi on (ICD-10 - I10) 05/29/2024 Left-sided low back pain without sciatica, unspecified chronicity (ICD-10 - M54.50) 11/24/2024 Gout, unspecified cause, unspecified chronicity, unspecified site (ICD-10 - M10.9) 05/29/2024 Recent urinary tract infection (ICD-10 - Z87.440) 05/29/2024 Urinary hesitancy (ICD-10 - R39.11) Plan Of Treatment Next Appt Details Provider Name:Harshal Stanleyracheal ry, 05/28/2025 09:15:00 AM, [address], [place], [place], [id number], Insurance Providers Payer Name Payer Address Payer Phone Subscriber Number Group Number Insured Name Patient Relationship to Insured Coverage Start Date Coverage End Date [employer] [address] [address] [place], [place] [id number] [phone] [id number] BENJA GARCÍA Self - patient is the [...]
--- OUTSIDE RECORDS SUMMARY | 2025-03-26 07:37 | XMS_ITS | Encounter Summary ---
Author Organization [facility] [place] [address] Care Team Providers Care Acid Pump Operator Name Role Phone Harshal Garcia MD Primary Care Provider [phone] Encounter Details Date Type Department Care Team [...] on filedocumented in this encounter Care Teams Acid Pump Operator Relationship Specialty Start Date End Date Harshal Garica MD [address] [place] [phone] PCP - General Family Medicine 08/05/18 documented as of this encounter
== END 2025-03-26 23:59 | disposition home or self-care (01) ==
LOC: RAD 07:34
PROVIDERS: PCP Family Medicine; Visit Provider Nurse Practitioner Family
DX: M47.26 Other spondylosis with radiculopathy, lumbar region; M47.817 Spondylosis without myelopathy or radiculopathy, lumbosacral region; M48.54XA Collapsed vertebra, not elsewhere classified, thoracic region, initial encounter for fracture
CPT/HCPCS: 72148

== ENCOUNTER 2025-04-13 11:13 | Outpatient (POV) | payer MEDICARE, SELFPAY ==
--- OUTSIDE RECORDS SUMMARY | 2024-11-24 05:00 | XMS_ITS ---
Author Organization [facility] Address [address] [facility] [address] [place] [id number] Care Team Providers Care Color Worker Name Role Phone Harshal Garcia Primary Care Provider [phone] Osman Aparicio Unavailable [phone] Allergies No Known Allergies Results Component Value Reference Range Notes Glucose (In-House) Reviewed date:11/26/2024 11:48:02 AM Interpretation:130 Performing Lab: Notes/Report: 130 blood glucose 130 74 - 106 mg/dL P-Comprehensive Metabolic Pa jeanne (CMP) Reviewed date:11/26/2024 11:48:01 AM Interpretation:gluc 129, Cr 0.69 Performing Lab: Notes/Report: Test performed by [employer] [facility]0 [facility] , [address], [place] [address] Damon Mireles MD, Director Of Donor Relations CLIA: [id number] Sodium 141 135-145 mmol/L Potassium 4.8 3.5-5.3 [...] Interpretation:7.6 Performing Lab: Notes/Report: Test performed by [employer] [facility] [address] [place] [address] [place] [address] Damon Mireles MD, Director Of Donor Relations CLIA: [id number] Hemoglobin A1C 7.6 <5.7 % The following HbA1c ranges recommended by the [place] Diabetes Association (ADA) may be used as an aid in the diagnosis of diabetes mellitus. HbA1c Suggested Diagnosis >=6.5% Diabetic 5.7% - 6.4% Pre-Diabetic <5.7% Non-Diabetic P-Lipid Panel Reviewed date:11/26/2024 11:48:02 AM Interpretation:trigs 211, hdl 38 Performing Lab: Notes/Report: Test performed by [employer] [facility] [address] [place] [address] Herbert Covarrubias , [place] [address] Damon Mireles MD, Director Of Donor Relations CLIA: [id number] Cholesterol 140 <200 mg/dL Triglycerides 211 <150 [...] Interpretation:Normal Performing Lab: Notes/Report: Test performed by [employer] [facility] [address] [place], [place] [address] [place] , [address], [place] [address] Damon Mireles MD, Director Of Donor Relations CLIA: [id number] TSH reflex to FT4 1.04 0.43-5.25 mU/L P-Microalbumin/Creatinine, R andom Urine Sample Reviewed date:11/26/2024 11:48:02 AM Interpretation:a/c 41 Performing Lab: Notes/Report: Test performed by [employer] [address] [place] [address] , [address], [place] [address] Damon Mireles MD, Director Of Donor Relations CLIA: [id number] Albumin/Creatinine Ratio, Urine 41 0-30 ug/m g Microalbumin, Urine, Random 2.1 Creatinine, Urine 50.9 P-Uric Acid Reviewed date:11/26/2024 11:48:02 AM Interpretation:Normal Performing Lab: Notes/Report: Test performed by [employer] [facility] [address] [place] [address] [address], [place] [address] Damon Mireles MD, Director Of Donor Relations CLIA: [id number] Uric Acid 4.0 3.4-8.0 mg/dL Estimated Average Glucose Reviewed date:11/26/2024 11:48:02 AM Interpretation:171 Performing Lab: Notes/Report: Test performed by [facility] [facility] [address] [place] [address] Dr. [place] [id number] Damon Mireles MD, Director Of Donor Relations CLIA: [id number] Estimated Average Glucose (eAG) 171 Estimated Average [...] Encounter Location Date Provider Diagnosis [facility] 1210 [facility] 36 [facility] [address] [place] [id number] 11/24/2024 Harshal Garcia Type 2 diabetes elvira [...] Up: 6 Months, Reason: Provider Name:Harshal carvajal, 05/03/2025 09:30:00 AM, [address] [facility] 36 [facility], [facility] [address], [place], [place], [id number], Provider Name:Harshal carvajal, 05/28/2025 09:15:00 AM, [address] [facility] 36 [facility], [facility] [address], [place], [id number], Progress Notes * BENJA SIMSOB:0 1960 (65 yo M)Acc No.[id number]:11/24/2024 Progress Notes Patient: BENJA UGALDE Provider: Franky Garcia M.D. :1960 A ge:64 Y S ex:Male Date:11/24/2024 Address:[address] [place] [address] Subjective: * Chief Complaints: * 1 . [...] stimated Average Glucose 171 - mg/dL * [facility], IT support 11/25/2024 04:20:14 : This order was created by the Interface. Constanza Turcios 11/26/2024 11:47:49 AM >See phone encounter * Procedure Codes: G 2211 Complex e/[place], [address] GLUCOSE TEST, 3051F HG A1C>EQUAL 7.0%<8.0%, G8752 MOST RECENT SYSTOLIC BP < 140MM HG, G8754 MOST RECENT DIASTOLIC BP < 90MM HG * Follow Up: 6 Months * Images: Billing Information: * Visit Code: 10860 Office Visit, Est Pt., Level 4. * Procedure Codes: G2211 Complex e/[place]. [address] GLUCOSE TEST. 3051F HG A1C>EQUAL 7.0%<8.0%. G8752 MOST RECENT SYSTOLIC BP < 140MM HG. G8754 MOST RECENT DIASTOLIC BP < 90MM HG. * Electronic signature of Peggy Garcia MD on 04/13/2025 at 11:16 AM EDT Sign off status: Pending * Provider: Franky Garcia M.D. Date: 0 11/24/2024 Generated for Candido ram/Katherine/Sitasmitting on: 0 04/13/2025 11:16 AM EDT History and Physical Notes * [...]
--- OUTSIDE RECORDS SUMMARY | 2025-02-26 06:30 | XMS_ITS ---
Author Organization [facility] Address [address] [place] [phone] Care Team Providers Care Handkerchief Maker Name Role Phone Harshal Garcia Primary Care Provider Osman Aparicio Unavailable [phone] Allergies No Known Allergies Results Component Value [...] 02/26/2025 Encounters Encounter Location Date Provider Diagnosis [facility] [address] [place] [address] 36 [facility] [address] [place] [phone] 02/26/2025 Harshal Garcia Pain, upper back M54 [...] repo rt test results, Reason: Provider Name:Harshal carvajal, 05/03/2025 09:30:00 AM, [address] [place] [address], [address], [place], [id number], Provider Name:Harshal carvajal, 05/28/2025 09:15:00 AM, [address] [place] [address] [address], [place], [phone], Progress Notes * LEVIBENJA TristanKristinOB:0 1960 (65 yo M)Acc No.[id number]:02/26/2025 Progress Notes Patient: BENJA UGALDE Provider: Franky Garcia M.D. :1960 A ge:65 Y S ex:Male Date:02/26/2025 Address:[address] [place], [place] [phone] Subjective: * Chief Complaints: * 1 . [...] * Images: Billing Information: * Visit Code: 18843 Office Visit, Est Pt., Level 3. * [...] M.D. Date: 0 02/26/2025 Generated for Candido ram/Katherine/Mitraitting on: 0 04/13/2025 11:16 AM EDT History [...]
--- OUTSIDE RECORDS SUMMARY | 2025-03-28 11:30 | XMS_ITS ---
Author Organization [facility] Address [facility] [address] [place] [id number] Care Team Providers Care Tobacco Packer Name Role Phone Harshal Garcia Primary Care Provider [phone] Osman Aparicio Unavailable [phone] Allergies No Known Allergies Results Component Value [...] 03/28/2025 Encounters Encounter Location Date Provider Diagnosis [facility] 1210 [facility] 36 [facility] [address] [place] [id number] 03/28/2025 Harshal Garcia Dysuria R30.0 Assessments Encounter [...] to repo rt progress, Reason: Provider Name:Harshal carvajal, 05/03/2025 09:30:00 AM, 1210 [facility] 36 [facility], [address], [place], [id number], Provider Name:Harshal carvajal, 05/28/2025 09:15:00 AM, 1210 [facility] 36 [facility] [address], [place], [phone], Progress Notes * BENJA SIMSOB:0 1960 (65 yo M)Acc No.[id number]:03/28/2025 Progress Notes Patient: BENJA UGALDE Provider: Franky Garcia M.D. :1960 A ge:65 Y S ex:Male Date:03/28/2025 Address:[address] [place], [place] [id number] Subjective: * Chief Complaints: * 1 . [...] Temp: 98.7, BP: 130/70, HR: 93, Nurse: pe, Ht: 65.5, BMI:40.57. * Examination: G eneral [...] * Images: Billing Information: * Visit Code: 38657 Office Visit, Est Pt., Level 3. * [...] M.D. Date: 0 03/28/2025 Generated for Candido ram/Katherine/Rosalinda on: 0 04/13/2025 11:16 AM EDT History [...]
--- OUTSIDE RECORDS SUMMARY | 2025-04-13 11:16 | XMS_ITS | Patient Health Record ---
Author Organization [facility] Address [address] [place] [id number] Care Team Providers Care Job Developer Name Role Phone Harshal Garcia Primary Care Provider [phone] Osman Aparicio Unavailable [phone] Allergies No Known Allergies Results Component Value Reference Range Notes X ray : Spine, thoracic spin e Reviewed date:02/28/2025 05:02:40 PM Interpretation:mild degenerative change Performing Lab: Notes/Report: mild degenerative change Glucose (In-House) Reviewed date:11/26/2024 11:48:02 AM Interpretation:130 Performing Lab: Notes/Report: 130 blood glucose 130 74 - 106 mg/dL P-Comprehensive Metabolic Pa jeanne ([facility]) Reviewed date:11/26/2024 11:48:01 AM Interpretation:gluc 129, Cr 0.69 Performing Lab: Notes/Report: Test performed by [facility] , [address], [place] [address] Damon Mireles MD, Mussel Opener CLIA: [id number] Sodium 141 135-145 mmol/L Potassium 4.8 3.5-5.3 [...] 0.3 <0.2-1.2 mg/dL A/G Ratio 2.0 1.1-2.5 P-Lipid Panel Reviewed date:11/26/2024 11:48:02 AM Interpretation:trigs 211, hdl 38 Performing Lab: Notes/Report: Test performed by [facility] [address] , [place] [address] Damon Mireles MD, Mussel Opener CLIA: [id number] Cholesterol 140 <200 mg/dL Triglycerides 211 <150 [...] Interpretation:Normal Performing Lab: Notes/Report: Test performed by [facility] [address] [place], [place] [address] [place] , [address] , [place] [address] Damon Mireles MD, Mussel Opener CLIA: [id number] TSH reflex to FT4 1.04 0.43-5.25 mU/L P-Microalbumin/Creatinine, R andom Urine Sample Reviewed date:11/26/2024 11:48:02 AM Interpretation:a/c 41 Performing Lab: Notes/Report: Test performed by [facility] [address] [place] [address] , [address], [place] [address] Damon Mireles MD, Mussel Opener CLIA: [id number] Albumin/Creatinine Ratio, Urine 41 0-30 ug/mg Microalbumin, Urine, Random 2.1 Creatinine, Urine 50.9 P-Uric Acid Reviewed date:11/26/2024 11:48:02 AM Interpretation:Normal Performing Lab: Notes/Report: Test performed by [facility] [address] [place], [place] [address] [place] , [address], [place] [address] Damon Mireles MD, Mussel Opener CLIA: [id number] Uric Acid 4.0 3.4-8.0 mg/dL Urinalysis - Inhouse Reviewed date:04/26/2024 04:19:20 PM Interpretation: Performing Lab: Notes/Report: Color/Clarity yellow/clear Leuk neg Nitrite neg Urobili 3.2 Protein neg pH 5.5 Blood trace-intact Sp. Gr. 1.010 Ketone 1+ Bili neg Gluc 2+ Estimated Average Glucose Reviewed date:11/26/2024 11:48:02 AM Interpretation:171 Performing Lab: Notes/Report: Test performed by [facility] [address] [place], [place] [address] [place] , [address], [place] [address] Damon Mireles MD, Mussel Opener CLIA: [id number] Estimated Average Glucose (eAG) 171 Estimated Average Glucose (eAG) is calculated using the equation eAG = (28.7 x HbA1c) - 46.7 based on the guidelines established by the ADA. If the patient has certain diseases including kidney disease, sickle cell anemia, thalassemia, or is taking medications such as dapsone, erythropoietin, or iron, eAG should not be evaluated. P-Hemoglobin A1C Reviewed date:11/26/2024 11:48:02 AM Interpretation:7.6 Performing Lab: Notes/Report: Test performed by [facility] [address] [place] [address] [address], [place] [address] Damon Mireles MD, Mussel Opener CLIA: [id number] Hemoglobin A1C 7.6 <5.7 % The following HbA1c ranges recommended by the [place] [employer] (ADA) may be used as an aid in the diagnosis of diabetes mellitus. HbA1c Suggested Diagnosis >=6.5% Diabetic 5.7% - 6.4% Pre-Diabetic <5.7% Non-Diabetic TEN-UTI panel Reviewed date:05/04/2024 01:19:03 PM Interpretation:Sensitive Performing Lab: Notes/Report: Sensitive P-Lipid Panel Reviewed date:05/30/2024 10:44:07 AM Interpretation:trigs 264, hdl 34 Performing Lab: Notes/Report: Test performed by [facility] [address] [place], [place] [address] [address], [place] [address] Damon Mireles MD, Mussel Opener CLIA: [id number] Cholesterol 141 <200 mg/dL Triglycerides 264 <150 [...] 0.61 Performing Lab: Notes/Report: Test performed by [facility] [address] [facility] , [address], [place] [address] Damon Mireles MD, Mussel Opener CLIA: [id number] Sodium 140 135-145 mmol/L Potassium 4.5 3.5-5.3 [...] 0.3 <0.2-1.2 mg/dL A/G Ratio 2.3 1.1-2.5 Urinalysis - Inhouse Reviewed date:05/29/2024 10:23:06 AM [...] Notes/Report: glycohemoglobin 7.6% 5 - 6.5 % Urinalysis - Inhouse Reviewed date:03/29/2025 08:07:21 AM Interpretation: Performing Lab: Notes/Report: Color/Clarity Yellow/Clear Leuk Neg Nitrite Neg Urobili 3.2 Protein Neg pH 6.5 Blood Neg Sp. Gr. 1.015 Ketone Neg Bili Neg Gluc 2+ Medications Medication SIG (Take, Route, Frequency, Duration) Notes Start Date End Date Status Accu-Chek Softclix Lancets - USE TO TEST BLOOD SUGAR TWICE DAILY; Duration: 30 Active Jardiance 25 MG TAKE 1 TABLET BY MOUTH DAILY; Duration: 30 Active Multivitamin - 1 tab(s) orally once a day Active Tamsulosin HCl 0.4 MG 1 capsule Orally Once a day; Duration: 90 days Active Fluconazole 100 MG 1 tablet Orally daily; Duration: 5 days Patient to hold Simvastatin x 7 days 03/28/2025 Active Accu-Chek Jaz Plus - Use to check blood sugar twice daily as directed.; Duration: 25 Active Diclofenac Sodium 75 MG 1 tablet as needed Orally Twice a day Active CPAP machine and supplies - as directed as directed Active Pioglitazone HCl 30 MG TAKE 1 TABLET BY MOUTH DAILY; Duration: 90 Active Simvastatin 20 MG Take 1 Tablet by mouth once daily at bedtime.; Duration: 90 Active Allopurinol 300 MG 1 tab(s) orally once a day; Duration: 90 days Active Losartan Potassium 100 MG Take 1 Tablet by mouth once daily.; Duration: 90 Active Spironolactone 25 MG Take 1 Tablet by mouth once daily.; Duration: 90 Active Ozempic (1 MG/DOSE) 4 MG/3ML 1 mg Subcutaneous once weekly 12/18/2024 Active metFORMIN HCl 1000 MG Take 1 Tablet by mouth twice daily with a meal.; Duration: 90 Active Immunizations Vaccine Route Administration [...] W/U Status Risk Notes Problem Essential hypertension (96815474) Essential hypertension (I10) Active confirmed Problem Morbid obesity (630890894) Morbid obesity (E66.01) Active confirmed Problem Pure hypercholesterolemia (725098166) Pure hypercholesterolemia (E78.0) Active confirmed Problem Degeneration of lumbar intervertebral disc (64773436) Lumbar degenerative disc disease (M51.36) Active confirmed Problem Urinary hesitancy (0865952) Urinary hesitancy (R39.11) Active confirmed Problem Type II diabetes mellitus without complication (962468164) Type 2 diabetes mellitus without complication (E11.9) Active confirmed Problem Obstructive sleep apnea syndrome (89248922) Obstructive sleep apnea syndrome (G47.33) Active confirmed Problem Gout (40964393) Gout, unspecifie d cause, unspecified chronicity, unspecified site (M10.9) Active confirmed Problem Tinnitus of right ea r (7408670609288) Tinnitus of right ear (H93.11) Active confirmed Problem Pure hypercholesterolemia (299915310) Pure hypercholesterolemia (E78.00) Active confirmed Problem Pure hypercholesterolemia (805992726) Pure hypercholesterolemia, unspecified (E78.00) Active confirmed Problem Hearing loss (61712259) Hearing loss, unspecified hearing loss type, unspecified laterality (H91.90) Active confirmed Problem Allergic rhinitis (49700428) Non-seasonal allergic rhinitis, unspecified trigger (J30.89) Active confirmed Problem Type II diabetes mellitus without complication (793433556) Type 2 diabetes mellitus without complication, unspecified whether penitentiary insulin use (E11.9) Active confirmed Vital Signs Heart Rate 93 /min 03/28/2025 Blood pressure diastolic 70 mm Hg 03/28/2025 Height 65.5 in 03/28/2025 Blood pressure systolic 130 mm Hg 03/28/2025 Weight 247.6 lbs 03/28/2025 BMI 40.57 kg/m2 03/28/2025 Encounters Encounter Location Date Provider Diagnosis [facility] [address] [place], [place] [id number] 04/26/2024 Harshal [place] Urinary hesitancy R3 9.11 and Pelvic pain R10.2 [facility] [address] [facility] [address] [place], [place] [id number] 05/29/2024 Harshal [place] Type 2 diabetes elvira itus without complication E11.9 ; Essential hypertension I10 ; Pure hypercholesterolemia, unspecified E78.00 ; Left-sided low back pain without sciatica, unspecified chronicity M54.50 ; Recent urinary tract infection Z87.440 and Urinary hesitancy R39.11 [facility] [address] [facility] [address] [place], [place] [id number] 11/24/2024 Harshal [place] Type 2 diabetes elvira itus without complication E11.9 ; Essential hypertension I10 ; Pure hypercholesterolemia, unspecified E78.00 and Gout, unspecified cause, unspecified chronicity, unspecified site M10.9 [facility] [address] [facility] [address] [place], [place] [id number] 02/26/2025 Harshal [place] Pain, upper back M54 .9 and Pain in left elbow M25.522 [facility] [address] [facility] [address] [place], [place] [id number] 03/28/2025 Harshal [place] Dysuria R30.0 [facility] [address] [place], [place] [id number] 05/30/2024 Harshal [place] [facility] [address] [place], [place] [id number] 07/04/2024 Osman Aparicio Urinary hesitancy R3 9.11 [facility] [address] [place], [place] [id number] 07/25/2024 Harshal [place] Pure hypercholestero lemia E78.00 and Essential hypertension I10 [facility] [address] [facility] [address] [place], [place] [id number] 09/29/2024 Harshal [place] Type 2 diabetes elvira itus without complication, unspecified whether penitentiary insulin use E11.9 [facility] [address] [place], [place] [id number] 11/26/2024 Harshal [place] [facility] [address] [place], [place] [id number] 12/18/2024 Harshal [place] Type 2 diabetes elvira itus without complication E11.9 [facility] [address] [place], [place] [id number] 02/14/2025 Harshal [place] [facility] [address] [place], [place] [id number] 02/28/2025 Harshal [place] [facility] [address] [place], [place] [id number] 03/13/2025 Harshal [place] [facility] [address] [place], [place] [id number] 04/03/2025 Harshal [place] Assessments Encounter Date Diagnosis (ICD Code) Assessment [...] 2 diabetes mellitus without complication, unspecified whether switch repairer insulin use (ICD-10 - E11.9) 11/24/2024 Essential hypertensi on (ICD-10 - I10) 11/24/2024 Type 2 diabetes mellitus without complication (ICD-10 - E11.9) 12/18/2024 Type 2 diabetes mellitus without complication (ICD-10 - E11.9) 02/26/2025 Pain in left elbow (ICD-10 - M25.522) 02/26/2025 Pain, upper back (ICD-10 - M54.9) heating pad to affected areas 2 to 3 times a day TENS unit OTC recommended 03/28/2025 Dysuria (ICD-10 - R30.0) 07/25/2024 Essential hypertensi on (ICD-10 - I10) 05/29/2024 Pure hypercholesterolemia, unspecified (ICD-10 - E78.00) 11/24/2024 Pure hypercholesterolemia, unspecified (ICD-10 - E78.00) 05/29/2024 Left-sided low back pain without sciatica, unspecified chronicity (ICD-10 - M54.50) 11/24/2024 Gout, unspecified cause, unspecified chronicity, unspecified site (ICD-10 - M10.9) 05/29/2024 Recent urinary tract infection (ICD-10 - Z87.440) 05/29/2024 Urinary hesitancy (ICD-10 - R39.11) 03/28/2025 Other Hold SImvastatin for the next 7 days Plan Of Treatment Next Appt Details Provider Name:Harshal carvajal, 05/03/2025 09:30:00 AM, 1210 [facility] 36 [facility], [address], [place], [place], [id number], Provider Name:Harshal carvajal, 05/28/2025 09:15:00 AM, 1210 [facility] 36 [facility], [address], [place], [place], [id number], Insurance Providers Payer Name Payer Address Payer Phone Subscriber Number Group Number Insured Name Patient Relationship to Insured Coverage Start Date Coverage End Date [employer] [address] [address] [place], [place] [id number] BENJA GARCÍA Self - patient is the insured MEDICARE PART B [address] [address] [place] [address] [phone] [id number] BENJA GARCÍA Self - patient is the [...]
--- OUTSIDE RECORDS SUMMARY | 2025-04-13 11:16 | XMS_ITS | Clinical Summary ---
Author Organization [facility] Address [address] [facility] [address] [place], [place] [address] Phone Care Team Providers Care Patent Engineer Name Role Phone Harshal Garcia MD Primary Care Provider [phone] Allergies No known active allergies Medications metFORMIN [...] daily. Active oxymetazoline (AFRIN) 0.05 % Nasl Peck, Non-Aerosol 2 Sprays by Nasal route 2 times daily. Active BLOOD SUGAR DIAGNOSTIC [facility] .COMPLEX 02/17/2023 Act isrrael JARDIANCE 25 mg Oral Tablet Take 25 mg by mouth daily. 2024 Active fluticasone propionate (FLONASE) 50 mcg/actuation Nasl Peck, Suspension Daily 08/31/2022 Active ACCU-CHEK SOFTCLIX LANCETS [facility] USE TO TEST BLOOD SUGAR TWICE DAILY [...] 8:30 AM EDT Office [place] [address] Malachi Schafer MD Diastolic dysfunction (Primary Dx); [...] MEDICARE HMO MR [employer] MEDICARE HMO MR [place] [id number] Care Teams Patent Engineer Relationship Specialty Start Date End Date Harshal Garcia MD [address] [place] [address] [place] [id number] PCP - General Family Medicine 08/05/18
[2025-04-13 11:39] VITALS: BP 130/73; PULSE 70; RESP 18; O2SAT 94; BMI 38.8
--- NOTE | 2025-04-13 11:50 | EXP.PAIN.SOA ---
[facility] Disclaimer: The information contained in this section may have been updated after the patient was seen, as this information can be updated by other users. Medical History Negative colorectal cancer screening using DNA-based stool test Vitamin D deficiency Degeneration of intervertebral disc of lumbar region with osteophyte of lumbar vertebra DM type 2 (diabetes mellitus, type 2) Gout Morbid obesity Diastolic dysfunction Hyperlipemia Hypertension Olecranon bursitis of left elbow Surgical History History of tonsillectomy History of rotator cuff surgery Family History Other Heart attack Stroke Social History Smoking Status: Never smoker alcohol intake: never current occupational status: other Travel in the last 8 weeks?: None Have you lived/traveled outside US in past 30 days?: No Contact w/someone who lives/traveled outside US past 30 days?: No Exposure to someone with infectious disease in past 14 days?: No Do you have a fever (greater than 100.4 F or 38 C)?: No Have you tested positive for COVID-19?: No Exposed to someone with COVID-19 in past 14 days?: No Do you have a sore throat?: No Do you have a cough?: No Do you have any weakness?: No Do you have any diarrhea?: No Are you experiencing any unusual bleeding?: No Do you have any muscle aches/pain?: No Do you have any abdominal pain?: No Are you experiencing loss of taste or smell?: No PM Subjective & Objective Subjective Subjective:: Patient is a pleasant 65-year-old male who presents today for follow-up of his lumbar MRI. He rates his pain a 4-5 out of 10. He denies any new falls or injuries. He does state overall it still the same chronic back pain. Patient states that the injections just have not been able to give the relief that he wanted. Patient has continued conservative therapy. He does state that he has been using Aspercreme and it seems to do just as well as the compounded cream. His Tony has been reviewed and is appropriate. Review of Systems: General: No recent weight changes, no fever, no sleep disturbances Respiratory: No cough, no shortness of air, no recurring pulmonary infections Cardiovascular/peripheral vascular: No chest pain, no palpitations, no edema, no shortness of breath Gastrointestinal: No new onset incontinence, normal bowel movements reported Genitourinary: No new onset incontinence Musculoskeletal: Chronic back pain Psychiatric: [Normal mood/affect] Neurological: [Denies weakness in extremities], [denies balance issues] Pain at rest (0-10 scale): 4 Objective Objective:: Physical Exam: General: Alert and oriented x3, no acute distress, pleasant and cooperative Lungs: Respirations even and unlabored, symmetrical chest expansion Eyes: PERRL Musculoskeletal: Flexion and extension of lumbar [spine] somewhat guarded secondary to pain, [antalgic gait noted] Neurological: Speech clear, no gross sensory deficit Has patient had previous pain injection?: No Conservative treatment options previously tried: Home exercise plan Length of treatment: Longer than 12 weeks Meds Home Medications and Allergies Home Medications ?Medication ?Instructions ?Recorded ?Confirmed ?Type meloxicam 15 mg tablet 15 mg PO DAILY 03/11/22 04/13/25 History fluticasone propionate 50 1 spray intranasal DAILY #16 grams 08/31/22 04/13/25 Rx mcg/actuation nasal spray,suspension (Allergy Relief (fluticasone)) albuterol sulfate 90 mcg/actuation 2 puff inhalation Q4-6H PRN 11/30/22 04/13/25 Rx aerosol inhaler shortness of breath or wheezing #8.5 grams diazepam 5 mg tablet 5 mg PO DAILY PRN prior to 02/03/23 04/13/25 Rx procedure #1 tab blood sugar diagnostic (Accu-Chek #50 strips 02/17/23 04/13/25 Rx Jaz Plus test strips) ertugliflozin 15 mg tablet See Rx Instructions .Route 05/19/23 04/13/25 Rx (Steglatro) .COMPLEX #30 tabs pioglitazone 30 mg tablet 30 mg PO DAILY #90 tabs 07/08/23 04/13/25 Rx spironolactone 25 mg tablet 25 mg PO DAILY #90 tabs 07/27/23 04/13/25 Rx allopurinol 300 mg tablet See Rx Instructions .Route 12/18/23 08/15/25 Rx .COMPLEX #30 tabs metformin 1,000 mg tablet See Rx Instructions .Route 08/16/23 04/13/25 Rx .COMPLEX #60 tabs losartan 100 mg tablet See Rx Instructions .Route 04/24/24 04/13/25 Rx .COMPLEX #90 tabs simvastatin 20 mg tablet See Rx Instructions .Route 04/27/24 04/13/25 Rx .COMPLEX #30 tabs baclofen 10 mg tablet 10 mg PO BID #28 tabs 01/17/25 04/13/25 Rx diclofenac sodium 75 mg 75 mg PO BID #28 tabs 03/22/25 04/13/25 Rx tablet,delayed release New Prescriptions to Start Prescriptions: Allergies Allergy/AdvReac Type Severity Reaction Status Date / Time No Known Allergies Allergy Verified 03/27/24 09:30 Assessment and Plan *Assessment and plan (1) Lumbar facet arthropathy: Status: Acute Category: Medical Code(s): M47.816 - Spondylosis without myelopathy or radiculopathy, lumbar region (2) Myofascial pain on left side: Status: Acute Category: Medical Code(s): M79.18 - Myalgia, other site (3) Low back pain: Status: Acute Qualifiers: Chronicity: acute Back pain laterality: bilateral Sciatica presence: without sciatica Qualified Code(s): M54.50 - Low back pain, unspecified Category: Medical Code(s): M54.50 - Low back pain, unspecified Plan I did review over with the patient regarding his lumbar MRI. I did also discuss with him that I do believe he would benefit from an intrathecal pain pump trial. We did review over risk and benefits and educational handouts were given during today's visit. We will follow-up with him in future. I did discuss that I would order a psychological evaluation and a referral to neurosurgery if he chose to go this route. Patient was counseled that he can call and let us know if he would like to proceed forward with these options over the phone and I can send the orders. Patient will call us for his next follow-up appointment. Patient has been instructed to contact the clinic with any concerns before the next appointment. Dr. Hogue has reviewed this note and agrees with this plan of care. This note was dictated using voice recognition software and make contain errors or omissions. All injections are used with Lidocaine, Bupivacaine and dexamethasone. Occasionally urine drug screen is needed to verify patient's compliance with our office pain contract. This is ordered based off specific treatments related to chronic pain with the potential to abuse certain medications.
== END 2025-04-13 23:59 | disposition home or self-care (01) ==
LOC: SC.PAIN 11:14
PROVIDERS: PCP Family Medicine; Visit Provider Nurse Practitioner Family
DX: M47.816 Spondylosis without myelopathy or radiculopathy, lumbar region (principal); M79.18 Myalgia, other site
CPT/HCPCS: 99212; G0463

== ENCOUNTER 2025-08-20 08:06 | Outpatient (CLI) | payer MEDICARE, SELFPAY ==
--- OUTSIDE RECORDS SUMMARY | 2024-04-26 10:00 | XMS_ITS ---
[facility] [address] [place] [id number] Care Team Providers Care Burr Grinder Name Role Phone Harshal Garcia Primary Care Provider [phone] Osman Aparicio Unavailable [phone] Allergies No Known Allergies Results Component Value Reference Range Notes Urinalysis - Inhouse Reviewed date:04/26/2024 04:19:20 PM Interpretation: Performing Lab: Notes/Report: Color/Clarity yellow/clear Leuk neg Nitrite neg Urobili 3.2 Protein neg pH 5.5 Blood trace-intact Sp. Gr. 1.010 Ketone 1+ Bili neg Gluc 2+ TEN-UTI panel Reviewed date:05/04/2024 01:19:03 PM Interpretation:Sensitive Performing Lab: Notes/Report: Sensitive REASON FOR VISIT possible UTI Medications Medication SIG (Take, Route, Frequency, Duration) Notes Start Date End Date Status Macrobid 100 MG 1 capsule with food Orally every 12 hrs; Duration: 7 days 04/26/2024 Active CPAP machine and supplies - as directed as directed Active Multivitamin - 1 tab(s) orally once a day Active Fluticasone Propionate 50 MCG/ACT 1 spray(s) in each nostril once a day; Duration: 30 day(s) 06/18/2021 Active Allopurinol 300 MG 1 tab(s) orally once a day; Duration: 90 days Active metFORMIN HCl 1000 MG Take 1 Tablet by m outh twice daily. Orally Two times a day Active Losartan Potassium 100 MG 1 tab(s) orall y once a day Active Simvastatin 20 MG 1 tab(s) orally once a day (at bedtime) Active Tamsulosin HCl 0.4 MG 1 capsule Orally O nce a day; Duration: 30 day(s) 04/26/2024 Active Jardiance 25 MG 1 tablet Orally Once a day; Duration: 90 days 2024 Active Pioglitazone HCl 30 MG 1 tablet Orally O nce a day Active Problems Problem Type SNOMED Code ICD Code Onset Dates Problem Status W/U Status Risk Notes Problem Urinary hesitancy (4166887) Urinary hesitancy (R39.11) Active confirmed Vital Signs Blood pressure systolic 122 mm Hg 04/26/20 24 Blood pressure diastolic 78 mm Hg 024 Heart Rate 70 /min 04/26/2024 Height 65.5 in 04/26/2024 Weight 260 lbs 04/26/2024 BMI 42.60 kg/m2 04/26/2024 Encounters Encounter Location Date Provider Diagnosis [facility] [address] [facility] [address] [facility] [address] [place] [id number] 04/26/2024 Harshal Garcia Urinary hesitancy R39.11 and Pelvic pain R10.2 Assessments Encounter Date Diagnosis (ICD Code) Assessment Notes Treatment Notes Treatment Clinical Notes Section Notes 04/26/2024 Urinary hesitancy (ICD-10 - R39.11) 04/26/2024 Pelvic pain (ICD-10 - R10.2) Patient seems to have a UTI Plan Of Treatment Medication Medication Name Sig Start Date Stop Date Notes Macrobid 100 MG 1 capsule with food Orally every 12 hrs; Duration: 7 days 04/26/2024 Tamsulosin HCl 0.4 MG 1 capsule Orally O nce a day; Duration: 30 day(s) 04/26/2024 Treatment Notes Assessment Notes Pelvic pain Patient seems to hav e a UTI Next Appt Details Follow Up: as scheduled,and prn, Reason: Provider Name:Harshal Lee ry, 10/31/2025 09:45:00 AM, [address] [facility] [address] [facility], [address], [place], [phone], Progress Notes * BENJA SIMS SDOB:[birth year] (65 yo M)Acc No.[id number]:04/26/2024 Progress Notes Patient: BENJA UGALDE Provider: Franky Garcia M.D. :1960 A ge:64 Y S ex:Male Date:04/26/2024 Address:[address] [place] [address] Subjective: * Chief Complaints: * 1 . possible UTI. * HPI: M shaw Reproductive: 64 year old male presents with c/o Difficulty Urinating P t complains of having a hard time going to the bathroom for a couple days. States that he also has some pressure when he is able to urinate. Denies : burning urination. D enies : flank pain. * ROS: C ARDIOLOGY: no D izziness. n o C hest pain. D ERMATOLOGY: no R anselmo. n o H tommie. G ASTROENTEROLOGY: no N ausea. n o V omiting. * Medical History: H yperlipidemia, Hypertension, Diabetes Mellitus 2, Sleep apnea, Gout, Allergic rhinitis, RT Rotator Cuff Tear x 2, Lumbar Disc Disease, Lumbar facet arthropathy, Chronic back pain. * Surgical History: R T Rotator Cuff Tear x 2 . * Hospitalization/Major Diagno stic Procedure: P neumonia . * Family History: F ather: . M other: . 1 sister(s) . 2 daughter(s) . . * Social History: C URRENT TOBACCO USE S moking Status: Patient does NOT smoke, Former Smoker: No, Second hand smoke exposure: No. C affeine: yes, frequency:coffee. Exercise: no. Marital Status: . Past smoking status: no, Smoking status: Does not smoke, Former Smoker: No. Travel ouside [place]: no. * Medications: T [facility] CPAP machine and supplies - - as directed as directed , Taking Multivitamin - Tablet 1 tab(s) orally once a day , Taking Fluticasone Propionate 50 MCG/ACT Suspension 1 spray(s) in each nostril once a day , Taking Pioglitazone HCl 30 MG Tablet 1 tablet Orally Once a day , Taking metFORMIN HCl 1000 MG Tablet Take 1 Tablet by mouth twice daily. Orally Two times a day , Taking Losartan Potassium 100 MG Tablet 1 tab(s) orally once a day , Taking Simvastatin 20 MG Tablet 1 tab(s) orally once a day (at bedtime) , Taking Jardiance 25 MG Tablet 1 tablet Orally Once a day , Taking Allopurinol 300 MG Tablet 1 tab(s) orally once a day , Medication List reviewed and reconciled with the patient * Allergies: N .K.D.A. Objective: * Vitals: W t:260, Temp:97.6, BP:122/78, HR:70, Nurse:tosha, Ht: 65.5, BMI:42.60. * Examination: G eneral Examination: General Appearance: N AD. H eart: R SR. L ungs:?clear to auscultation. B ack: no CVA tenderness. Assessment: * Assessment: 1. U rinary hesitancy - R39.11 (Primary) 2 . P elvic pain - R10.2 ? Plan: * Treatment: Value Reference Range C olor/Clarity yellow/clear * L euk neg * N itrite neg * U robili 3.2 * P rotein neg * p H 5.5 * B lood trace-intact * S p. Gr. 1.010 * K etone 1+ * B leah neg * G milana 2+ * Araceli Parish 04/26/2024 3:11:20 PM > , Provider reviewed results while patient in office. ?LAB: TEN-UTI panel (Collection Date & Time - 04/26/2024)?Sensitive* Chayito Jones 04/28/2024 1:51 :58 PM > no results on TENNolan,Nereyda 05/04/2024 1:18:45 PM > Started on Macrobid. Left message informing 2.?Pelvic pain? Start Macrobid Capsule, 100 MG, 1 capsule with food, Orally, every 12 hrs, 7 days, 14 Capsule, Refills 0.?LAB: TEN-UTI panel (Collection Date & Time - 04/26/2024)?Sensitive* Chayito Jones 04/28/2024 1:51 :58 PM > no results on TENNolan,Nereyda 05/04/2024 1:18:45 PM > Started on Macrobid. Left message informing Notes: Patient seems to have a UTI?? * Procedure Codes: 8 1002 Urinalysis, no micro, 29022 SPECIMEN HANDLING * Follow Up: a s scheduled,and prn * Images: Billing Information: * Visit Code: 29764 Office Visit, Est Pt., Level 3. * Procedure Codes: 80890 Urinalysis, no micro. 66467 SPECIMEN HANDLING. * Electronic signature of Peggy Garcia MD on 08/20/2025 at 08:09 AM EST Sign off status: Pending * Provider: Franky Garcia M.D. Date: 0 04/26/2024 Generated for Candido ram/Katherine/Rosalinda on: 1 10/21/2024 08:09 AM EST History and Physical Notes * HPI (History of Present Illness) Category Sub-Category Detail Notes Category Not es Male Reproductive burning urination flank pain Difficulty Urinating Pt complains of manrique ving a hard time going to the bathroom for a couple days. States that he also has some pressure when he is able to urinate Examination Category Sub-Category Detail Notes Category Not es General Examination Heart: RSR Lungs: clear to auscultatio n General Appearance: NAD Back: no CVA tenderness
--- OUTSIDE RECORDS SUMMARY | 2024-05-29 04:00 | XMS_ITS ---
[facility] Address [address] [place] [id number] Care Team Providers Care Dental Equipment Mechanic Name Role Phone Harshal Garcia Primary Care Provider [phone] Osman Aparicio Unavailable [phone] Allergies No Known Allergies Results Component Value Reference Range Notes Urinalysis - Inhouse Reviewed date:05/29/2024 10:23:06 AM Interpretation: Performing Lab: Notes/Report: Color/Clarity yellow/clear Leuk neg Nitrite neg Urobili 3.2 Protein neg pH 5.5 Blood neg Sp. Gr. 1.015 Ketone neg Bili neg Gluc 2+ Glucose (In-House) Reviewed date:05/29/2024 10:23:15 AM Interpretation: Performing Lab: Notes/Report: blood glucose 148 74 - 106 mg/dL CBC Venipuncture (in house) Reviewed date:05/29/2024 10:23:24 AM Interpretation: Performing Lab: Notes/Report: wbc 5.6 3.5 - 10 lymph 32.8% 15 - 50 mid 7.1% 2 - 15 gran 60.1% 35 - 80 rbc 5.31 3.5 - 5.5 hgb 15.4 11.5 - 16.5 hct 48.2 35 - 55 mcv 90.8 75 - 100 mch 29.0 25 - 35 mchc 31.9 31 - 38 platlet 193 100 - 400 Glycohemoglobin A1c (in hous e) Reviewed date:05/29/2024 10:23:32 AM Interpretation: Performing Lab: Notes/Report: glycohemoglobin 7.6% 5 - 6.5 % P-Comprehensive Metabolic Pa jeanne (CMP) Reviewed date:05/30/2024 10:44:07 AM Interpretation:gluc 136, Cr 0.61 Performing Lab: Notes/Report: Test performed by [email or web address] [address] [place] [address] , [address], [place] [address] Damon Mireles MD, [employer] Remover CLIA: [id number] Sodium 140 135-145 mmol/L Potassium 4.5 3.5-5.3 mmol/L Chloride 103 97-108 mmol/L CO2 26 22-32 mmol/L Glucose 136 65-99 mg/dL BUN 10 8-23 mg/dL Creatinine 0.61 0.70-1.30 mg/dL Calcium 9.4 8.6-10.4 mg/dL eGFR by Creatinine 106 >59 mL/min/1.73m2 Protein 6.6 6.0-8.3 g/dL Albumin 4.6 3.5-5.3 g/dL Alkaline Phosphatase 73 40-129 IU/L ALT (SGPT) 25 <5-55 IU/L AST (SGOT) 18 <5-46 IU/L Bilirubin, Total 0.3 <0.2-1.2 mg/dL A/G Ratio 2.3 1.1-2.5 P-Lipid Panel Reviewed date:05/30/2024 10:44:07 AM Interpretation:trigs 264, hdl 34 Performing Lab: Notes/Report: Test performed by [email or web address] [address] [place] [address] [address], [place] [address] Damon Mireles MD, [employer]over CLIA: [id number] Cholesterol 141 <200 mg/dL Triglycerides 264 <150 mg/dL HDL Cholesterol 34 >39 mg/dL Cholesterol / HDL Ratio 4.15 0.00-4.99 Ratio Non-HDL Cholesterol 107 <130 mg/dL LDL Cholesterol (Calculation) 54 <130 mg/dL LDL Cholesterol Levels* Less than 100 mg/dL Optimal 100 to 129 mg/dL Near Optimal/ Above Optimal 130 to 159 mg/dL Borderline High 160 to 189 mg/dL High 190 mg/dL and above Very High * Categories as recommended by the 2004 ATPIII guidelines LDL/HDL Ratio 1.6 <3.3 Ratio LDL Cholesterol Patient History Test Date: 11/26/2023 LDL Results: 83 Units: mg/dL % Change: - Test Date: 05/29/2024 LDL Results: 54 Units: mg/dL % Change: -34% REASON FOR VISIT 6 month checkup Medications Medication SIG (Take, Route, Frequency, Duration) Notes Start Date End Date Status Multivitamin - 1 tab(s) orally once a day Active Pioglitazone HCl 30 MG 1 tablet Orally O nce a day Active Spironolactone 25 MG 1 tablet Orally; Duration: 30 day(s) Active CPAP machine and supplies - as directed as directed Active Tamsulosin HCl 0.4 MG 1 capsule Orally O nce a day; Duration: 30 day(s) 04/26/2024 Active Fluticasone Propionate 50 MCG/ACT 1 spray(s) in each nostril once a day; Duration: 30 day(s) 06/18/2021 Not-Taking Simvastatin 20 MG 1 tab(s) orally once a day (at bedtime) Active Jardiance 25 MG 1 tablet Orally Once a day; Duration: 90 days 2024 Active Allopurinol 300 MG 1 tab(s) orally once a day; Duration: 90 days Active metFORMIN HCl 1000 MG Take 1 Tablet by m outh twice daily. Orally Two times a day Active Losartan Potassium 100 MG 1 tab(s) orall y once a day Active Immunizations Vaccine Route Administration Date Status Comme nts Fluzone High Dose (65yr and older) Unknown 05/29/2024 P ending Vital Signs Blood pressure systolic 120 mm Hg 05/29/20 24 Blood pressure diastolic 80 mm Hg 024 Heart Rate 80 /min 05/29/2024 Height 65.5 in 05/29/2024 Weight 259.8 lbs 05/29/2024 BMI 42.57 kg/m2 05/29/2024 Encounters Encounter Location Date Provider Diagnosis [facility] [address] [id number] 05/29/2024 Harshal Garcia Type 2 diabetes elvira itus without complication E11.9 ; Essential hypertension I10 ; Pure hypercholesterolemia, unspecified E78.00 ; Left-sided low back pain without sciatica, unspecified chronicity M54.50 ; Recent urinary tract infection Z87.440 and Urinary hesitancy R39.11 Assessments Encounter Date Diagnosis (ICD Code) Assessment Notes Treatment Notes Treatment Clinical Notes Section Notes 05/29/2024 Type 2 diabetes mellitus without complication (ICD-10 - E11.9) 05/29/2024 Essential hypertension (ICD-10 - I10) 05/29/2024 Pure hypercholesterole petra, unspecified (ICD-10 - E78.00) 05/29/2024 Left-sided low back pain without sciatica, unspecified chronicity (ICD-10 - M54.50) 05/29/2024 Recent urinary tract infection (ICD-10 - Z87.440) 05/29/2024 Urinary hesitancy (ICD-10 - R39.11) Plan Of Treatment Medication Medication Name Sig Start Date Stop Date Notes Tamsulosin HCl 0.4 MG 1 capsule Orally O nce a day; Duration: 30 day(s) 04/26/2024 Next Appt Details Follow Up: 6 Months, Reason: Provider Name:Harshal carvajal, 10/31/2025 09:45:00 AM, [address], [address], [place], [place], [id number], Progress Notes * BENJA SIMS SDOB:[birth year] (65 yo M)Acc No.[id number]:05/29/2024 Progress Notes Patient: BENJA UGALDE Provider: Franky Garcia M.D. :1960 A ge:64 Y S ex:Male Date:05/29/2024 Address:[address] [place] [address] Subjective: * Chief Complaints: * 1 . 6 month checkup. * HPI: C ardiology: 64 year old male presents with c/o Blood Pressure Elevated P t here for 6 mo f/u on hypertension, states he is doing well and does not have any concerns. c/o Hyperlipidemia P t is fasting today. E ndocrinology: c/o Recent Blood Sugars P t here to f/u on DM 2. * ROS: D ERMATOLOGY: no R anselmo. n o H tommie. G ASTROENTEROLOGY: no N ausea. n o V omiting. U ROLOGY: no D ifficulty urinating. n o B lood in urine. * Medical History: H yperlipidemia, Hypertension, Diabetes Mellitus 2, Sleep Apnea, Gout, Allergic Rhinitis, RT Rotator Cuff Tear x 2, Lumbar Disc Disease, Lumbar facet arthropathy, Chronic Back Pain. * Surgical History: R T Rotator Cuff [...] Travel ouside [place]: no. * Medications: T aking Spironolactone 25 MG Tablet 1 tablet Orally , Taking CPAP machine and supplies - - as directed as directed , Taking Multivitamin - Tablet 1 tab(s) orally once a day , Taking Pioglitazone HCl [...] tab(s) orally once a day , Taking Tamsulosin HCl 0.4 MG Capsule 1 capsule Orally Once a day , Not-Taking Fluticasone Propionate 50 MCG/ACT Suspension 1 spray(s) in each nostril once a day , Discontinued Macrobid 100 MG Capsule 1 capsule with food Orally every 12 hrs , Medication List reviewed and reconciled with the patient * Allergies: N .K.D.A. Objective: * Vitals: W t:259.8, Temp:97.8, BP:120/80, HR:80, Nurse:tosha, Ht: 65.5, BMI:42.57. * Examination: E ndocrinology: General Appearance: N AD. H eart: R SR. L ungs:?clear to auscultation. E xtremities: n o leg edema. G eneral Examination: Back: no CVA tenderness. Assessment: * Assessment: 1. T ype 2 diabetes mellitus without complication - E11.9 (Primary) 2 . E ssential hypertension - I10 3 . P ure hypercholesterolemia, unspecified - E78.00? 4. L eft-sided low back pain without sciatica, unspecified chronicity - M54.50 5. R ecent urinary tract infection - Z87.440 6 . U rinary hesitancy - R39.11 Plan: * Treatment: Value Reference Range A /G Ratio 2.3 1.1-2.5 - * A lbumin 4.6 3.5-5.3 - g/dL * A lkaline Phosphatase 73 40-129 - IU/L * A LT (SGPT) 25 <5-55 - IU/L * A ST (SGOT) 18 <5-46 - IU/L * B ilirubin, Total 0.3 <0.2-1.2 - mg/dL * B UN 10 8-23 - mg/dL * C alcium 9.4 8.6-10.4 - mg/dL * C hloride 103 97-108 - mmol/L * C O2 26 22-32 - mmol/L * C reatinine 0.61 L 0.70-1.30 - mg/dL * G lucose 136 H 65-99 - mg/dL * P otassium 4.5 3.5-5.3 - mmol/L * S odium 140 135-145 - mmol/L * P rotein 6.6 6.0-8.3 - g/dL * e GFR by Creatinine 106 >59 - mL/min/1.73m2 * Constanza Turcios 05/30/2024 10:44 :00 AM >See phone encounter ?LAB: Glucose (In-House) (Collection Date & Time - 05/29/2024)* Value Reference Range b lood glucose 148 74 - 106 mg/dL * Araceli Parish 05/29/2024 10:06:2 5 AM > , Provider reviewed results while patient in office. ?LAB: Glycohemoglobin A1c (in house) (Collection Date & Time - 05/29/2024)* Value Reference Range g lycohemoglobin 7.6% 5 - 6.5 % * Araceli Parish 05/29/2024 10:06:5 6 AM > , Provider reviewed results while patient in office. 2.?Essential hypertension?LAB: P-Comprehensive Metabolic Panel (CMP) (Collection Date & Time - 05/29/2024 08:30 AM)?gluc 136, Cr 0.61* Value Reference Range A /G Ratio 2.3 1.1-2.5 - * A lbumin 4.6 3.5-5.3 - g/dL * A lkaline Phosphatase 73 40-129 - IU/L * A LT (SGPT) 25 <5-55 - IU/L * A ST (SGOT) 18 <5-46 - IU/L * B ilirubin, Total 0.3 <0.2-1.2 - mg/dL * B UN 10 8-23 - mg/dL * C alcium 9.4 8.6-10.4 - mg/dL * C hloride 103 97-108 - mmol/L * C O2 26 22-32 - mmol/L * C reatinine 0.61 L 0.70-1.30 - mg/dL * G lucose 136 H 65-99 - mg/dL * P otassium 4.5 3.5-5.3 - mmol/L * S odium 140 135-145 - mmol/L * P rotein 6.6 6.0-8.3 - g/dL * e GFR by Creatinine 106 >59 - mL/min/1.73m2 * Constanza Turcios 05/30/2024 10:44 :00 AM >See phone encounter 3.?Pure hypercholesterolemia, unspecified?LAB: P-Comprehensive Metabolic Panel (CMP) (Collection Date & Time - 05/29/2024 08:30 AM)?gluc 136, Cr 0.61* Value Reference Range A /G Ratio 2.3 1.1-2.5 - * A lbumin 4.6 3.5-5.3 - g/dL * A lkaline Phosphatase 73 40-129 - IU/L * A LT (SGPT) 25 <5-55 - IU/L * A ST (SGOT) 18 <5-46 - IU/L * B ilirubin, Total 0.3 <0.2-1.2 - mg/dL * B UN 10 8-23 - mg/dL * C alcium 9.4 8.6-10.4 - mg/dL * C hloride 103 97-108 - mmol/L * C O2 26 22-32 - mmol/L * C reatinine 0.61 L 0.70-1.30 - mg/dL * G lucose 136 H 65-99 - mg/dL * P otassium 4.5 3.5-5.3 - mmol/L * S odium 140 135-145 - mmol/L * P rotein 6.6 6.0-8.3 - g/dL * e GFR by Creatinine 106 >59 - mL/min/1.73m2 * Constanza Turcios 05/30/2024 10:44 :00 AM >See phone encounter ?LAB: P-Lipid Panel (Collection Date & Time - 05/29/2024 08:30 AM)?trigs 264, hdl 34* Value Reference Range C holesterol / HDL Ratio 4.15 0.00-4.99 - Ratio * C holesterol 141 <200 - mg/dL * H DL Cholesterol 34 L >39 - mg/dL * L DL Cholesterol (Calculation) 54 <130 - mg/d L * L DL/HDL Ratio 1.6 <3.3 - Ratio * N on-HDL Cholesterol 107 <130 - mg/dL * T riglycerides 264 H <150 - mg/dL * Constanza Turcios 05/30/2024 10:44 :00 AM >See phone encounter 4.?Left-sided low back pain without sciatica, unspecified chronicity?LAB: Urinalysis - Inhouse (Collection Date & Time - 05/29/2024)* Value Reference Range C olor/Clarity yellow/clear * L euk neg * N itrite neg * U robili 3.2 * P rotein neg * p H 5.5 * B lood neg * S p. Gr. 1.015 * K etone neg * B leah neg * G milana 2+ * Araceli Parish 05/29/2024 10:06:0 7 AM > , Provider reviewed results while patient in office. ?LAB: CBC Venipuncture (in house) (Collection Date & Time - 05/29/2024)* Value Reference Range w bc 5.6 3.5 - 10 * l ymph 32.8% 15 - 50 * m id 7.1% 2 - 15 * g ran 60.1% 35 - 80 * r bc 5.31 3.5 - 5.5 * h gb 15.4 11.5 - 16.5 * h ct 48.2 35 - 55 * m cv 90.8 75 - 100 * m ch 29.0 25 - 35 * m chc 31.9 31 - 38 * p latlet 193 100 - 400 * Araceli Parish 05/29/2024 10:08:1 4 AM > , Provider reviewed results while patient in office. 5.?Recent urinary tract infection?LAB: Urinalysis - Inhouse (Collection Date & Time - 05/29/2024)* Value Reference Range C olor/Clarity yellow/clear * L euk neg * N itrite neg * U robili 3.2 * P rotein neg * p H 5.5 * B lood neg * S p. Gr. 1.015 * K etone neg * B leah neg * G milana 2+ * Araceli Parish 05/29/2024 10:06:0 7 AM > , Provider reviewed results while patient in office. ?LAB: CBC Venipuncture (in house) (Collection Date & Time - 05/29/2024)* Value Reference Range w bc 5.6 3.5 - 10 * l ymph 32.8% 15 - 50 * m id 7.1% 2 - 15 * g ran 60.1% 35 - 80 * r bc 5.31 3.5 - 5.5 * h gb 15.4 11.5 - 16.5 * h ct 48.2 35 - 55 * m cv 90.8 75 - 100 * m ch 29.0 25 - 35 * m chc 31.9 31 - 38 * p latlet 193 100 - 400 * Araceli Parish 05/29/2024 10:08:1 4 AM > , Provider reviewed results while patient in office. 6.?Urinary hesitancy? Refill Tamsulosin HCl Capsule, 0.4 MG, 1 capsule, Orally, Once a day, 30 day(s), 30 Capsule, Refills 0.?? * Immunizations: Fluzone High Dose (65yr and older) : 0.7 mL (Pending) * Procedure Codes: G 2211 Complex e/[place], [address] GLUCOSE TEST, 03256 GLYCATED HEMOGLOBIN TEST, Modifiers: QW , 35308 Urinalysis, no micro, 71601 CBC WITH AUTO DIFF * Follow Up: 6 Months * Images: Billing Information: * Visit Code: 83326 Office Visit, Est Pt., Level 4. * Procedure Codes: G2211 Complex e/[place]. [address] GLUCOSE TEST. 80591 GLYCATED HEMOGLOBIN TEST. Modifiers: QW 45078 Urinalysis, no micro. 18587 CBC WITH AUTO DIFF. * Electronic signature of Peggy Garcia MD on 08/20/2025 at 08:09 AM EST Sign off status: Pending * Provider: Franky Garcia M.D. Date: 0 05/29/2024 Generated for Candido ram/Katherine/Mitraitting on: 1 10/21/2024 08:09 AM EST History and Physical Notes * HPI (History of Present Illness) Category Sub-Category Detail Notes Category Not es Endocrinology Recent Blood Sugars Pt here to f/u on DM 2 Cardiology Blood Pressure Elevated Pt here for 6 mo f/u on hypertension, states he is doing well and does not have any concerns Hyperlipidemia Pt is fasting today Examination Category Sub-Category Detail Notes Category Not es General Examination Back: no CVA tenderness Endocrinology Heart: RSR Lungs: clear to auscultatio n Extremities: no leg edema General Appearance: NAD
--- OUTSIDE RECORDS SUMMARY | 2024-11-24 04:00 | XMS_ITS ---
[facility] [address] [facility] [address] [place] [id number] Care Team Providers Care Public Health Specialist Name Role Phone Harshal Garcia Primary Care Provider Osman Aparicio Unavailable [phone] Allergies No Known Allergies Results Component Value Reference Range Notes Glucose (In-House) Reviewed date:11/26/2024 11:48:02 AM Interpretation:130 Performing Lab: Notes/Report: 130 blood glucose 130 74 - 106 mg/dL P-Comprehensive Metabolic Pa jeanne (CMP) Reviewed date:11/26/2024 11:48:01 AM Interpretation:gluc 129, Cr 0.69 Performing Lab: Notes/Report: Test performed by [employer], [employer] [facility] , [address], [place] [address] Damon Mireles MD, Business Support Specialist CLIA: [id number] Sodium 141 135-145 mmol/L Potassium 4.8 3.5-5.3 mmol/L Chloride 102 97-108 mmol/L CO2 26 22-32 mmol/L Glucose 129 65-99 mg/dL BUN 11 8-23 mg/dL Creatinine 0.69 0.70-1.30 mg/dL Calcium 9.7 8.6-10.4 mg/dL eGFR by Creatinine 102 >59 mL/min/1.73m2 Protein 7.0 6.0-8.3 g/dL Albumin 4.7 3.5-5.3 g/dL Alkaline Phosphatase 77 40-129 IU/L ALT (SGPT) 29 <5-55 IU/L AST (SGOT) 19 <5-46 IU/L Bilirubin, Total 0.3 <0.2-1.2 mg/dL A/G Ratio 2.0 1.1-2.5 P-Hemoglobin A1C Reviewed date:11/26/2024 11:48:02 AM Interpretation:7.6 Performing Lab: Notes/Report: Test performed by [facility] [address] [place] [address] [address] [place] [address] Damon Mireles MD, Business Support Specialist CLIA: [id number] Hemoglobin A1C 7.6 <5.7 % The following HbA1c ranges recommended by the [place] [employer] (ADA) may be used as an aid in the diagnosis of diabetes mellitus. HbA1c Suggested Diagnosis >=6.5% Diabetic 5.7% - 6.4% Pre-Diabetic <5.7% Non-Diabetic P-Lipid Panel Reviewed date:11/26/2024 11:48:02 AM Interpretation:trigs 211, hdl 38 Performing Lab: Notes/Report: Test performed by [facility] [address] [place] [address] [address] , [place] [address] Damon Mireles MD, Business Support Specialist CLIA: [id number] Cholesterol 140 <200 mg/dL Triglycerides 211 <150 mg/dL HDL Cholesterol 38 >39 mg/dL Cholesterol / HDL Ratio 3.68 0.00-4.99 Ratio Non-HDL Cholesterol 102 <130 mg/dL LDL Cholesterol (Calculation) 60 <130 mg/dL LDL Cholesterol Levels* Less than [...] Results: 54 Units: mg/dL % Change: -34% Test Date: 11/24/2024 LDL Results: 60 Units: mg/dL % Change: +11% P-TSH reflex to FT4 Reviewed date:11/26/2024 11:48:02 AM Interpretation:Normal Performing Lab: Notes/Report: Test performed by [facility] [address] [place], [place] [address] , [address], [place] [address] Damon Mireles MD, Business Support Specialist CLIA: [id number] TSH reflex to FT4 1.04 0.43-5.25 mU/L P-Microalbumin/Creatinine, R andom Urine Sample Reviewed date:11/26/2024 11:48:02 AM Interpretation:a/c 41 Performing Lab: Notes/Report: Test performed by [facility] [address] [place], [place] [address] , [address], [place] [address] Damon Mireles MD, Business Support Specialist CLIA: [id number] Albumin/Creatinine Ratio, Urine 41 0-30 ug/m g Microalbumin, Urine, Random 2.1 Creatinine, Urine 50.9 P-Uric Acid Reviewed date:11/26/2024 11:48:02 AM Interpretation:Normal Performing Lab: Notes/Report: Test performed by [facility] [address] [place] [address] [address], [place] [address] Damon Mireles MD, Business Support Specialist CLIA: [id number] Uric Acid 4.0 3.4-8.0 mg/dL Estimated Average Glucose Reviewed date:11/26/2024 11:48:02 AM Interpretation:171 Performing Lab: Notes/Report: Test performed by [facility] [address] [place] [address] [facility] [place] [id number] Damon Mireles MD, Business Support Specialist CLIA: [id number] Estimated Average Glucose (eAG) 171 Estimated Average Glucose (eAG) is calculated using the equation eAG = (28.7 x HbA1c) - 46.7 based on the guidelines established by the ADA. If the patient has certain diseases including kidney disease, sickle cell anemia, thalassemia, or is taking medications such as dapsone, erythropoietin, or iron, eAG should not be evaluated. REASON FOR VISIT 6 Month Check Up Medications Medication SIG (Take, Route, Frequency, Duration) Notes Start Date End Date Status Ozempic (0.25 or 0.5 MG/DOSE) 2 MG/3ML 0.25 mg Subcutaneous once weekly 11/24/2024 Active Allopurinol 300 MG 1 tab(s) orally once a day; Duration: 90 days Active Pioglitazone HCl 30 MG 1 tablet Orally O nce a day; Duration: 90 days Active Jardiance 25 MG 1 tablet Orally Once a day; Duration: 30 days Active Simvastatin 20 MG 1 tab(s) orally once a day (at bedtime); Duration: 90 days Active Losartan Potassium 100 MG 1 tab(s) orall y once a day; Duration: 90 days Active Spironolactone 25 MG 1 tablet Orally Onc e a day; Duration: 90 days Active Accu-Chek Softclix Lancets - USE TO TEST BLOOD SUGAR TWICE DAILY; Duration: 30 Active Accu-Chek Jaz Plus - Use to check bloo d sugar twice daily as directed.; Duration: 25 Active CPAP machine and supplies - as directed as directed Active Multivitamin - 1 tab(s) orally once a day Active metFORMIN HCl 1000 MG 1 tablet with a me al Orally Two times a day; Duration: 90 days Active Tamsulosin HCl 0.4 MG 1 capsule Orally O nce a day; Duration: 90 days 04/26/2024 Active Vital Signs Blood pressure systolic 130 mm Hg 11/25/19 25 Blood pressure diastolic 70 mm Hg 025 Heart Rate 82 /min 11/24/2024 Height 65.5 in 11/24/2024 Weight 265.6 lbs 11/24/2024 BMI 43.52 kg/m2 11/24/2024 Encounters Encounter Location Date Provider Diagnosis [facility] [address] [place] [id number] 11/24/2024 Harshal Garcia Type 2 diabetes elvira itus without complication E11.9 ; Essential hypertension I10 ; Pure hypercholesterolemia, unspecified E78.00 and Gout, unspecified cause, unspecified chronicity, unspecified site M10.9 Assessments Encounter Date Diagnosis (ICD Code) Assessment Notes Treatment Notes Treatment Clinical Notes Section Notes 11/24/2024 Type 2 diabetes mellitus without complication (ICD-10 - E11.9) 11/24/2024 Essential hypertension (ICD-10 - I10) 11/24/2024 Pure hypercholesterole petra, unspecified (ICD-10 - E78.00) 11/24/2024 Gout, unspecified cause, unspecified chronicity, unspecified site (ICD-10 - M10.9) Plan Of Treatment Medication Medication Name Sig Start Date Stop Date Notes Ozempic (0.25 or 0.5 MG/DOSE) 2 MG/3ML 0.25 mg Subcutaneous once weekly 11/24/2024 Next Appt Details Follow Up: 6 Months, Reason: Provider Name:Harshal Lee ry, 10/31/2025 09:45:00 AM, [address], [address], [place], [id number], Progress Notes * BENJA SIMS SDOB:[birth year] (65 yo M)Acc No.[id number]:11/24/2024 Progress Notes Patient: BENJA UGALDE Provider: Franky Garcia M.D. :1960 A ge:64 Y S ex:Male Date:11/24/2024 Address:[address] [place] [address] Subjective: * Chief Complaints: * 1 . 6 Month Check Up. * HPI: C ardiology: 64 year old male presents with c/o Blood Pressure Elevated P t here for 6 mo f/u on hypertension, states he is doing well and does not have any concerns. c/o Hyperlipidemia P t is fasting today. E ndocrinology: c/o Recent Blood Sugars P t here to f/u DM 2. * ROS: D ERMATOLOGY: no [...] ouside US: no. * Medications: T aking CPAP machine and supplies - - as directed as directed , Taking Multivitamin - Tablet 1 tab(s) orally once a day , Taking metFORMIN HCl 1000 MG Tablet 1 tablet with a meal Orally Two times a day , Taking Tamsulosin HCl 0.4 MG Capsule 1 capsule Orally Once a day , Taking Accu-Chek Jaz Plus - Strip Use to check blood sugar twice daily as directed. , Taking Simvastatin 20 MG Tablet 1 tab(s) orally once a day (at bedtime) , Taking Losartan Potassium 100 MG Tablet 1 tab(s) orally once a day , Taking Spironolactone 25 MG Tablet 1 tablet Orally Once a day , Taking Accu-Chek Softclix Lancets - Miscellaneous USE TO TEST BLOOD SUGAR TWICE DAILY , Taking Allopurinol 300 MG Tablet 1 tab(s) orally once a day , Taking Pioglitazone HCl 30 MG Tablet 1 tablet Orally Once a day , Taking Jardiance 25 MG Tablet 1 tablet Orally Once a day , Discontinued Fluticasone Propionate 50 MCG/ACT Suspension 1 spray(s) in each nostril once a day , Medication List reviewed and reconciled with the patient * Allergies: N .K.D.A. Objective: * Vitals: W t:265.6, Temp:97.8, BP:130/70, HR:82, Nurse:tosha, Ht: 65.5, BMI:43.52. * Examination: E ndocrinology: General Appearance: N AD. H eart: R SR. L ungs:?clear to auscultation. E xtremities: n o leg edema. Assessment: * Assessment: 1. T ype 2 diabetes mellitus without complication - E11.9 (Primary) 2 . E ssential hypertension - I10 3 . P ure hypercholesterolemia, unspecified - E78.00? 4. G out, unspecified cause, unspecified chronicity, unspecified site - M10.9? Plan: * Treatment: Value Reference Range A /G Ratio 2.0 1.1-2.5 - * A lbumin 4.7 3.5-5.3 - g/dL * A lkaline Phosphatase 77 40-129 - IU/L * A LT (SGPT) 29 <5-55 - IU/L * A ST (SGOT) 19 <5-46 - IU/L * B ilirubin, Total 0.3 <0.2-1.2 - mg/dL * B UN 11 8-23 - mg/dL * C alcium 9.7 8.6-10.4 - mg/dL * C hloride 102 97-108 - mmol/L * C O2 26 22-32 - mmol/L * C reatinine 0.69 L 0.70-1.30 - mg/dL * G lucose 129 H 65-99 - mg/dL * P otassium 4.8 3.5-5.3 - mmol/L * S odium 141 135-145 - mmol/L * P rotein 7.0 6.0-8.3 - g/dL * e GFR by Creatinine 102 >59 - mL/min/1.73m2 * TamConstanza 11/26/2024 11:47 :49 AM >See phone encounter ?LAB: P-Hemoglobin A1C (Collection Date & Time - 11/24/2024 01:35 PM)?7.6* Value Reference Range H emoglobin A1C 7.6 H <5.7 - % * TamConstanza urbina 11/26/2024 11:47 :49 AM >See phone encounter ?LAB: P-TSH reflex to FT4 (Collection Date & Time - 11/24/2024 01:35 PM)? Normal* Value Reference Range T SH reflex to FT4 1.04 0.43-5.25 - mU/L * Constanza Turcios 11/26/2024 11:47 :49 AM >See phone encounter ?LAB: P-Microalbumin/Creatinine, Random Urine Sample (Collection Date & Time - 11/24/2024 01:35 PM)?a/c 41* Value Reference Range A lbumin/Creatinine Ratio, Urine 41 H 0-30 - ug /mg * C reatinine, Urine 50.9 - mg/dL * M icroalbumin, Urine, Random 2.1 - mg/dL * Constanza Turcios 11/26/2024 11:47 :49 AM >See phone encounter ?LAB: Glucose (In-House) (Collection Date & Time - 11/24/2024)?130* Value Reference Range b lood glucose 130 74 - 106 mg/dL * Araceli Parish 11/24/2024 11:51:5 3 AM > Constanza Turcios 11/26/2024 11:47:49 AM >See phone encounter 2.?Essential hypertension?LAB: P-Comprehensive Metabolic Panel (CMP) (Collection Date & Time - 11/24/2024 01:35 PM)?gluc 129, Cr 0.69* Value Reference Range A /G Ratio 2.0 1.1-2.5 - * A lbumin 4.7 3.5-5.3 - g/dL * A lkaline Phosphatase 77 40-129 - IU/L * A LT (SGPT) 29 <5-55 - IU/L * A ST (SGOT) 19 <5-46 - IU/L * B ilirubin, Total 0.3 <0.2-1.2 - mg/dL * B UN 11 8-23 - mg/dL * C alcium 9.7 8.6-10.4 - mg/dL * C hloride 102 97-108 - mmol/L * C O2 26 22-32 - mmol/L * C reatinine 0.69 L 0.70-1.30 - mg/dL * G lucose 129 H 65-99 - mg/dL * P otassium 4.8 3.5-5.3 - mmol/L * S odium 141 135-145 - mmol/L * P rotein 7.0 6.0-8.3 - g/dL * e GFR by Creatinine 102 >59 - mL/min/1.73m2 * Constanza Turcios 11/26/2024 11:47 :49 AM >See phone encounter 3.?Pure hypercholesterolemia, unspecified?LAB: P-Comprehensive Metabolic Panel (CMP) (Collection Date & Time - 11/24/2024 01:35 PM)?gluc 129, Cr 0.69* Value Reference Range A /G Ratio 2.0 1.1-2.5 - * A lbumin 4.7 3.5-5.3 - g/dL * A lkaline Phosphatase 77 40-129 - IU/L * A LT (SGPT) 29 <5-55 - IU/L * A ST (SGOT) 19 <5-46 - IU/L * B ilirubin, Total 0.3 <0.2-1.2 - mg/dL * B UN 11 8-23 - mg/dL * C alcium 9.7 8.6-10.4 - mg/dL * C hloride 102 97-108 - mmol/L * C O2 26 22-32 - mmol/L * C reatinine 0.69 L 0.70-1.30 - mg/dL * G lucose 129 H 65-99 - mg/dL * P otassium 4.8 3.5-5.3 - mmol/L * S odium 141 135-145 - mmol/L * P rotein 7.0 6.0-8.3 - g/dL * e GFR by Creatinine 102 >59 - mL/min/1.73m2 * Constanza Turcios 11/26/2024 11:47 :49 AM >See phone encounter ?LAB: P-Lipid Panel (Collection Date & Time - 11/24/2024 01:35 PM)?trigs 211, hdl 38* Value Reference Range C holesterol / HDL Ratio 3.68 0.00-4.99 - Ratio * C holesterol 140 <200 - mg/dL * H DL Cholesterol 38 L >39 - mg/dL * L DL Cholesterol (Calculation) 60 <130 - mg/d L * L DL/HDL Ratio 1.6 <3.3 - Ratio * N on-HDL Cholesterol 102 <130 - mg/dL * T riglycerides 211 H <150 - mg/dL * Constanza Turcios 11/26/2024 11:47 :49 AM >See phone encounter 4.?Gout, unspecified cause, unspecified chronicity, unspecified site?LAB: P-Uric Acid (Collection Date & Time - 11/24/2024 01:35 PM)?Normal* Value Reference Range U bekah Acid 4.0 3.4-8.0 - mg/dL * Tam,Constanza 11/26/2024 11:47 :49 AM >See phone encounter * Labs: * L ab: Estimated Average Glucose (Collection Date & Time - 11/24/2024 01:35 PM) 1 71 Value Reference Range E stimated Average Glucose 171 - mg/dL * [facility], IT support 11/25/2024 04:20:14 : This order was created by the Interface. TamConstanza urbina 11/26/2024 11:47:49 AM >See phone encounter * Procedure Codes: G 2211 Complex e/[place], [address] GLUCOSE TEST, 3051F HG A1C>EQUAL 7.0%<8.0%, G8752 MOST RECENT SYSTOLIC BP < 140MM HG, G8754 MOST RECENT DIASTOLIC BP < 90MM HG * Follow Up: 6 Months * Images: Billing Information: * Visit Code: 52491 Office Visit, Est Pt., Level 4. * Procedure Codes: G2211 Complex e/[place]. [address] GLUCOSE TEST. 3051F HG A1C>EQUAL 7.0%<8.0%. G8752 MOST RECENT SYSTOLIC BP < 140MM HG. G8754 MOST RECENT DIASTOLIC BP < 90MM HG. * Electronic signature of Peggy Garcia MD on 08/20/2025 at 08:09 AM EST Sign off status: Pending * Provider: Franky Garcia M.D. Date: 0 11/24/2024 Generated for Candido ram/Katherine/Mckenzieransmitting on: 1 10/21/2024 08:09 AM EST History and Physical Notes * HPI (History of Present Illness) Category Sub-Category Detail Notes Category Not es Endocrinology Recent Blood Sugars Pt here to f/u DM 2 Cardiology Blood Pressure Elevated Pt here for 6 mo f/u on hypertension, states he is doing well and does not have any concerns Hyperlipidemia Pt is fasting today Examination Category Sub-Category Detail Notes Category Not es Endocrinology Heart: RSR Lungs: clear to auscultatio n Extremities: no leg edema General Appearance: NAD
--- OUTSIDE RECORDS SUMMARY | 2025-02-26 05:30 | XMS_ITS ---
Author Organization [facility] Address [address] [place] [id number] Care Team Providers Care Shell Mold Bonding Machine Operator Name Role Phone Harshal Garcia Primary Care Provider Osman Aparicio Unavailable [phone] Allergies No Known Allergies Results Component Value Reference Range Notes X ray : Spine, thoracic spin e Reviewed date:02/28/2025 05:02:40 PM Interpretation:mild degenerative change Performing Lab: Notes/Report: mild degenerative change REASON FOR VISIT pain in arm and back Medications Medication SIG (Take, Route, Frequency, Duration) Notes Start Date End Date Status Simvastatin 20 MG Take 1 Tablet by reshma th once daily at bedtime.; Duration: 90 Active Spironolactone 25 MG Take 1 Tablet by mo uth once daily.; Duration: 90 Active metFORMIN HCl 1000 MG Take 1 Tablet by m outh twice daily with a meal.; Duration: 90 Active Losartan Potassium 100 MG Take 1 Tablet by mouth once daily.; Duration: 90 Active Tamsulosin HCl 0.4 MG Take 1 Capsule by mouth once daily.; Duration: 90 Active Accu-Chek Softclix Lancets - USE TO TEST BLOOD SUGAR TWICE DAILY; Duration: 30 Active Allopurinol 300 MG 1 tab(s) orally once a day; Duration: 90 days Active Jardiance 25 MG TAKE 1 TABLET BY RESHMA TH DAILY; Duration: 30 Active Pioglitazone HCl 30 MG 1 tablet Orally O nce a day; Duration: 90 days Active Ozempic (1 MG/DOSE) 4 MG/3ML 1 mg Subcutaneous once weekly 12/18/2024 Active Multivitamin - 1 tab(s) orally once a day Active CPAP machine and supplies - as directed as directed Active Accu-Chek Jaz Plus - Use to check bloo d sugar twice daily as directed.; Duration: 25 Active Vital Signs Blood pressure systolic 122 mm Hg 02/27/20 25 Blood pressure diastolic 70 mm Hg 025 Heart Rate 79 /min 02/26/2025 Height 65.5 in 02/26/2025 Weight 256 lbs 02/26/2025 BMI 41.95 kg/m2 02/26/2025 Encounters Encounter Location Date Provider Diagnosis [facility] [address] [facility] [address] [place], [place] [id number] 02/26/2025 Harshal Jose Pain, upper back M54 .9 and Pain in left elbow M25.522 Assessments Encounter Date Diagnosis (ICD Code) Assessment Notes Treatment Notes Treatment Clinical Notes Section Notes 02/26/2025 Pain, upper back (ICD-10 - M54.9) heating pad to affected areas 2 to 3 times a day TENS unit OTC recommended 02/26/2025 Pain in left elbow (ICD-10 - M25.522) Plan Of Treatment Treatment Notes Assessment Notes Pain, upper back heating pad to affec edgar areas 2 to 3 times a day TENS unit OTC recommended Next Appt Details Follow Up: via phone to repo rt test results, Reason: Provider Name:Harshal Lee ry, 10/31/2025 09:45:00 AM, [address] [facility], [address], [place], [place], [id number], Progress Notes * BEJNA SIMS SDOB:[birth year] (65 yo M)Acc No.[id number]:02/26/2025 Progress Notes Patient: BENJA UGALDE Provider: Franky Garcia M.D. :1960 A ge:65 Y S ex:Male Date:02/26/2025 Address:[address] [place] [address] Subjective: * Chief Complaints: * 1 . Pain in arm and back. * HPI: E lbow/Arm: 65 year old male presents with c/o pain P t complains of pain in lt arm for a couple weeks. N darin: c/o pain P t complains of pain in back of lower neck for a couple weeks. * ROS: D ERMATOLOGY: no R anselmo. [...] . * Hospitalization/Major Diagno stic Procedure: P eddieia . * Family History: F ather: . M other: . 1 sister(s) . 2 daughter(s) . . * Social History: C URRENT TOBACCO USE: No . C affeine: yes, frequency:coffee. Exercise: no. Marital Status: . Past smoking status: no, Smoking status: Does not smoke, Former Smoker: No. Travel ouside [place]: no. * Medications: T aking CPAP machine and supplies - - as directed as directed , Taking Multivitamin - Tablet 1 tab(s) orally once a day , Taking Accu-Chek Jaz Plus - Strip Use to check blood sugar twice daily as directed. , Taking Accu-Chek Softclix Lancets - Miscellaneous USE TO TEST BLOOD SUGAR TWICE DAILY , Taking Allopurinol 300 MG Tablet 1 tab(s) orally once a day , Taking Pioglitazone HCl 30 MG Tablet 1 tablet Orally Once a day , Taking Jardiance 25 MG Tablet TAKE 1 TABLET BY MOUTH DAILY , Taking Ozempic (1 MG/DOSE) 4 MG/3ML Solution Pen-injector 1 mg Subcutaneous once weekly , Taking metFORMIN HCl 1000 MG Tablet Take 1 Tablet by mouth twice daily with a meal. , Taking Tamsulosin HCl 0.4 MG Capsule Take 1 Capsule by mouth once daily. , Taking Losartan Potassium 100 MG Tablet Take 1 Tablet by mouth once daily. , Taking Spironolactone 25 MG Tablet Take 1 Tablet by mouth once daily. , Taking Simvastatin 20 MG Tablet Take 1 Tablet by mouth once daily at bedtime. , Medication List reviewed and reconciled with the patient * Allergies: N .K.D.A. Objective: * Vitals: W t: 256, Temp: 97.9, BP: 122/70, HR: 79, Nurse: kk, Ht: 65.5, BMI:41.95. * Examination: G eneral Examination: General Appearance: N AD. U pper Back: Vertebral spine tenderness: p resent on upper thoracic spine. P araspinal muscle spasm: p resent on left side. E lbow/Arm: Elbow: l eft. I nspection: n o swelling, redness or deformities. P alpation: n o tenderness on radial head or epicondyles. R juan miguel of motion: n ormal flexion and extension. Assessment: * Assessment: 1. P ain, upper back - M54.9 (Primary) 2 . P ain in left elbow - M25.522? Plan: * Treatment: Notes: heating pad to affected areas 2 to 3 times a day TENS unit OTC recommended?? * Procedure Codes: G 2211 Complex e/m visit add on, 1036F TOBACCO NON-USER, G8783 BP SCR PRFRM RCMDD DEFIND SCR INTVL, G8752 MOST RECENT SYSTOLIC BP < 140MM HG, G8754 MOST RECENT DIASTOLIC BP < 90MM HG * Follow Up: v ia phone to report test results * Images: Billing Information: * Visit Code: 27532 Office Visit, Est Pt., Level 3. * Procedure Codes: G2211 Complex e/m visit add on. 1036F TOBACCO NON-USER. G8783 BP SCR PRFRM RCMDD DEFIND SCR INTVL. G8752 MOST RECENT SYSTOLIC BP < 140MM HG. G8754 MOST RECENT DIASTOLIC BP < 90MM HG. * Electronic signature of Peggy Garcia MD on 08/20/2025 at 08:09 AM EST Sign off status: Pending * Provider: Franky Garcia M.D. Date: 0 02/26/2025 Generated for Candido ram/Katherine/Rosalinda on: 10/21/2024 08:09 AM EST History and Physical Notes * HPI (History of Present Illness) Category Sub-Category Detail Notes Category Not es Neck pain Pt complains of pain in back of lower neck for a couple weeks Elbow/Arm pain Pt complains of pain in lt arm for a couple weeks Examination Category Sub-Category Detail Notes Category Not es General Examination General Appearance: NAD Upper Back Vertebral spine tenderness: present on upper thoracic spine Paraspinal muscle spasm: present on left side Elbow/Arm Palpation: no tenderness on radial head or epicondyles Elbow: left Inspection: no swelling, redness or deformities Range of motion: normal flexion and e xtension
--- OUTSIDE RECORDS SUMMARY | 2025-03-28 10:30 | XMS_ITS ---
Author Organization [facility] Address [address] [facility] [address] [place] [id number] Care Team Providers Care Auto Body Estimator Name Role Phone Harshal Garcia Primary Care Provider Osman Aparicio Unavailable [phone] Allergies No Known Allergies Results Component Value Reference Range Notes Urinalysis - Inhouse Reviewed date:03/29/2025 08:07:21 AM Interpretation: Performing Lab: Notes/Report: Color/Clarity Yellow/Clear Leuk Neg Nitrite Neg Urobili 3.2 Protein Neg pH 6.5 Blood Neg Sp. Gr. 1.015 Ketone Neg Bili Neg Gluc 2+ REASON FOR VISIT poss.UTI Medications Medication SIG (Take, Route, Frequency, Duration) Notes Start Date End Date Status Accu-Chek Softclix Lancets - USE TO TEST BLOOD SUGAR TWICE DAILY; Duration: 30 Active Multivitamin - 1 tab(s) orally once a day Active Accu-Chek Jaz Plus - Use to check blood sugar twice daily as directed.; Duration: 25 Active Diclofenac Sodium 75 MG 1 tablet as needed Orally Twice a day Active CPAP machine and supplies - as directed as directed Active Simvastatin 20 MG Take 1 Tablet by mouth once daily at bedtime.; Duration: 90 Active Allopurinol 300 MG 1 tab(s) orally once a day; Duration: 90 days Active Tamsulosin HCl 0.4 MG 1 capsule Orally Once a day; Duration: 90 days Active Fluconazole 100 MG 1 tablet Orally daily; Duration: 5 days Patient to hold Simvastatin x 7 days 03/28/2025 Active Pioglitazone HCl 30 MG TAKE 1 TABLET BY MOUTH DAILY; Duration: 90 Active Losartan Potassium 100 MG Take 1 Tablet by mouth once daily.; Duration: Active Spironolactone 25 MG Take 1 Tablet by mouth once daily.; Duration: Active Ozempic (1 MG/DOSE) 4 MG/3ML 1 mg Subcutaneous once weekly 12/18/2024 Active metFORMIN HCl 1000 MG Take 1 Tablet by mouth twice daily with a meal.; Duration: Active Jardiance 25 MG TAKE 1 TABLET BY MOUTH DAILY; Duration: 30 Active Vital Signs Blood pressure systolic 130 mm Hg 03/28/20 25 Blood pressure diastolic 70 mm Hg 025 Heart Rate 93 /min 03/28/2025 Height 65.5 in 03/28/2025 Weight 247.6 lbs 03/28/2025 BMI 40.57 kg/m2 03/28/2025 Encounters Encounter Location Date Provider Diagnosis [facility] 36 [facility] [address] [place], [place] [id number] 03/28/2025 Harshal Garcia Dysuria R30.0 Assessments Encounter Date Diagnosis (ICD Code) Assessment Notes Treatment Notes Treatment Clinical Notes Section Notes 03/28/2025 Dysuria (ICD-10 - R30.0) 03/28/2025 Other Hold SImvastati n for the next 7 days Plan Of Treatment Medication Medication Name Sig Start Date Stop Date Notes Fluconazole 100 MG 1 tablet Orally daily; Duration: 5 days 03/28/2025 Patient to hold Simvastatin x 7 days Treatment Notes Assessment Notes Other Hold SImvastatin for the next 7 days Next Appt Details Follow Up: via phone to repo rt progress, Reason: Provider Name:Harshal Lee ry, 10/31/2025 09:45:00 AM, [address] [facility] 36 [facility], [address], [place], [place], [id number], Progress Notes * BENJA SIMS SDOB:[birth year] (65 yo M)Acc No.[id number]:03/28/2025 Progress Notes Patient: Vladimir BRENDACHARLEEN BENJA Anastasia Provider: Franky Garcia M.D. :1960 A ge:65 Y S ex:Male Date:03/28/2025 Address:[address] [place], [place] [id number] Subjective: * Chief Complaints: * 1 . poss.UTI. * HPI: U rology: 65 year old male presents with c/o burning sensation P t states it that he been having burning before and during using the bathroom. Pt states this stared 2 days ago. * ROS: C ARDIOLOGY: no D izziness. [...] ouside US: no. * Medications: T aking Diclofenac Sodium 75 MG Tablet Delayed Release 1 tablet as needed Orally Twice a day , Taking CPAP machine and supplies - - as directed as directed , Taking Multivitamin - Tablet 1 tab(s) orally once a day , Taking Accu-Chek Jaz Plus - Strip Use to check blood sugar twice daily as directed. , Taking Accu-Chek Softclix Lancets - Miscellaneous USE TO TEST BLOOD SUGAR TWICE DAILY , Taking Jardiance 25 MG Tablet TAKE 1 TABLET BY MOUTH DAILY , Taking Ozempic (1 MG/DOSE) 4 MG/3ML Solution Pen-injector 1 mg Subcutaneous once weekly , Taking metFORMIN HCl 1000 MG Tablet Take 1 Tablet by mouth twice daily with a meal. , Taking Losartan Potassium 100 MG Tablet Take 1 Tablet by mouth once daily. , Taking Spironolactone 25 MG Tablet Take 1 Tablet by mouth once daily. , Taking Simvastatin 20 MG Tablet Take 1 Tablet by mouth once daily at bedtime. , Taking Allopurinol 300 MG Tablet 1 tab(s) orally once a day , Taking Pioglitazone HCl 30 MG Tablet TAKE 1 TABLET BY MOUTH DAILY , Taking Tamsulosin HCl 0.4 MG Capsule 1 capsule Orally Once a day , Medication List reviewed and reconciled with the patient * Allergies: N .K.D.A. Objective: * Vitals: W t: 247.6, Temp: 98.7, BP: 130/70, HR: 93, Nurse: jose francisco, Ht: 65.5, BMI:40.57. * Examination: G eneral Examination: General Appearance: N AD. H eart: R SR. L ungs:?clear to auscultation. B ack: n o CVA tenderness. Assessment: * Assessment: 1. D ysuria - R30.0 (Primary) Plan: * Treatment: Value Reference Range C olor/Clarity Yellow/Clear * L euk Neg * N itrite Neg * U robili 3.2 * P rotein Neg * p H 6.5 * B lood Neg * S p. Gr. 1.015 * K etone Neg * B leah Neg * G milana 2+ * Araceli Parish 03/28/2025 03:26: 57 PM EDT > Provider reviewed results while patient in office. 2.?Others? Notes: Hold SImvastatin for the next 7 days?? * Procedure Codes: G 2211 Complex e/m visit add on, 1036F TOBACCO NON-USER, G8783 BP SCR PRFRM RCMDD DEFIND SCR INTVL, G8752 MOST RECENT SYSTOLIC BP < 140MM HG, G8754 MOST RECENT DIASTOLIC BP < 90MM HG * Follow Up: v ia phone to report progress * Images: Billing Information: * Visit Code: 37452 Office Visit, Est Pt., Level 3. * [...] * Provider: Franky Garcia M.D. Date: 0 03/28/2025 Generated for Candido ram/Katherine/Sitasmitting on: 10/21/2024 08:09 AM EST History and Physical Notes * HPI (History of Present Illness) Category Sub-Category Detail Notes Category Not es Urology burning sensation Pt states it t hat he been having burning before and during using the bathroom. Pt states this stared 2 days ago Examination Category Sub-Category Detail Notes Category Not es General Examination Heart: RSR Lungs: clear to auscultatio n General Appearance: NAD Back: no CVA tenderness
--- OUTSIDE RECORDS SUMMARY | 2025-05-03 04:30 | XMS_ITS ---
[facility] Address [address] [place] [id number] Care Team Providers Care Claim Rep Name Role Phone Harshal Garcia Primary Care Provider [phone] Osman Aparicio Unavailable [phone] Allergies No Known Allergies Results Component Value Reference Range Notes Urinalysis - Inhouse Reviewed date:05/03/2025 11:21:17 PM Interpretation: Performing Lab: Notes/Report: Color/Clarity Yellow/clear Leuk Neg Nitrite Neg Urobili 3.2 Protein Neg pH 5.5 Blood Neg Sp. Gr. 1.015 Ketone Neg Bili Neg Gluc 2+ Glycohemoglobin A1c (in hous e) Reviewed date:05/03/2025 11:21:08 PM Interpretation:6.3 Performing Lab: Notes/Report: 6.3 glycohemoglobin 6.3% 5 - 6.5 % REASON FOR VISIT CDL CPX Medications Medication SIG (Take, Route, Frequency, Duration) Notes Start Date End Date Status Accu-Chek Softclix Lancets - USE TO TEST BLOOD SUGAR TWICE DAILY; Duration: 30 Active Accu-Chek Jaz Plus - Use to check blood sugar twice daily as directed.; Duration: 25 Active Multivitamin - 1 tab(s) orally once a day Active CPAP machine and supplies - as directed as directed Active Jardiance 25 MG TAKE 1 TABLET BY MOUTH DAILY; Duration: 30 Active Diclofenac Sodium 75 MG 1 tablet as needed Orally Twice a day Active Pioglitazone HCl 30 MG TAKE 1 TABLET BY MOUTH DAILY; Duration: 90 Active Simvastatin 20 MG Take 1 Tablet by mouth once daily at bedtime.; Duration: 90 Active Fluconazole 100 MG 1 tablet Orally daily; Duration: 5 days Patient to hold Simvastatin x 7 days 03/28/2025 Active Tamsulosin HCl 0.4 MG 1 capsule Orally Once a day; Duration: 90 days Active Allopurinol 300 MG 1 tab(s) orally once a day; Duration: 90 days Active Spironolactone 25 MG Take 1 Tablet by mouth once daily.; Duration: 90 Active Losartan Potassium 100 MG Take 1 Tablet by mouth once daily.; Duration: 90 Active metFORMIN HCl 1000 MG Take 1 Tablet by mouth twice daily with a meal.; Duration: 90 Active Ozempic (1 MG/DOSE) 4 MG/3ML 1 mg Subcutaneous once weekly 12/18/2024 Active Vital Signs Blood pressure systolic 130 mm Hg 05/03/20 25 Blood pressure diastolic 70 mm Hg 025 Heart Rate 78 /min 05/03/2025 Height 65.5 in 05/03/2025 Weight 254.2 lbs 05/03/2025 BMI 41.65 kg/m2 05/03/2025 Encounters Encounter Location Date Provider Diagnosis [facility] [address] [place] [id number] 05/03/2025 Harshal Garcia 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 * ROS: D ERMATOLOGY: no R anselmo. [...] 2 . * Hospitalization/Major Diagno stic Procedure: Vivian elizondo . * Family History: F ather: . [...] Tablet by mouth once daily. , Taking Allopurinol 300 MG Tablet 1 tab(s) orally once a day , Taking Pioglitazone HCl 30 MG Tablet TAKE 1 TABLET BY MOUTH DAILY , Taking Tamsulosin HCl 0.4 MG Capsule 1 capsule Orally Once a day , Taking Fluconazole 100 MG Tablet 1 tablet Orally daily , Notes to Pharmacist: Patient to hold Simvastatin x 7 days, Taking Simvastatin 20 MG Tablet Take 1 Tablet by mouth once daily at bedtime. , Medication List reviewed and reconciled with the patient * Allergies: N .K.D.A. Objective: * Vitals: W t: 254.2, Temp: 97.8, BP: 130/70, HR: 78, Nurse: KELVIN, Ht: 65.5, Visual Acuity: Left eye:20/30, Right eye:20/25, Both eyes:20/20, Color:Pass, BMI:41.65. * Examination: G eneral Examination: General Appearance: N AD. H EENT: u nremarkable.?Oral cavity: n o lesions, mucosa moist and WNL, no erythema. N darin: s upple, no lymphadenopathy. C hest: n ormal shape and expansion. H eart: R SR. L ungs: c lear to auscultation. A bdomen: b owel sounds present, obese, soft and nontender. N eurologic Exam: I ntact, gait normal. S kin: n ormal, no rash. P eripheral pulses: n ormal (2+) bilaterally. E xtremities: n o leg edema. Assessment: * Assessment: 1. E ncounter for Department of Transportation (DOT) examination for [place] license - Z02.4 (Primary) Plan: * Treatment: Value Reference Range C olor/Clarity Yellow/clear * L euk Neg * N itrite Neg * U robili 3.2 * P rotein Neg * p H 5.5 * B lood Neg * S p. Gr. 1.015 * K etone Neg * B leah Neg * G milana 2+ * Araceli Parish 05/03/2025 09:34:5 2 AM EDT > Provider reviewed results while patient in office.Harshal Garcia 05/03/2025 11:21:13 PM EDT > * Labs: * L ab: Glycohemoglobin A1c (in house) (Collection Date & Time - 05/03/2025) 6 .3 Value Reference Range g lycohemoglobin 6.3% 5 - 6.5 % * Araceli Parish 05/03/2025 10:29:2 8 AM EDT >Harshal Garcia 05/03/2025 11:21:03 PM EDT > * Procedure Codes: 8 1002 Urinalysis, no micro, 63386 VISUAL ACUITY SCREEN * Follow Up: 6 Months * Images: Billing Information: * Visit Code: 65284 Preventive Care Est Pt. Age 65 and over. * Procedure Codes: 90726 Urinalysis, no micro. 93261 VISUAL ACUITY SCREEN. * Electronic signature of Peggy Garcia MD on 08/20/2025 at 08:10 AM EST Sign off status: Pending * Provider: Franky Garcia M.D. 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
--- OUTSIDE RECORDS SUMMARY | 2025-06-26 08:30 | XMS_ITS ---
[facility] Address [address] [facility] [address] [place] [id number] Care Team Providers Care Packager Head Name Role Phone Harshal Garcia Primary Care Provider Osman Aparicio Unavailable [phone] REASON FOR VISIT flu vaccine Medications Medication SIG (Take, Route, Frequency, Duration) Notes Start Date End Date Status Losartan Potassium 100 MG Take 1 Tablet by mouth once daily.; Duration: 90 Active Spironolactone 25 MG Take 1 Tablet by mouth once daily.; Duration: 90 Active Allopurinol 300 MG 1 tab(s) orally once a day; Duration: 90 days Active Fluconazole 100 MG 1 tablet Orally daily; Duration: 5 days Patient to hold Simvastatin x 7 days 03/28/2025 Active Simvastatin 20 MG Take 1 Tablet by mouth once daily at bedtime.; Duration: 90 Active Diclofenac Sodium 75 MG 1 tablet as needed Orally Twice a day Active Accu-Chek Jaz Plus - Use to check bloo d sugar twice daily as directed.; Duration: 25 Active Accu-Chek Softclix Lancets - USE TO TEST BLOOD SUGAR TWICE DAILY; Duration: 30 Active CPAP machine and supplies - as directed as directed Active Multivitamin - 1 tab(s) orally once a day Active Jardiance 25 MG Take 1 Tablet by mouth once daily.; Duration: 30 Active Ozempic (1 MG/DOSE) 4 MG/3ML Inject 1 mg under the skin once weekly.; Duration: 28 Active Tamsulosin HCl 0.4 MG Take 1 Capsule by mouth once daily.; Duration: 90 Active Pioglitazone HCl 30 MG Take 1 Tablet by mouth once daily.; Duration: 90 Active metFORMIN HCl 1000 MG Take 1 Tablet by mouth twice daily with a meal.; Duration: 90 Active Immunizations Vaccine Route Administration Date Status Comme nts Fluzone High Dose (65yr and older) IM Intramuscular 06/26/2025 Administered Encounters Encounter Location Date Provider Diagnosis [facility] [address] [facility] [address] [facility] [address] [place] [phone] 06/26/2025 Harshal Garcia Encounter for immunization Z23 Assessments Encounter Date Diagnosis (ICD Code) Assessment Notes Treatment Notes Treatment Clinical Notes Section Notes 06/26/2025 Encounter for immunization (ICD-10 - Z23) Plan Of Treatment Next Appt Details Provider Name:Harshal Lee ry, 10/31/2025 09:45:00 AM, [facility], [address], [place], [id number], Progress Notes * BENJA SIMS SDOB:[birth year] (65 yo M)Acc No.[id number]:06/26/2025 Patient: Vladimir BENJA VAN Provider: Franky Garcia M.D. :1960 A ge:65 Y S ex:Male Date:06/26/2025 Address:[address] [place], [place] [phone] Subjective: * Chief Complaints: * 1 . Flu vaccine. * Medical History: * Medications: T aking Diclofenac Sodium 75 [...] TEST BLOOD SUGAR TWICE DAILY , Taking Losartan Potassium 100 MG Tablet Take 1 Tablet by mouth once daily. , Taking Spironolactone 25 MG Tablet Take 1 Tablet by mouth once daily. , Taking Allopurinol 300 MG Tablet 1 tab(s) orally once a day , Taking Fluconazole 100 MG Tablet 1 tablet Orally daily , Notes to Pharmacist: Patient to hold Simvastatin x 7 days, Taking Simvastatin 20 MG Tablet Take 1 Tablet by mouth once daily at bedtime. , Taking Jardiance 25 MG Tablet Take 1 Tablet by mouth once daily. , Taking Ozempic (1 MG/DOSE) 4 MG/3ML Solution Pen-injector Inject 1 mg under the skin once weekly. , Taking Pioglitazone HCl 30 MG Tablet Take 1 Tablet by mouth once daily. , Taking metFORMIN HCl 1000 MG Tablet Take 1 Tablet by mouth twice daily with a meal. , Taking Tamsulosin HCl 0.4 MG Capsule Take 1 Capsule by mouth once daily. , Medication List reviewed and reconciled with the patient Objective: * Vitals: Assessment: * Assessment: 1. E ncounter for immunization - Z23 (Primary) Plan: * Treatment: * Immunizations: Fluzone High Dose (65yr and older) : 0.5 mL (Route: Intramuscular) given by Chayito Jones on Right Deltoid (Encounter for immunization) * Images: Billing Information: * Visit Code: * Procedure Codes: * Electronic signature of Peggy Garcia MD on 08/20/2025 at 08:09 AM EST Sign off status: Pending * Provider: Franky Garcia M.D. Date: Generated for Candido ram/Katherine/Rosalinda on: 10/21/2024 08:09 AM EST
--- OUTSIDE RECORDS SUMMARY | 2025-08-15 10:15 | XMS_ITS ---
Author Organization [facility] Address [address] [facility] [address] [place] [id number] Care Team Providers Care Sixth Grade Teacher Name Role Phone Harshal Garcia Primary Care Provider Osman Aparicio Unavailable [phone] Allergies No Known Allergies Results Component Value Reference Range Notes CBC Venipuncture (in house) Reviewed date:08/15/2025 08:50:02 PM Interpretation: Performing Lab: Notes/Report: wbc 8.8 3.5 - 10 lymph 22.6% 15 - 50 mid 6.1% 2 - 15 gran 71.3% 35 - 80 rbc 5.71 3.5 - 5.5 hgb 16.8 11.5 - 16.5 hct 52.3 35 - 55 mcv 91.5 75 - 100 mch 29.5 25 - 35 mchc 32.2 31 - 38 platlet 231 100 - 400 P-Amylase Reviewed date:08/17/2025 01:09:40 PM Interpretation:Normal Performing Lab: Notes/Report: Test performed by [facility] [address] [place] [address] , [place] [address] Daniel Garber MD, PhD, AP, Youth Manager CLIA: [id number] Amylase 61 28-100 U/L P-Comprehensive Metabolic Pa jeanne (CMP) Reviewed date:08/17/2025 01:09:40 PM Interpretation:Normal Performing Lab: Notes/Report: Test performed by [facility] [address] [place] [address] , [address], [place] [address] Daniel Garber MD, PhD, FCAP, Youth Manager CLIA: [id number] Sodium 140 135-145 mmol/L Potassium 5.0 3.5-5.3 mmol/L Chloride 101 97-108 mmol/L CO2 23 20-32 mmol/L Glucose 95 65-99 mg/dL BUN 12 8-23 mg/dL Creatinine 0.84 0.70-1.30 mg/dL Calcium 10.0 8.6-10.4 mg/dL eGFR by Creatinine 96 >59 mL/min/1.73m2 Protein 7.4 6.0-8.3 g/dL Albumin 5.3 3.5-5.3 g/dL Alkaline Phosphatase 90 44-138 IU/L ALT (SGPT) 22 <5-55 IU/L AST (SGOT) 16 <5-46 IU/L Bilirubin, Total 0.3 <0.2-1.2 mg/dL A/G Ratio 2.5 1.1-2.5 P-Lipase Reviewed date:08/17/2025 01:09:40 PM Interpretation:Normal Performing Lab: Notes/Report: Test performed by [facility] [address] , [address], [place] [address] Daniel Garber MD, PhD, [facility], Youth Manager CLIA: [id number] Lipase 38.3 13.0-60.0 U/L REASON FOR VISIT stomach issues Medications Medication SIG (Take, Route, Frequency, Duration) Notes Start Date End Date Status Losartan Potassium 100 MG Take 1 Tablet by mouth once daily.; Duration: 90 Active Spironolactone 25 MG Take 1 Tablet by mo uth once daily.; Duration: 90 Active Accu-Chek Jaz Plus - Use to check bloo d sugar twice daily as directed.; Duration: 25 Active Simvastatin 20 MG Take 1 Tablet by cathie th once daily at bedtime.; Duration: 90 Active Tamsulosin HCl 0.4 MG Take 1 Capsule by mouth once daily.; Duration: 90 Active Omeprazole Magnesium 20 MG 1 tablet 1/2 to 1 hour before morning meal Orally Once a day 08/15/2025 Active metFORMIN HCl 1000 MG Take 1 Tablet by m outh twice daily with a meal.; Duration: 90 Active Pioglitazone HCl 30 MG Take 1 Tablet by mouth once daily.; Duration: 90 Active Ozempic (1 MG/DOSE) 4 MG/3ML Inject 1 mg under the skin once weekly.; Duration: 28 Active Jardiance 25 MG Take 1 Tablet by cathie th once daily.; Duration: 30 Active Allopurinol 300 MG 1 tab(s) orally once a day; Duration: 90 days Active CPAP machine and supplies - as directed as directed Active Accu-Chek Softclix Lancets - USE TO TEST BLOOD SUGAR TWICE DAILY; Duration: 30 Active Multivitamin - 1 tab(s) orally once a day Active Diclofenac Sodium 75 MG 1 tablet as need ed Orally Twice a day Active Vital Signs Blood pressure systolic 122 mm Hg 08/15/20 25 Blood pressure diastolic 62 mm Hg 025 Heart Rate 83 /min 08/15/2025 Height 65.5 in 08/15/2025 Weight 250.6 lbs 08/15/2025 BMI 41.06 kg/m2 08/15/2025 Encounters Encounter Location Date Provider Diagnosis [facility] [address] [place] [id number] 08/15/2025 Harshal Garcia Epigastric abdominal pain R10.13 and Heartburn R12 Assessments Encounter Date Diagnosis (ICD Code) Assessment Notes Treatment Notes Treatment Clinical Notes Section Notes 08/15/2025 Epigastric abdominal pain (ICD-10 - R10.13) 08/15/2025 Heartburn (ICD-10 - R12) Plan Of Treatment Medication Medication Name Sig Start Date Stop Date Notes Omeprazole Magnesium 20 MG 1 tablet 1/2 to 1 hour before morning meal Orally Once a day 08/15/2025 Pending Test Test Name Order Date Ultrasound : Abdomen limited 08/15/2025 Next Appt Details Follow Up: via phone to repo rt test results, Reason: Provider Name:Harshal Lee ry, 10/31/2025 09:45:00 AM, [address], [address], [place], [phone], Progress Notes * BENJA SIMS SDOB:[birth year] (65 yo M)Acc No.[id number]:08/15/2025 Progress Notes Patient: Vladimir BENJA VAN Anastasia Provider: Franky Garcia M.D. :1960 A ge:65 Y S ex:Male Date:08/15/2025 Address:[address] [place] [address] Subjective: * Chief Complaints: * 1 . Stomach issues. * HPI: G astroenterology: 65 year old male presents with c/o Abdominal Pain P t states he is having stomach pain in the middle of his stomach. Pt states this started 1 week ago . ? * Medical History: H yperlipidemia, Hypertension, Diabetes [...] orally once a day , Taking Accu-Chek Softclix Lancets - Miscellaneous USE TO TEST BLOOD SUGAR TWICE DAILY , Taking Allopurinol 300 MG Tablet 1 tab(s) orally once a day , Taking Jardiance 25 MG Tablet Take [...] Capsule by mouth once daily. , Taking Spironolactone 25 MG Tablet Take 1 Tablet by mouth once daily. , Taking Losartan Potassium 100 MG Tablet Take 1 Tablet by mouth once daily. , Taking Simvastatin 20 MG Tablet Take 1 Tablet by mouth once daily at bedtime. , Taking Accu-Chek Jaz Plus - Strip Use to check blood sugar twice daily as directed. , Discontinued Fluconazole 100 MG Tablet 1 tablet Orally daily , Medication List reviewed and reconciled with the patient * Allergies: N .K.D.A. Objective: * Vitals: W t: 250.6, Temp: 97.6, BP: 122/62, HR: 83, Nurse: tosha, Ht: 65.5, BMI:41.06. * Examination: G astroenterology: General Appearance: p leasant, NAD. O ral cavity: n ormal. S clera: a nicteric. H eart sounds: r egular, normal S1 S2. L ungs: c lear, no rales or wheezes. A bdomen: B S present, soft, nontender, no guarding or rigidity, no masses felt. Assessment: * Assessment: 1. E pigastric abdominal pain - R10.13 (Primary) 2 . H eartburn - R12 ? Plan: * Treatment: Value Reference Range A mylase 61 28-100 - U/L * Brooke Patterson 08/17/2025 01 :08:51 PM EST >pt informed ?LAB: P-Comprehensive Metabolic Panel (CMP) (Collection Date & Time - 08/15/2025 03:15 PM)?Normal* Value Reference Range A /G Ratio 2.5 H 1.1-2.5 - * A lbumin 5.3 3.5-5.3 - g/dL * A lkaline Phosphatase 90 44-138 - IU/L * A LT (SGPT) 22 <5-55 - IU/L * A ST (SGOT) 16 <5-46 - IU/L * B ilirubin, Total 0.3 <0.2-1.2 - mg/dL * B UN 12 8-23 - mg/dL * C alcium 10.0 8.6-10.4 - mg/dL * C hloride 101 97-108 - mmol/L * C O2 23 20-32 - mmol/L * C reatinine 0.84 0.70-1.30 - mg/dL * G lucose 95 65-99 - mg/dL * P otassium 5.0 3.5-5.3 - mmol/L * S odium 140 135-145 - mmol/L * P rotein 7.4 6.0-8.3 - g/dL * e GFR by Creatinine 96 >59 - mL/min/1.73m2 * Brooke Patterson 08/17/2025 01 :08:51 PM EST >pt informed ?LAB: P-Lipase (Collection Date & Time - 08/15/2025 03:15 PM)?Normal* Value Reference Range L ipase 38.3 13.0-60.0 - U/L * Brooke Patterson 08/17/2025 01 :08:51 PM EST >pt informed ?LAB: CBC Venipuncture (in house) (Collection Date & Time - 08/15/2025)* Value Reference Range w bc 8.8 3.5 - 10 * l ymph 22.6% 15 - 50 * m id 6.1% 2 - 15 * g ran 71.3% 35 - 80 * r bc 5.71 3.5 - 5.5 * h gb 16.8 11.5 - 16.5 * h ct 52.3 35 - 55 * m cv 91.5 75 - 100 * m ch 29.5 25 - 35 * m chc 32.2 31 - 38 * p latlet 231 100 - 400 * Araceli Parish 08/15/2025 04:20 :57 PM EST >Harshal Garcia 08/15/2025 08:49:56 PM EST > ?Imaging: Ultrasound : Abdomen limited* Elvie Leyva 08/15/2025 04: 00:03 PM EST > faxed to [facility] Scheduling 2.?Heartburn? Start Omeprazole Magnesium Tablet Delayed Release, 20 MG, 1 tablet 1/2 to 1 hour before morning meal, Orally, Once a day.?? * Procedure Codes: G 2211 Complex e/[place], [address] CBC WITH AUTO DIFF, G8783 BP SCR PRFRM RCMDD DEFIND SCR INTVL, G8752 MOST RECENT SYSTOLIC BP < 140MM HG, G8754 MOST RECENT DIASTOLIC BP < 90MM HG, 3074F SYST BP LT 130 MM HG, 3078F DIAST BP < 80 MM HG * Follow Up: v ia phone to report test results * Images: Drawin08/15/25 [facility] Billing Information: * Visit Code: 65982 Office Visit, Est Pt., Level 4. * Procedure Codes: G2211 Complex e/[place] [address] CBC WITH AUTO DIFF. G8783 BP SCR PRFRM RCMDD DEFIND SCR INTVL. G8752 MOST RECENT SYSTOLIC BP < 140MM HG. G8754 MOST RECENT DIASTOLIC BP < 90MM HG. 3074F SYST BP LT 130 MM HG. 3078F DIAST BP < 80 MM HG. * Electronic signature of Peggy Garcia MD on 08/20/2025 at 08:09 AM EST Sign off status: Pending * Provider: Franky Garcia M.D. Date: 1 10/16/2024 Generated for Candido ram/Katherine/Mitraitting on: 10/21/2024 08:09 AM EST History and Physical Notes * HPI (History of Present Illness) Category Sub-Category Detail Notes Category Not es Gastroenterology Abdominal Pain Pt states he is having stomach pain in the middle of his stomach. Pt states this started 1 week ago Examination Category Sub-Category Detail Notes Category Not es Gastroenterology Oral cavity: normal Sclera: anicteric Heart sounds: regular, normal S1 S 2 Lungs: clear, no rales or w heezes Abdomen: BS present, soft, no ntender, no guarding or rigidity, no masses felt General Appearance: pleasant, NAD
--- NOTE | 2025-08-20 08:09 | US_ITS ---
FINAL REPORT TECHNIQUE: Multiple transverse and longitudinal images CLINICAL HISTORY: EPIGASTRIC ABD PAIN FINDINGS: The gallbladder shows no wall thickening, distention or stone disease. No biliary ductal dilatation is appreciated. No fluid collections are seen. There is fatty infiltration of the liver. Limited portions of the right kidney are unremarkable. Pancreas is largely obscured. IMPRESSION: Fatty change of the liver. Reviewed, Interpreted and Dictated by Brinda Dunlap MD Transcribed by Reina Hendrickson Authenticated and . [facility]
--- OUTSIDE RECORDS SUMMARY | 2025-08-20 08:09 | XMS_ITS | Patient Health Record ---
Author Organization [facility] Address [address] [place] [id number] Care Team Providers Care Landing Signal Officer Name Role Phone Harshal Garcia Primary Care Provider [phone] Osman Aparicio Unavailable [phone] Allergies No Known Allergies Results Component Value [...] - 38 platlet 231 100 - 400 Urinalysis - Inhouse Reviewed date:05/03/2025 11:21:17 PM Interpretation: Performing Lab: Notes/Report: Color/Clarity Yellow/clear Leuk Neg Nitrite Neg Urobili 3.2 Protein Neg pH 5.5 Blood Neg Sp. Gr. 1.015 Ketone Neg Bili Neg Gluc 2+ Glucose (In-House) Reviewed date:11/26/2024 11:48:02 AM Interpretation:130 Performing Lab: Notes/Report: 130 blood glucose 130 74 - 106 mg/dL P-Comprehensive Metabolic Pa jeanne ([facility]) Reviewed date:11/26/2024 11:48:01 AM Interpretation:gluc 129, Cr 0.69 Performing Lab: Notes/Report: CLIA: [id number] Damon Mireles MD, Rn Care Manager [address] [place] [address] [address], [place] [address] Test performed by [email or web address] Sodium 141 135-145 mmol/L Potassium 4.8 3.5-5.3 [...] Interpretation:7.6 Performing Lab: Notes/Report: Test performed by [facility] [address] [place] [address] [address], [place] [id number] Damon Mireles MD, Rn Care Manager CLIA: [id number] Hemoglobin A1C 7.6 <5.7 % The following HbA1c ranges recommended by the [place] [employer] (ADA) may be used as an aid in the diagnosis of diabetes mellitus. HbA1c Suggested Diagnosis >=6.5% Diabetic 5.7% - 6.4% Pre-Diabetic <5.7% Non-Diabetic P-Lipid Panel Reviewed date:11/26/2024 11:48:02 AM Interpretation:trigs 211, hdl 38 Performing Lab: Notes/Report: Test performed by [facility] [address] [place] [address] [address], [place] [address] Damon Mireles MD, Rn Care Manager CLIA: [id number] Cholesterol 140 <200 mg/dL Triglycerides 211 <150 [...] Interpretation:Normal Performing Lab: Notes/Report: Test performed by [facility] [address] , [address], [place] [address] Damon Mireles MD, Rn Care Manager CLIA: [id number] TSH reflex to FT4 1.04 0.43-5.25 mU/L P-Microalbumin/Creatinine, R andom Urine Sample Reviewed date:11/26/2024 11:48:02 AM Interpretation:a/c 41 Performing Lab: Notes/Report: Test performed by [employer] , [place] [address] Damon Mireles MD, Rn Care Manager CLIA: [id number] Albumin/Creatinine Ratio, Urine 41 0-30 ug/mg Microalbumin, Urine, Random 2.1 Creatinine, Urine 50.9 P-Uric Acid Reviewed date:11/26/2024 11:48:02 AM Interpretation:Normal Performing Lab: Notes/Report: Test performed by [facility] [address] , [address], [place] [address] Damon Mireles MD, Rn Care Manager CLIA: [id number] Uric Acid 4.0 3.4-8.0 mg/dL Estimated Average Glucose Reviewed date:11/26/2024 11:48:02 AM Interpretation:171 Performing Lab: Notes/Report: Test performed by [facility] [address] , [address], [place] [address] Damon Mireles MD, Rn Care Manager CLIA: [id number] Estimated Average Glucose (eAG) 171 Estimated Average Glucose (eAG) is calculated using the equation eAG = (28.7 x HbA1c) - 46.7 based on the guidelines established by the ADA. If the patient has certain diseases including kidney disease, sickle cell anemia, thalassemia, or is taking medications such as dapsone, erythropoietin, or iron, eAG should not be evaluated. X ray : Spine, thoracic spin e Reviewed date:02/28/2025 05:02:40 PM Interpretation:mild degenerative change Performing Lab: Notes/Report: mild degenerative change Urinalysis - Inhouse Reviewed date:03/29/2025 08:07:21 AM Interpretation: Performing Lab: Notes/Report: Color/Clarity Yellow/Clear Leuk Neg Nitrite Neg Urobili 3.2 Protein Neg pH 6.5 Blood Neg Sp. Gr. 1.015 Ketone Neg Bili Neg Gluc 2+ Glycohemoglobin A1c (in hous e) Reviewed date:05/03/2025 11:21:08 PM Interpretation:6.3 Performing Lab: Notes/Report: 6.3 glycohemoglobin 6.3% 5 - 6.5 % P-Amylase Reviewed date:08/17/2025 01:09:40 PM Interpretation:Normal Performing Lab: Notes/Report: Test performed by [facility] [address] [place] [address] , [address], [place] [address] Daniel Garber MD, PhD, [facility], Rn Care Manager CLIA: [id number] Amylase 61 28-100 U/L P-Comprehensive Metabolic Pa jeanne (CMP) Reviewed date:08/17/2025 01:09:40 PM Interpretation:Normal Performing Lab: Notes/Report: Test performed by [facility] [address] [place] [address] , [address], [place] [address] Daniel Garber MD, PhD, [facility], Rn Care Manager CLIA: [id number] Sodium 140 135-145 mmol/L Potassium 5.0 3.5-5.3 [...] Interpretation:Normal Performing Lab: Notes/Report: Test performed by [employer], [address] [facility] , [address], [place] [address] Daniel Garber MD, PhD, [facility], Rn Care Manager CLIA: [id number] Lipase 38.3 13.0-60.0 U/L Medications Medication SIG (Take, Route, Frequency, Duration) Notes Start Date End Date Status Omeprazole Magnesium 20 MG 1 tablet 1/2 to 1 hour before morning meal Orally Once a day 08/15/2025 Active metFORMIN HCl 1000 MG Take 1 Tablet by m out twice daily with a meal.; Duration: 90 Active Pioglitazone HCl 30 MG Take 1 Tablet by mouth once daily.; Duration: 90 Active Allopurinol 300 MG 1 tab(s) orally once a day; Duration: 90 days Active Ozempic (1 MG/DOSE) 4 MG/3ML Inject 1 mg under the skin once weekly.; Duration: 28 Active Jardiance 25 MG Take 1 Tablet by cathie th once daily.; Duration: 30 Active CPAP machine and supplies - as directed as directed Active Losartan Potassium 100 MG Take 1 Tablet by mouth once daily.; Duration: 90 Active Diclofenac Sodium 75 MG 1 tablet as need ed Orally Twice a day Active Spironolactone 25 MG Take 1 Tablet by mo [facility] once daily.; Duration: 90 Active Accu-Chek Softclix Lancets - USE TO TEST BLOOD SUGAR TWICE DAILY; Duration: 30 Active Accu-Chek Jaz Plus - Use to check bloo d sugar twice daily as directed.; Duration: 25 Active Multivitamin - 1 tab(s) orally once a day Active Simvastatin 20 MG Take 1 Tablet by cathie once daily at bedtime.; Duration: 90 Active [...] (65yr and older) Unknown 05/29/2024 Pending Fluzone High Dose (65yr and older) IM Intramuscular 06/26/2025 Administered COVID 19 Moderna Unknown 11/07/2020 Administered COVID 19 Moderna Unknown 12/03/2020 Administered COVID 19 Moderna Unknown 09/02/2021 Administered Problems Problem Type SNOMED Code ICD Code Onset Dates Problem Status W/U Status Risk Notes Problem Essential hypertension (95193775) Essential hypertension (I10) Active confirmed Problem Morbid obesity (470124399) Morbid obesity (E66.01) Active confirmed Problem Pure hypercholesterolemia (511015005) Pure hypercholesterolemia (E78.0) Active confirmed Problem Degeneration of lumbar intervertebral disc (85191199) Lumbar degenerative disc disease (M51.36) Active confirmed Problem Urinary hesitancy (3419683) Urinary hesitancy (R39.11) Active confirmed Problem Type II diabetes mellitus without complication (315127408) Type 2 diabetes mellitus without complication (E11.9) Active confirmed Problem Obstructive sleep apnea syndrome (28476076) Obstructive sleep apnea syndrome (G47.33) Active confirmed Problem Gout (17172544) Gout, unspecifie d cause, unspecified chronicity, unspecified site (M10.9) Active confirmed Problem Tinnitus of right ea r (0092465995208) Tinnitus of right ear (H93.11) Active confirmed Problem Pure hypercholesterolemia (061634745) Pure hypercholesterolemia (E78.00) Active confirmed Problem Pure hypercholesterolemia (214556937) Pure hypercholesterolemia, unspecified (E78.00) Active confirmed Problem Hearing loss (80419332) Hearing loss, unspecified hearing loss type, unspecified laterality (H91.90) Active confirmed Problem Allergic rhinitis (36857792) Non-seasonal allergic rhinitis, unspecified trigger (J30.89) Active confirmed Problem Type II diabetes mellitus without complication (206222494) Type 2 diabetes mellitus without complication, unspecified whether long term acute care registered nurse insulin use (E11.9) Active confirmed Vital Signs Heart Rate 83 /min 08/15/2025 Blood pressure diastolic 62 mm Hg 08/15/2025 Height 65.5 in 08/15/2025 Blood pressure systolic 122 mm Hg 08/15/2025 Weight 250.6 lbs 08/15/2025 BMI 41.06 kg/m2 08/15/2025 Encounters Encounter Location Date Provider Diagnosis [facility] [address] [place], [place] [id number] 11/24/2024 Harshal Milbridge Type 2 diabetes elvira itus without complication E11.9 ; Essential hypertension I10 ; Pure hypercholesterolemia, unspecified E78.00 and Gout, unspecified cause, unspecified chronicity, unspecified site M10.9 [facility] [address] [place], [place] [id number] 02/26/2025 Harshal Milbridge Pain, upper back M54 .9 and Pain in left elbow M25.522 [facility] [address] [facility] [address] [place], [place] [id number] 03/28/2025 Harshal Milbridge Dysuria R30.0 [facility] [address] [facility] [address] [place], [place] [id number] 05/03/2025 Harshal Milbridge Encounter for Depart ment of Transportation (DOT) examination for ronald license Z02.4 [facility] [address] [facility] [address] [place], [place] [id number] 06/26/2025 Harshal Milbridge Encounter for immunization Z23 [facility] [address] [place], [place] [id number] 08/15/2025 Harshal Milbridge Epigastric abdominal pain R10.13 and Heartburn R12 [facility] [address] [place], [place] [id number] 09/29/2024 Harshal Milbridge Type 2 diabetes elvira itus without complication, unspecified whether skilled nursing insulin use E11.9 [facility] [address] [place], [place] [id number] 11/26/2024 Harshal Milbridge [facility] [address] [place], [place] [id number] 12/18/2024 Harshal Milbridge Type 2 diabetes elvira itus without complication E11.9 [facility] [address] [place] [id number] 02/14/2025 Harshal Milbridge [facility] [address] [place], [place] [id number] 02/28/2025 Harshal Milbridge [facility] [address] [place] [id number] 03/13/2025 Harshal Milbridge [facility] [address] [place], [place] [id number] 04/03/2025 Harshal Garcia Assessments Encounter Date Diagnosis (ICD Code) Assessment Notes Treatment Notes Treatment Clinical Notes Section Notes 09/29/2024 Type 2 diabetes mellitus without complication, unspecified whether long term acute care registered nurse insulin use (ICD-10 - E11.9) 11/24/2024 Essential hypertension (ICD-10 - I10) 11/24/2024 Type 2 diabetes mellitus without complication (ICD-10 - E11.9) 12/18/2024 Type 2 diabetes mellitus without complication (ICD-10 - E11.9) 02/26/2025 Pain in left elbow (ICD-10 - M25.522) 02/26/2025 Pain, upper back (ICD-10 - M54.9) heating pad to affected areas 2 to 3 times a day TENS unit OTC recommended 03/28/2025 Dysuria (ICD-10 - R30.0) 05/03/2025 Encounter for Department of Transportation (DOT) examination for ronald license (ICD-10 - Z02.4) 06/26/2025 Encounter for immunization (ICD-10 - Z23) 08/15/2025 Heartburn (ICD-10 - R12) 08/15/2025 Epigastric abdominal pain (ICD-10 - R10.13) 11/24/2024 Pure hypercholesterolem ia, unspecified (ICD-10 - E78.00) 11/24/2024 Gout, unspecified cause, unspecified chronicity, unspecified site (ICD-10 - M10.9) 03/28/2025 Other Hold SImvastatin for the next 7 days Plan Of Treatment Pending Test Test Name Order Date Ultrasound : Abdomen limited 08/15/2025 Next Appt Details Provider Name:Harshal Lee ry, 10/31/2025 09:45:00 AM, [address], [address], [place], [place], [id number], Insurance Providers Payer Name Payer Address Payer Phone Subscriber Number Group Number Insured Name Patient Relationship to Insured Coverage Start Date Coverage End Date [employer] [address] [address] [place], [place] [id number] BENJA GARCÍA Self - patient is the insured MEDICARE PART B [address] [address] [place] [address] [id number] BENJA GARCÍA Self - patient is the [...]
--- OUTSIDE RECORDS SUMMARY | 2025-08-20 08:09 | XMS_ITS | Clinical Summary ---
Author Organization [facility] Address [address] [place], [place] [address] Phone Care Team Providers Care Slurry Tank Tender Name Role Phone Harshal Garcia MD Primary Care Provider [phone] Allergies No known active allergies Medications metFORMIN [...] daily. Active oxymetazoline (AFRIN) 0.05 % Nasl Simpson, Non-Aerosol 2 Sprays by Nasal route 2 times daily. Active BLOOD SUGAR DIAGNOSTIC [facility] [place] 02/17/2023 Act isrrael JARDIANCE 25 mg Oral Tablet Take 25 mg by mouth daily. 2024 Active fluticasone propionate (FLONASE) 50 mcg/actuation Nasl Simpson, Suspension Daily 08/31/2022 Active ACCU-CHEK SOFTCLIX LANCETS [facility] [...] Rotator cuff syndrome of left shoulder 8 Surgical History Surgery Date Site/Laterality Comments SHOULDER [...] on file Sexual Orientation Not on file Last Filed Vital Signs Vital Sign Reading [...] 01/31/2024 8:59 AM EDT Plan of Treatment Upcoming Encounters Date Type Department Care Team (Late st Contact Info) Description 02/25/2026 10:45 AM EDT Office Visit [facility] [address] [place] [address] Malachi Schafer MD [address] [place] [address] Health Maintenance Due Date Last Done Comments Wellness Exam Medicare 1963 Hepatitis C Screening 1977 DTaP/TDaP/Td (1 - Tdap) 1978 Cologuard 01/29/2004 Colon Cancer Screening 01/29/2004 Colonoscopy 01/29/2004 FIT 01/29/2004 Sigmoidoscopy 01/29/2004 Virtual Colonography 01/29/2004 Pneumococcal Vaccine 50+ (1 of 1 - PCV) 2009 RSV or 60+ (1 - Risk 50-74 years 1-dose series) 2009 Zoster (1 of 2) 2009 COVID-19 Vaccine ( season) 2025 09/02/2021, 12/03/2020, 11/07/2020 Influenza Vaccine (#1) 2025 , 06/18/2021, 06/14/2019, Additional history exists Hepatitis B Vaccine Aged Out No longe r eligible based on patient's age to complete this topic Meningococcal B Vaccine Aged Out No l onger eligible based on patient's age to complete this topic Insurance [employer] MEDICARE HMO MR [employer] MEDICARE HMO MR Care Teams Slurry Tank Tender Relationship Specialty Start Date End Date Harshal Garcia MD [address] [place] [address] [place] [id number] PCP - General Family Medicine 08/05/18
== END 2025-08-20 23:59 | disposition home or self-care (01) ==
LOC: RAD 08:07
PROVIDERS: PCP Family Medicine; Visit Provider Family Medicine
DX: K76.0 Fatty (change of) liver, not elsewhere classified (principal)
CPT/HCPCS: 76705